=== PATIENT | female | born 1950 | race Caucasian/White ===

== ENCOUNTER 2020-03-30 14:59 | Outpatient (CLI) | payer MEDICARE, OTHER, SELFPAY ==
--- NOTE | ~2020-03-30 | MM_ITS ---
EXAMINATION: MM screening santy BI w sean HISTORY: Screening mammogram TECHNIQUE: Craniocaudal and mediolateral oblique 3-D tomosynthesis images were obtained and synthetic 2-D images were generated. CAD analysis was submitted and interpreted. COMPARISON: 10/21/2018, 01/28/2017, 07/13/2014 bilateral digital screening mammogram examinations BREAST PARENCHYMAL COMPOSITION: The breasts are extremely dense, which lowers the sensitivity of mamm ography. FINDINGS: Multiple bilateral benign .breast calcifications are noted. There is no evidence of suspici ous mass, calcification, or architectural distortion to suggest malignancy in either breast. There herbert s been no suspicious interval change. IMPRESSION: 1. No mammographic evidence of malignancy. 2. Recommend routine screening mammography in one year. BI-RADS Category 2: Benign finding(s). Reviewed, dictated and finalized at location A.
== END 2020-03-30 15:00 | disposition home or self-care (01) ==
LOC: ANHIMG 15:03
PROVIDERS: PCP Family Medicine; Visit Provider Family Medicine
DX: Z12.31 Encounter for screening mammogram for malignant neoplasm of breast (principal)
CPT/HCPCS: 77063; 77067

== ENCOUNTER 2021-02-09 10:00 | Outpatient (RCR) | payer MEDICARE, OTHER, SELFPAY ==
--- NOTE | 2021-01-17 16:25 | PTOPEVAL ---
PHYSICAL THERAPY EVALUATION AND PLAN OF CARE Thank you for referring Aspen Boucher to [facility].? The patient is scheduled to be seen for therapy? 2x/week for 4 weeks. Please review, sign, date and return this plan of care CLARA. I agree with and certify that the following plan of care is medically necessary. Referring Physician Date Evaluation Outpatient Past Medical History Neurological History Hx Parkinson's Disease Yes Musculoskeletal History Hx Osteoporosis Yes Diagnosis parkinson's disease/freezing Subjective Information Aspen is here today with a Query Text:As Reported By Patient/ diagnosis of PD with Family increased episodes of freezing . She reports that in the winter of 2020 she sprained her right ankle medially and laterally and it continues to be somewhat sore, but since then she noticed increased episodes of right foot sticking to the ground and freezing and scuffing. She does have some pain while walking at the end of the day, but she is able to do alot of yard work through out the day . She also experiences on/off symptoms with her medication and also experiences extreme episodes of fatigue on occasion. Right Ankle(s) Reported Pain Level 3 Pain Description Aching Lowest Pain Intensity 0 Greatest Pain Intensity 6 Pain Aggravating Factors Stair Climbing,Walking,Weight Bearing/Standing Pain Behaviors None Pain Score Pain Score 3: Self Report Interventions Used Interventions Used By Clinicians Exercise Lower Extremity Range of Motion General Lower Extremity Range of Motion Gross Lower Extremity Range of Motion grossly WNL, no noted ROM Comments deficits to right ankle Lower Extremity Muscle Strength Testing Hip Strength Left Hip Flexion Strength 4+ Good + Hip Abduction Strength 3+ Fair + Right Hip Flexion Strength 5 Normal Hip Abduction Strength 4- Good - Ankle Strength Right Ankle Dorsiflexion Strength 4+ Good + Ankle Eversion Strength 2+ Poor + Ankle Inversion Strength 4+ Good + Ankle Strength Comments right eversion painful to hold to MMT Palpation Assessment Palpation
--- NOTE | 2021-02-09 10:46 | PTOPEVAL ---
PHYSICAL THERAPY DISCHARGE NOTE Thank you for referring Aspen Boucher to [facility].? Please review, sign, date and return this plan of care CLARA. I agree with and certify that the following plan of care is medically necessary. Referring Physician Date Discharge Diagnosis parkinson's disease/freezing Subjective Information Aspen comes in today Query Text:As Reported By Patient/ stating that she realizes she Family needs to take some time to focus more on herself and her walking and her exercise. She also needs to realize that she does not need to do all of the things she thinks she does at once. She would like to finish up with PT at this time Self Report Pain Assessment Right Ankle(s) Reported Pain Level 0 Pain Description Aching Pain Aggravating Factors Stair Climbing,Walking,Weight Bearing/Standing Pain Behaviors None Pain Score Pain Score 0: Self Report Interventions Used Interventions Used By Clinicians Exercise Lower Extremity Muscle Strength Testing Hip Strength Left Hip Flexion Strength 5 Normal Hip Abduction Strength 4 Good Right Hip Flexion Strength 5 Normal Hip Abduction Strength 4+ Good + Ankle Strength Right Ankle Dorsiflexion Strength 5 Normal Ankle Eversion Strength 3+ Fair + Ankle Inversion Strength 5 Normal Rehab Teaching Rehab Teaching Teaching Topic Rehab Teaching Topic Components Exercise,Home Program As Pertains To Safety,Technique Recipient Patient Learning Preferences Demonstration,Discussion,One- on-One Instruction Barriers to Learning None Readiness to Learn Excellent Response Verbalizes Understanding Method Discussion Additional Rehab Teaching Comments discussed her lifestyle and appropriate and safe changes PT Clinical Summary Aspen would like to wrap up PT at this time. She feels confident in her ability to work on her exercise and how she moves so that she can continue to be functional and continue to improve her situation. We will d/c from PT at this time. Rehabilitation Potential
== END 2021-02-09 15:56 | disposition home or self-care (01) ==
LOC: ANHPT 10:00
PROVIDERS: PCP Family Medicine
DX: G20 Parkinson's disease (principal)
CPT/HCPCS: 97110; 97162

== ENCOUNTER 2022-02-01 14:26 | Outpatient (CLI) | payer MEDICARE, SELFPAY ==
[2022-02-01 15:23] LABS: Albumin Level 4.3 g/dL (3.4-5.0); Anion Gap 4 mmol/L (8-16); Blood Urea Nitrogen 14 mg/dL (7-18); Calcium 9.9 mg/dL (8.5-10.1); Carbon Dioxide 28 mmol/L (21-32); Chloride 102 mmol/L (98-108); Estimated Glomerular Filt Rate > 60; Glucose 93 mg/dL (70-99); Osmolality Calculated 278 mOsm/kg (285-295); Phosphorus 2.8 mg/dL (2.6-4.7); Potassium 4.2 mmol/L (3.5-5.1); Sodium 134 mmol/L (136-145); Thyroid Stimulating Hormone 0.92 uIU/mL (0.36-3.74)
[2022-02-04 10:33] LABS: Ionized Calcium 5.4 mg/dL (4.8-5.6)
[2022-02-06 15:11] LABS: Parathyroid Intact 127 pg/mL (14-64)
[2022-02-08 14:17] LABS: Vitamin D 25 Hydroxy 42 ng/mL (30-100)
== END 2022-02-01 14:27 | disposition home or self-care (01) ==
PROVIDERS: PCP Family Medicine; Visit Provider Internal Medicine Endocrinology, Diabetes & Metabolism
DX: M81.0 Age-related osteoporosis without current pathological fracture (principal); E83.52 Hypercalcemia
CPT/HCPCS: 36415; 80069; 82306; 82330; 83970; 84443

== ENCOUNTER 2022-02-20 08:39 | Outpatient (CLI) | payer MEDICARE, OTHER, SELFPAY ==
--- NOTE | ~2022-02-20 | NM_ITS ---
EXAMINATION: NM parathyroid imaging w spect DATE: 02/20/2022 12:01 INDICATION: Evaluate parathyroid adenoma TECHNIQUE: 20.3 mCi Tc99m tetrofosmin (Myoview) was administered by intravenous route. Anterior image s of the neck were obtained at 10 minutes and 2 1/2 hours. COMPARISON: None. FINDINGS/IMPRESSION: There is no focus of persistent activity in the area of the thyroid or mediastinum to suggest parathy roid adenoma. Reviewed, dictated and finalized at location A.
== END 2022-02-20 08:40 | disposition home or self-care (01) ==
PROVIDERS: PCP Family Medicine; Visit Provider Internal Medicine Endocrinology, Diabetes & Metabolism
DX: E21.3 Hyperparathyroidism, unspecified (principal); E55.9 Vitamin D deficiency, unspecified; M81.0 Age-related osteoporosis without current pathological fracture; Z87.442 Personal history of urinary calculi
CPT/HCPCS: 78071; A9500

== ENCOUNTER 2022-04-02 07:23 | Outpatient (CLI) | payer MEDICARE, SELFPAY ==
[2022-04-02 07:56] LABS: Creatinine Urine 83.39 mg/dL (40-278)
[2022-04-02 07:57] LABS: Creatinine 24 Hour Urine 1.04 g/24 hr (0.60-1.80); Total Volume 24 Hour Urine 1250 ml
[2022-04-06 05:14] LABS: Total Volume 1250 mL; Urine Calcium 21.4 mg/dL
== END 2022-04-02 07:24 | disposition home or self-care (01) ==
LOC: CHSLAB 07:25
PROVIDERS: PCP Family Medicine; Visit Provider Internal Medicine Endocrinology, Diabetes & Metabolism
DX: M81.0 Age-related osteoporosis without current pathological fracture (principal); E21.3 Hyperparathyroidism, unspecified; Z87.442 Personal history of urinary calculi
CPT/HCPCS: 81050; 82340; 82570

== ENCOUNTER 2022-08-06 11:26 | Outpatient (CLI) | payer MEDICARE, SELFPAY ==
[2022-08-06 13:19] LABS: Albumin Level 4.7 g/dL (3.5-5.1); Anion Gap 6 mmol/L (8-16); Blood Urea Nitrogen 16 mg/dL (7-17); Calcium 10.4 mg/dL (8.4-10.2); Carbon Dioxide 28 mmol/L (22-30); Chloride 101 mmol/L (98-107); Estimated Glomerular Filt Rate > 60; Glucose 92 mg/dL (65-110); Phosphorus 2.8 mg/dL (2.5-4.5); Potassium 4.1 mmol/L (3.4-5.0); Sodium 135 mmol/L (137-145)
[2022-08-06 13:32] LABS: Parathyroid Intact 134.5 pg/mL (7.5-53.5)
[2022-08-06 13:33] LABS: Vitamin D 25 Hydroxy 43.5 ng/mL
== END 2022-08-06 11:27 | disposition home or self-care (01) ==
LOC: ANHWCLAB 11:31
PROVIDERS: PCP Family Medicine; Visit Provider Internal Medicine Endocrinology, Diabetes & Metabolism
DX: E21.3 Hyperparathyroidism, unspecified (principal); N20.0 Calculus of kidney; E55.9 Vitamin D deficiency, unspecified; M81.0 Age-related osteoporosis without current pathological fracture
CPT/HCPCS: 36415; 80069; 82306; 83970

== ENCOUNTER 2022-08-10 07:22 | Outpatient (CLI) | payer MEDICARE, OTHER, SELFPAY ==
--- NOTE | ~2022-08-10 | MM_ITS ---
EXAMINATION: MM screening santy BI w sean HISTORY: Screening TECHNIQUE: Craniocaudal and mediolateral oblique 3-D tomosynthesis images were obtained and synthetic 2-D images were generated. CAD analysis was submitted and interpreted. COMPARISON: Comparison to multiple prior studies sequentially, with oldest reviewed study dated 08/2014. BREAST PARENCHYMAL COMPOSITION: The breasts are extremely dense, which lowers the sensitivity of mamm ography. FINDINGS: There are scattered benign-appearing bilateral breast calcifications. There are no new mass es, calcifications or architectural distortion in either breast to suggest malignancy. IMPRESSION: 1. No mammographic evidence of malignancy. 2. Recommend routine screening mammography in one year. BI-RADS Category 2: Benign finding(s). Reviewed, dictated and finalized at location B. [employer]
--- NOTE | ~2022-08-10 | DEXA_ITS ---
Bone Density Report Name: BILLIE MCCOY Age: 72 Sex: Female Ethnicity: White Date of : 1950 Indication: postmenopausal; screening for osteoporosis; Referring Provider: ISABELLA RICHTER Study: Bone densitometry was performed. Exam Date: August 10, 2022 Accession number: [id number] Bone Density: Region BMD T-score Z-score Classification AP Spine(L1-L4) 1.006 -0.4 1.8 Normal Femoral Neck (Left) 0.545 -2.7 -0.9 Osteoporosis Total Hip (Left) 0.707 -1.9 -0.4 Osteopenia Femoral Neck (Right) 0.562 -2.6 -0.8 Osteoporosis Total Hip (Right) 0.629 -2.6 -1.0 Osteoporosis Total Hip Mean 0.668 -2.3 -0.7 Osteopenia World Health Organization criteria for BMD impression classify patients as: Normal (T-score at or above -1.0), Osteopenia (T-score between -1.0 and -2.5), or Osteoporosis (T-score at or below -2.5). 10-year Fracture Risk: FRAX not reported because: Some T-score for Spine Total or Hip Total or Femoral Neck at or below -2.5 Treated for osteoporosis Clinical Information Provided by Patient: Smokes Is being treated for osteoporosis Has used the following medications: Reclast (i.e. zoledronate), Vitamin D, Calcium Patient maximum height was 64 Menopause Age: 48 Onset of menses at age 13 Number of children 2 Impression: The patient has osteoporosis, based on the Left Femoral Neck T-score. The patient has risk factors, including: smoking. Discussion: It is important to ask patients whether they are taking their medications and to encourage continued and appropriate compliance with their osteoporosis therapies to reduce fracture risk. It is also important to review their risk factors and encourage appropriate calcium and vitamin D intakes, exercise, fall prevention and other lifestyle measures. Follow-Up: Consider a repeat BMD and Vertebral Fracture Assessment (VFA) exam in 2 years or sooner if medically necessary, to reassess this patient's status. Reported by: RODOLFO on 08/10/2022 7:56:00 AM. Reviewed, dictated and finalized at location AYamila BARON
== END 2022-08-10 07:23 | disposition home or self-care (01) ==
PROVIDERS: PCP Family Medicine; Visit Provider Internal Medicine Endocrinology, Diabetes & Metabolism
DX: Z12.31 Encounter for screening mammogram for malignant neoplasm of breast (principal); M81.0 Age-related osteoporosis without current pathological fracture; M85.852 Other specified disorders of bone density and structure, left thigh; M85.851 Other specified disorders of bone density and structure, right thigh
CPT/HCPCS: 77063; 77067; 77080

== ENCOUNTER 2023-01-07 00:46 | Day surgery (SDC) | payer MEDICARE, OTHER, SELFPAY ==
[2022-12-27 14:01] VITALS: BMI 16.6
[2023-01-07 08:10] VITALS: BP 120/64; PULSE 59; RESP 18; TEMP 36.6; O2SAT 100; BMI 16.2
[2023-01-07] MEDS: LACTATED RINGERS 1,000 ML 150 ML IV CONT (08:35)
--- NOTE | 2023-01-07 08:49 | WPDHPUPDATE1 ---
History and Physical Update Update Date/Time: 01/07/23 08:49 History and Physical has been reviewed, including an updated exam of the patient. There are NO changes in the patient's condition. Risks, benefits, and alternatives have been discussed and questions answered. Patient agrees to proceed with procedure.
--- NOTE | 2023-01-07 09:17 | WPDANESEPPF ---
Anes - Initial Pre Proc Eval Procedure: Operation Date: 01/07/23 09:30 Proposed Procedures p Colonoscopy - Sebastian Moreau MD Date/Time: 01/07/23 09:17 Surgeon: Sebastian Moreau MD Pre Op Diagnosis: hx colon polyps,chronic idiopathic constipation Patient Data Age: 72 Gender: F Height: 1.63 m Weight: 43 kg Last Vital Signs Temp 36.6 C 01/07/23 08:10 Pulse 59 L 01/07/23 08:10 Resp 18 01/07/23 08:10 BP 120/64 01/07/23 08:10 Pulse Ox 100 01/07/23 08:10 O2 Del Method Room Air 01/07/23 08:10 Allergies Allergy/AdvReac Type Severity Reaction Status Date / Time gentamicin Allergy Intermediate Swelling Verified 12/27/22 14:03 Iodinated Contrast Media Allergy Hives Verified 12/27/22 14:03 Home Medications Medication Instructions Recorded Confirmed Type acetaminophen 650 mg 650 mg PO Q12H 10/11/20 12/27/22 History tablet,extended release (Tylenol 8 Hour) carbidopa ER 50 mg-levodopa 200 mg 1 tablet PO QHS 10/11/20 12/27/22 History tablet,extended release mirtazapine 30 mg tablet 30 mg PO HS 10/11/20 12/27/22 History naproxen 250 mg tablet 250 mg PO HS PRN Pain 10/11/20 12/27/22 History melatonin 10 mg capsule 10 mg PO QHS 07/26/21 12/27/22 History carbidopa ER 25 mg-levodopa 100 mg 1.5 tablet PO .SIX TIMES A DAY 02/01/22 12/27/22 History tablet,extended release cholecalciferol (vitamin D3) 25 2,000 unit PO DAILY 02/01/22 12/27/22 History mcg (1,000 unit) capsule lorazepam 0.5 mg tablet 0.5 mg PO TID PRN Anxiety 02/01/22 12/27/22 History lactulose 10 gram/15 mL oral 15 ml PO BID #946 mL 12/26/22 12/27/22 Rx solution docusate sodium 100 mg capsule 100 mg PO DAILY 12/27/22 12/27/22 History entacapone 200 mg tablet 200 mg PO .FOUR TIMES A DAY 12/27/22 12/27/22 History zoledronic acid 5 mg/100 mL in 1 ea IV DIRECTED 12/27/22 12/27/22 History mannitol 5 %-water intravenous piggybck (Reclast) Patient hx anesthesia problems: none Family hx anesthesia problems: none Results Review: All pre-operative results and documents have been reviewed as part of the pre-operative evaluation. [facility] Past Medical History Medical History (Updated 01/07/23 @ 09:18 by Jean Paul Mendez DO) Anxiety Depression GERD (gastroesophageal reflux disease) IBS (irritable bowel syndrome) Parkinson's disease Family History Family History Father Family history of malignant neoplasm of stomach Family history of malignant neoplasm Sibling Family history of malignant melanoma Other Alcoholism Cancer Social History Social History Smoking packs per day: 1.5 Smoking cigarettes per day: 30.0 Years smoked: 50 Smoking pack-years: 75.00 Smoking status: Current every day smoker Tobacco type: cigarettes Second hand tobacco smoke exposure: Yes Alcohol intake: current Alcohol use details: rarely Substance use: never Substance use type: does not use Living arrangements: with family Spiritual care concerns: No Anes - Eval Final PreProcedure Day of Procedure 01/07/23 09:17 Patient weight: normal Heart: regular rate and rhythm Lungs: clear to auscultation and normal air movement Airway: Mallampati scale class II Neurological: alert and oriented Last oral intake: >/= 8 hours ASA classification: III Emergent: no Anesthetic plan: proceed Anesthesia type and monitoring: general GIVS and standard monitoring Results Review: All pre-operative results and documents have been reviewed as part of the pre-operative evaluation. Informed Consent: The patient's anesthetic plan and its attendant risks and benefits were discussed with the patient/family/POA. Questions were solicited and answers provided to the satisfaction of the patient/family/POA.
[2023-01-07 09:56] VITALS: BP 119/66; PULSE 66; RESP 20; O2SAT 100
[2023-01-07 10:06] VITALS: BP 117/66; PULSE 67; RESP 20; O2SAT 100
[2023-01-07 10:16] VITALS: BP 124/75; PULSE 62; RESP 20; O2SAT 100
== END 2023-01-07 10:25 | disposition home or self-care (01) ==
PROVIDERS: PCP Family Medicine; Visit Provider Internal Medicine Gastroenterology
PROC: 0DJD8ZZ Inspection of Lower Intestinal Tract, Via Natural or Artificial Opening Endoscopic (ICD-10-PCS; CPT 45378; principal; 2023-01-07 09:30)
DX: K59.04 Chronic idiopathic constipation (principal); K62.1 Rectal polyp; G20 Parkinson's disease; K21.9 Gastro-esophageal reflux disease without esophagitis; E21.3 Hyperparathyroidism, unspecified; F17.210 Nicotine dependence, cigarettes, uncomplicated; F41.9 Anxiety disorder, unspecified; F32.A Depression, unspecified
CPT/HCPCS: 45385; 88305; J2704; J7120

== ENCOUNTER 2023-11-11 11:45 | Outpatient (CLI) | payer MEDICARE, OTHER, SELFPAY ==
--- NOTE | ~2023-11-11 | MM_ITS ---
EXAMINATION: MM screening santy BI w sean HISTORY: Screening TECHNIQUE: Craniocaudal and mediolateral oblique 3-D tomosynthesis images were obtained and synthetic 2-D images were generated. CAD analysis was submitted and interpreted. COMPARISON: Comparison to multiple prior studies sequentially, with oldest reviewed study dated 08/2014. BREAST PARENCHYMAL COMPOSITION: Dense: The breasts are extremely dense, which lowers the sensitivity of mammography. FINDINGS: There is no evidence of suspicious mass, calcification, or architectural distortion to sugg est malignancy in either breast. There has been no suspicious interval change. IMPRESSION: 1. No mammographic evidence of malignancy. 2. Recommend routine screening mammography in one year. BI-RADS Category 1: Negative Reviewed, dictated and finalized at location B.
== END 2023-11-11 11:46 | disposition home or self-care (01) ==
PROVIDERS: PCP Family Medicine; Visit Provider Family Medicine
DX: Z12.31 Encounter for screening mammogram for malignant neoplasm of breast (principal)
CPT/HCPCS: 77063; 77067

== ENCOUNTER 2025-01-08 14:30 | Outpatient (CLI) | payer MEDICARE, OTHER, SELFPAY ==
--- NOTE | ~2025-01-08 | XR_ITS ---
Lumbosacral Spine: AP and lateral views Clinical History: Pain Findings: The normal lordotic curve is maintained. The vertebral bodies and posterior elements are i ntact. There is advanced degenerative disc narrowing at L2-L3. No instability evident on flexion or e xtension. There is moderate degenerative disc narrowing L3-L4. There is moderate facet arthropathies of the lumbar spine. The sacroiliac joints are normally outlined. Impression: Moderate degenerative spondylitic changes, as above. Reviewed, dictated and finalized at location M. Impression: Moderate degenerative spondylitic changes, as above.
--- OUTSIDE RECORDS SUMMARY | 2025-01-08 14:33 | XMS_ITS | Clinical Summary ---
Author Organization [facility] Address [address] [place] [address] Care Team Providers Care Counter Server Name Role Phone Roxie Meadows MD Primary Care Provider [phone] Wilner Rosario MD Unavailable [phone] Allergies Active Allergy Reactions Criticality Noted Date Comments Gentamicin Unknown Iodinated Contrast Media Hives High Reaction: Hives, Medications melatonin 10 mg tablet 1 tablet (10 mg total) nightly Active LORazepam (ATIVAN) 0.5 mg tablet Take by mouth 3 (three) times a day as needed Take 1 tab once day and 1 tab up to twice daily thereafter PRN 0 Active docusate sodium (COLACE) 100 mg capsuleIndicati ons:constipatio n Take 1 capsule (100 mg total) by mouth 3 (three) times a day Active bisacodyl EC (DULCOLAX EC) 5 mg EC tabletIndicatio ns:constipation Take 3 tablets (15 mg total) by mouth daily as needed for constipation Active acetaminophen (TYLENOL) 500 mg tablet Take 2 tablets (1,000 mg total) by mouth daily Active naproxen (ALEVE) 220 mg tablet Take 1 tablet (220 mg total) by mouth nightly Active zoledronic acid 4 mg/5 mL injection Active mirtazapine (REMERON) 30 mg tabletIndicatio ns:Other specified anxiety disorders TAKE 1 TABLET BY MOUTH EVERY DAY IN THE EVENING 90 tablet 2 3 Active carbidopa-levod opa CR (SINEMET CR) 50-200 mg per CR tablet TAKE 1 TABLET BY MOUTH NIGHTLY 90 tablet 3 3 Active carbidopa-levod opa (SINEMET) 25-100 mg per tabletIndicatio ns:Parkinson's disease (HCC) TAKE 1 AND 1/2 TABLETS BY MOUTH AT 4AM, 7AM, 10PM, 1PM, 4PM, 7PM 810 tablet 1 4 Active Active Problems Problem Noted Date Diagnosed Date Orthostatic hypotension 08/16/2021 Radial styloid tenosynovitis 03/27/2019 REM sleep behavior disorder 03/27/2019 S/P laparoscopic appendectomy 01/13/2019 Serrated adenoma of colon 01/13/2019 Mass of appendix 12/17/2018 Anxiety disorder 03/19/2018 Disturbance in sleep behavior 03/19/2018 Keratosis, senilis 04/19/2017 Overview (09/20/2017): Description: Reassured Parkinson's disease 03/13/2017 Assessment & Plan (09/26/2022 5:18 PM CDT): She has relatively mild stage 2 PD with R>L resting tremor and bradykinesia, with good response to levodopa. She has wearing off between that is becoming more bothersome, particularly mid-day. She also has peak-dose dyskinesias that are becoming bothersome, and more recent development of orthostasis as another side-effect. She is doing very well cognitively. At this point we would like to try adding a low dose of amantadine (somewhat reluctantly) to benefit both parkinsonism and dyskinesias. We will need to be cautious about potential side-effects including impaired cognition (less of a concern in her case), orthostasis, and constipation (which are big concerns for her). For these reasons we do not want to increase beyond 100mg once daily. We discussed these potential side-effects with her, and she will notify us if she has any problems. For constipation, we recommended she retry Miralax starting with 1 tbsp daily and increasing as needed up to 2 tbsp twice daily as well as plenty of water, salt and activity. Her mood remains well good with mirtazapine. f lightheadedness worsens we may need to add fludrocortisone in the future, but for now just encourage her to maintain good fluid and salt intake and elevate the head of the bed 4-6 inches on cinder blocks. She has persistent RBD despite melatonin 10mg, but is not injuring herself or her . We can increase up to 20mg in the future, but will wait to see how she responds to amantadine. I Recommendations: -Continue same carbidopa/levodopa -Start amantadin e 100mg once daily. We do not want to increase beyond that due to potential for worsening orthostasis and constipation. Strategy and side-effects discussed. -Start Miralax daily (and increase to twice daily if needed). Continue docusate and PRN bisacodyl. -continue mirtazapine 30mg nightly -continue melatonin 10mg nightly for RBD -Encouraged regular exercise. - encourage lots of fluid and salt intake. - elevate head of the bed 4-6 inches on cinder blocks to help reduce orthostasis. - continue caffeine as she is for treating orthostasis. Assessment & Plan (03/08/2022 1:35 PM CDT): She has relatively mild stage 2 PD with R>L resting tremor and bradykinesia, with good response to levodopa. She does not have wearing off with most doses, with the exception of the mid-afternoon to evening when she frequently has recurrent tremor with associated sleepiness and diffuse pain. She also has some cramping sensation in the right foot with toe curling that on exam at last visit demonstrated clear dystonia. She also has mild dyskinesia. At this point, I would like to be able to give her more levodopa but her standing blood pressures are still 80-90 systolic and she is lightheaded at times. We previously tried midodrine for orthostatic symptoms but it resulted in high sitting BP (to 200s systolic with whooshing in her head). For now we will keep the same CD/LD dose and have her start low dose fludrocort and check sitting/standing BPs and report back to us. She should start [employer] youtube channel exercises but is not interested in PT. Constipation continues to be an issue, which can lead to worsening PD symptoms. She tried and failed Miralax, Linzess and Amitiza (no effect). We recommended she continue stool softener, PRN Dulcolax pills and PRN bisacodyl suppository. She does not have any evident cognitive impairment, and overall she is doing extremely well considering symptom onset was 10 years ago. Mood and anxiety are not great but she is on mirtazapine 30 mg which is very helpful for sleep and she thinks part of her depression is situational (Covid isolation, caring for her after a major stroke). If this doesn't improve as she starts to socialize more at a gym she will be attending, then she should let me know. RBD is well controlled with melatonin. Recommendations: -Check orthostastic BPs at home (sitting and after standing for 3 minutes) for a week and report back us via [employer]. - Start fludrocort as planned. -Continue CD/LD 25/100 1.5 tabs every 3 hours, and CD 50/200 1 tab at bedtime, but we will likely try increasing once we get BPs controlled. -Start gym exercise. -continue mirtazapine 30mg nightly -continue melatonin 10mg nightly for RBD -Let us know if interested in starting an antidepressant. -use bisacodyl suppository PRN for constipation Assessment & Plan (08/16/2021 3:19 PM MUD MIXER): She has relatively mild stage 2 PD with R>L resting tremor and bradykinesia, with good response to levodopa. She does not have wearing off with most doses, with the exception of the mid-afternoon when she frequently has recurrent tremor with associated sleepiness and diffuse pain. She also has some cramping sensation in the right foot with toe curling that on exam today demonstrated clear dystonia. Adding amantadine could be a reasonable option but often makes dystonia worse whereas it can reduce dyskinesia. We discussed trying to increase her mid-day CD/LD dose to combat this with wearing off, but she is hesitant as prior attempts to uptitrate have worsened orthostasis. We previously tried midodrine for orthostatic symptoms but it resulted in high sitting BP (to 200s systolic). For now we will keep the same CD/LD dose and have her check sitting/standing BPs and report back to us. Another provider prescribed fludrocortisone which is a reasonable option to try next, if needed, and may allow us to increase CD/LD further. Constipation continues to be an issue, which can lead to worsening PD symptoms. We recommended PRN bisacodyl suppository as a next step in addition to her current regimen. We also discussed dietary strategies and increased fluid intake. She does not have any evident cognitive impairment, and overall she is doing extremely well considering symptom onset was 10 years ago. Mood and anxiety continue to be well controlled with mirtazapine. Recommendations: -check orthostastic BPs at home (sitting and after standing for 3 minutes) for 2 weeks and report back us via [employer] -continue CD/LD 25/100 1.5 tabs every 3 hours, and CD 50/200 1 tab at bedtime -continue mirtazapine 30mg nightly -continue melatonin 10mg nightly for RBD -use bisacodyl suppository PRN for constipation Assessment & Plan (03/06/2021 12:37 PM CDT): Ms. Boucher has stage 2 PD (at last in-person visit) as evidenced by tremor, freezing, and bradykinesia. Her motor symptoms have been fairly stable with excellent response to levodopa, although she has end of dose and off period dystonia, biphasic dyskinesia with right leg posturing and occasional dose failures in the afternoons. At this point, we will keep her doses the same. She feels taking smaller, more frequent doses is the best solution to handle her symptoms and cause the least amount of lightheadedness and dyskinesia. She has had substantial orthostasis in the past but never started the fludorcort we had given her because she fears HTN and had some HTN on midodrine in the past. She drinks daily caffeine (10 cups a day) and eats a high salt diet. In the past, the orthostasis limited increasing CD/LD. At this point, the lightheadedness only occurs at night or in the early years teacher and she wishes to leave this untreated. She also has frequent constipation and has failed several drugs (including Linzess which caused dairrhea, Miralax, Amitiza, Dulcolax which didn't really work on their own). She is working with her GI on this. He has given her Amitiza and she may try taking this plus Dulcolax. She only weighs about 97 lbs and feels bloated. She could try Gas-X and should force kcals. She is bothered by RBD but is concerned to try clonazepam because she is a bit unstable on her feet at night. I suggested increasing melatonin to 20 mg qhs. She is not interested in PT. Her mood and sleep are fairly good on mirtazapine and we will continue this, though it could potentially worsen the RBD. She continues on once daily lorazepam, usually one in the morning as she wakes up anxious and has substantial tremor in the AM. Recommendations: - Continue exercise. - Same levodopa IR and ER--she may take an extra 1/2 tab of IR as needed or take a dose up to 30 minutes early. - Same once daily dosing of lorazepam, same mirtazapine. - If lightheadedness worsens, start fludrocortisone. - Continue Ensure, continue to force kcals. - Increase melatonin to 20 mg qhs. - Take Dulcolax plus Amitiza for severe constipation. Assessment & Plan (08/15/2020 4:50 PM MUD MIXER): Ms. Boucher has stage 2 PD (at last in-person visit) as evidenced by tremor, freezing, and bradykinesia. Her motor symptoms have been fairly stable with excellent response to levodopa, although she has end of dose and off period dystonia, end- dose dyskinesias with right leg posturing and occasional dose failures in the afternoons. At this point, we will keep her doses the same. She feels taking smaller, more frequent doses is the best solution to handle her symptoms and cause the least amount of lightheadedness and dyskinesia. She has had substantial orthostasis in the past but never started the fludorcort we had given her at last visit because she fears HTN and had some HTN on midodrine in the past. She drinks daily caffeine (10 cups a day) and eats a high salt diet. In the past, the orthostasis limited increasing CD/LD. At this point, she does not wish to start fludrocort but I suggested that if lightheadedness worsens, she will absolutely need to do this. She also has frequent constipation and has failed several drugs (including Linzess and Miralax). She is working with her GI on this. She is bothered by RBD and melatonin has not been helpful. We will start low dose clonazepam. Her mood and sleep are fairly good on mirtazapine and we will continue this, though it could potentially worsen the RBD. She continues on once daily lorazepam, usually one in the morning as she wakes up anxious and has substantial tremor in the AM. Recommendations: - Continue exercise. - Same levodopa IR and ER, same once daily dosing of lorazepam, same mirtazapine. - If lightheadedness worsens, start fludrocortisone. -We will rx clonazepam for her bothersome RBD. Assessment & Plan (02/24/2020 3:28 PM CDT): Ms. Boucher has stage 2 PD as evidenced by tremor, freezing, and bradykinesia. Her motor symptoms have been fairly stable with excellent response to levodopa, although she has end of dose and off period dystonia, end-dose dyskinesias with right leg posturing and frequent dose failures in the afternoons. Specifically, she feels that her 1pm dose frequently does not work or provides suboptimal benefit. However, she has had substantial orthostasis with daily near-syncopal episodes. She drinks daily caffeine (10 cups a day) and eats a high salt diet. She took midodrine 5mg TID in the past, but had headaches and was hypertensive with that. In the past, the orthostasis limited increasing CD/LD. Thus, we will augment her blood pressure with fludrocortisone (initially avoiding midodrine to avoid the previous headaches, but this could be restarted at a lower dose if needed). She will continue to measure her blood pressures with sitting and standing. Once this is better controlled then she will increase the 1 pm levodopa. This could be within 2 weeks. She also has frequent constipation, and has not been taking daily stool softeners. We discussed a tiered approach with dietary modifications, daily Miralax titrated to benefit and avoiding side effects then if needed glycerin suppositories. Only after those steps should an infrequent laxative be needed. Recommendations: - Check orthostatic blood pressures when lightheaded and at least once a day. - Take fludrocortisone 0.1mg daily to help with low blood pressures. Maintain high fluid and salt intake. Continue taking blood pressures and watch for supine hypertension and swelling the feet. Side effects and strategy discussed. - Continue taking caffeine daily. - If notice supine hypertension at night, then elevate head of bed 4-6 inches on blocks -- this reduces the supine hypertension and helps to reduce the orthostasis as well. - After 2 weeks and better control of blood pressure drops, then increase 1pm dose of CD/LD 25/100 to 2 tablets instead of 1.5 tablets. Continue other doses of CD/LD 25/100 at current dose (1.5 tablet) every 3 hours. - Miralax daily for constipation with dietary modifications as discussed. - Continue daily rigorous exercise. Assessment & Plan (03/27/2019 10:25 AM CDT): She has stage 2 parkinsonism as evidenced by asymmetric rigidity, tremor, rigidity and bradykinesia. She additionally has masked facies, mild hypophonia, decreased arm swing (with right arm held flexed), postural instability, and reported constipation, drooling, occasional RBD and anosmia. In addition to those symptoms, she had brisk reflexes, positive jaw jerk and snout reflex, positive Seals's reflex and history of lightheadedness when arising from chairs. Given the constellation of symptoms over a now 6 year period, the most likely diagnosis is Idiopathic Parkinson Disease. Given the asymmetry, Corticobasal Ganglionic Degeneration is still in the differential but she had no eye gaze problems, no alien limb, no myoclonus, and no memory and thinking problems. Given the constipation and lightheadedness, Multiple Systems Atrophy is also still in the differential. However, we believe, at this time that she has IPD. Since starting levodopa (up to 1.5 tabs five times daily currently), she is dramatically better. However, she still is bothered by toe curling and twitching during the day and at bedtime that she thinks gets worse when she is about due for the next dose. She has some mild dyskinesia as well. Increasing carbi/levo to 2 tabs in the past caused severe orthostasis and she had a bad reaction to midodrine. She still has occasional lightheadedness but doesn't feel it warrants fludrocort at this time. We will change to levodopa at same dose only 6 times/day (every 3 hours). Weight, mood and sleep are better with mirtazapine but she does have RBD and could add melatonin to see if this helps. If her BP drops when we increase the levodopa, she will need to try fludrocort. She has anxiety and depression that are better with mirtazapine and she is now off of lorazepam entirely. She has a current radiculopathy with pain in the neck and down the left arm and even into the hand. She has done PT but should f/u with her PMD about this and could consider gabpentin, meloxiacam or steroid injections. Recs: 1. Change carbi/levo to 1.5 tabs q 3 hours, 6x/day. 2. Start melatonin for RBD. 3. Same mirtazapine. 4. Take doses at least 30 minutes before food. 5. Watch blood pressures--continue to increase salt and fluids. Consider fludrocortisone if needed since she had bad reaction to midodrine. 6. Could consider gabapentin, meloxicam or steroid injections for her neck/shoulder radiculopathy. 7. Okay to try different laxatives for the constipation. 8. Not interested in PIB or PAND (no to PET, MRI and LP, would only be willing to do thinking testing and brain donation--severe claustrophobia). Assessment & Plan (09/17/2018 5:13 PM CDT): She has stage 2 parkinsonism as evidenced by asymmetric rigidity, tremor, rigidity and bradykinesia. She additionally has masked facies, mild hypophonia, decreased arm swing (with right arm held flexed), postural instability, and reported constipation, drooling, occasional RBD and anosmia. In addition to those symptoms, she had brisk reflexes, positive jaw jerk and snout reflex, positive Seals's reflex and history of lightheadedness when arising from chairs. Given the constellation of symptoms over a 5 year period, the most likely diagnosis is Idiopathic Parkinson Disease. Given the asymmetry, Corticobasal Ganglionic Degeneration is still in the differential but she had no eye gaze problems, no alien limb, no myoclonus, and no memory and thinking problems. Given the constipation and lightheadedness, Multiple Systems Atrophy is also still in the differential. However, we believe, at this time that she has IPD. Since starting levodopa (up to 1.5 tabs qid), she is dramatically better. However, she still is bothered by toe curling and twitching during the day and at bedtime that she thinks gets worse when she is about due for the next dose. She has some mild dyskinesia as well. Increasing carbi/levo to 2 tabs in the past caused severe orthostasis and she had a bad reaction to midodrine. She still has occasional lightheadedness. We will change to levodopa at same dose only 5 times/day. Weight, mood and sleep are better with mirtazapine but she does have RBD and could add melatonin to see if this helps. If her BP drops when we increase the levodopa, she will need to try fludrocort. She has anxiety and depression that are better with mirtazapine and she is now off of lorazepam entirely. 1. Change carbi/levo to 1.5 tabs at 4am, 8am, 12pm, 4pm, 8pm. 2. Start melatonin for RBD. 3. Same mirtazapine. 4. Take doses at least 30 minutes before food. 5. Watch blood pressures--continue to increase salt and fluids. Consider fludrocortisone if needed since she had bad reaction to midodrine. 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 03/13/2017 Lightheadedness 03/13/2017 Immunizations Immunization Administration Dates Next Due Influenza, Quadrivalent, Hig h Dose, Preservative Free, Intrr 02/19/2020 Influenza, Quadrivalent, Spl it, Intramuscular 03/23/2019 Influenza, Trivalent, High D ose, Split, Preservative Free, Intramuscular 03/23/2019,04/07/2018,04/06/2018,03/31 Influenza, Trivalent, IM (MDV) 03/25/2014 Influenza, Trivalent, Preser vative Free, Intramuscular 04/09/2018,04/13/2016,04/03/2015 Pneumococcal Conjugate PCV 13 10/07/2018 Pneumococcal Polysaccharide PPV23 01/16/2020 Social History Tobacco Use Types Packs/Day Years Used Date Smoking Tobacco: Every Day Smokeless Tobacco: Never Alcohol Use Standard Drinks/Week Comments Yes 2 (1 standard drink = 0.6 oz pur e alcohol) Personal Safety Answer Date Recorded Getting School Help Needed Not on file 06/14 Comments Unknown Sex and Gender Information Value Date Recorded Sex Assigned at Not on file Legal Sex Female 7:50 PM MUD MIXER Gender Identity Female 08/08/2020 9:59 AM MUD MIXER Sexual Orientation Straight 08/08/2020 9: 59 AM MUD MIXER Occupation Industry Job Start Date Job End Date retired nurse Not on file Not on file Not on file Obstetrics History Last Filed Vital Signs Vital Sign Reading Time Taken Comments Blood Pressure 111/68 03/27/2019 9:15 AM CDT Pulse 93 03/27/2019 9:15 AM CDT Temperature - - Respiratory Rate - - Oxygen Saturation 96% 04/16/2018 9:29 AM MUD MIXER Inhaled Oxygen Concentration - - Weight 45.4 kg (100 lb) 09/26/2022 4:16 PM CDT Height 162.6 cm (5' 4) 03/27/2019 9:15 AM CDT Body Mass Index 17.16 03/27/2019 9:15 AM CDT Plan of Treatment Health Maintenance Due Date Last Done Comments Breast Cancer Screening-Mammogram 1952 Colon Cancer Screening-Colonoscopy 1950 Fall Risk Assessment 1950 Hepatitis C Screening 1950 Osteoporosis Screening-Bone Density Scan 1952 DTaP/Tdap/Td Vaccine (1 - Tdap) 1963 Hepatitis B Screening 1970 Zoster Vaccine (1 of 2) 2002 Well Visit 65+ 2017 Depression Screening 03/27/2020 03/27/2019 Influenza Vaccine (#1) 2025 0, 03/23/2019, 03/23/2019, Additional history exists Pneumococcal vaccine 65+ Completed 01/16/2020, 09/10 Insurance MEDICARE [facility] MEDICARE [facility] [place] [address] Care Teams Counter Server Relationship Specialty Start Date End Date Roxie Meadows MD [address] [place] [address] PCP - General Family Medicine 08/16/21 Wilner Rosario MD [address] [id number] Referring Physician Neurology 11/20/24
--- OUTSIDE RECORDS SUMMARY | 2025-01-08 14:33 | XMS_ITS | Encounter Summary ---
Author Organization [facility] Address [facility] [place] [address] Care Team Providers Care Banker Mason Name Role Phone Roxie Meadows MD Primary Care Provider Encounter Details Date Type Department Care Team (Latest Contact Info) Description 01/07/2025 Travel Social History Tobacco Use Types Packs/Day Years Used Date Smoking Tobacco: Never Cigarettes 1.5 50 - 01/16/2024 Passive Smoke Exposure: Current Smokeless Tobacco: Never Comments:Proivder to employment counselor Alcohol Use Standard Drinks/Week Comments Yes 0 (1 standard drink = 0.6 oz pur e alcohol) rarely OASIS D0700: Social Isolation Answer Da te Recorded Frequency of experiencing loneliness or isolatio n Never 10/29/2024 OASIS A1250: Transportation Answer Date Recorded Lack of Transportation (Medical) No 10/29/2024 Lack of Transportation (Non-Medical) No 10/29/2024 Patient Unable or Declines to Respond No 10/29/2024 OASIS B1300: Health Literacy Answer Don e Recorded Frequency of needing help to read materials from doctor or pharmacy Never 10/29/2024 PHQ-2 Answer Date Recorded Patient Health Questionnaire-2 Score 0 04/29/2024 Comments No Sex and Gender Information Value Date Recorded Sex Assigned at Female 08/14/2024 5:42 AM WATCH TRAIN INSPECTOR Legal Sex Female 7:58 AM CDT Gender Identity Not on file Sexual Orientation Not on file documented as of this encounter Plan of Treatment Upcoming Encounters Date Type Department Care Team (Late st Contact Info) Description 01/11/2025 10:00 AM CDT Appointment [facility] [address] [place] [address] Tho Horner, PT 7[address] [place] [address] Stefan Dsouza, COMMUNICATIONS PROFESSIONAL [address] [place] [address] 01/13/2025 9:15 AM CDT Appointment [facility] [address] [place] [address] Tho Horner, PT 725 [place] [address] 01/15/2025 8:30 AM CDT Appointment [facility] [address] [facility] [place] [address] Fam Valadez MD [address] [facility] [address] [place] [address] 01/21/2025 10:00 AM CDT Office Visit [facility] THREE [facility] [address] [place] [address] Fam Valadez MD 3 [facility] [address] [place] [address] 01/22/2025 10:20 AM CDT Office Visit [facility] Multispecialty Care - [facility] 3 [facility], [address] [place] [address] Wilner Rosario MD 3 [place] [address] 03/08/2025 10:00 AM CDT Office Visit [facility] [address] [place] [address] Nicholas Simms MD Three [facility] [address] [place] [address] 05/04/2025 2:00 PM WATCH TRAIN INSPECTOR Office Visit [facility] [address] [address] Ac Connelly MD 3 [facility] [address] [place] [address] documented as of this encounter Visit Diagnoses Not on filedocumented in this encounter Care Teams Banker Mason Relationship Specialty Start Date End Date Roxie Meadows MD [address] [address] PCP - General FAMILY PRACTICE 04/01/20 documented as of this encounter
--- OUTSIDE RECORDS SUMMARY | 2025-01-08 14:33 | XMS_ITS | Encounter Summary ---
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 fluctuating manifestations ([facility]) Procedures OFFICE/OUTPATIENT NEW LOW MDM 30-44 MINUTES OFFICE/OUTPT VISIT,NEW,LEVL IV OFFICE/OUTPT VISIT,NEW,LEVL V OFFICE/OUTPT VISIT,EST,LEVL III OFFICE/OUTPT VISIT,EST,LEVL IV OFFICE/OUTPT VISIT,EST,LEVL V Wilner Rosario MD 3 [place] [address] Phone: tel: fax: [facility] [address] [place] [address] Phone: tel: fax: Referral ID Status Reason Start Date Expiration Date Visits Requested Visits Authorized [id number] Authorized Physical Therapy 12/23/2024 12/23/2025 20 20 Encounter Details Date Type Department Care Team (Latest Contact Info) Description 01/07/2025 7:43 AM CDT Hospital Encounter [facility] [address] [place] [address] Tho Horner, PT [address] [place] [address] Wilner Rosario MD 3 [place] [address] Parkinson's Disease Social History Tobacco Use Types Packs/Day Years Used Date Smoking Tobacco: Never Cigarettes 1.5 50 - 01/16/2024 Passive Smoke Exposure: Current Smokeless Tobacco: Never Comments:Proivder to sexual abuse counsellor Alcohol Use Standard Drinks/Week Comments Yes 0 [...] Sex Assigned at Female 08/14/2024 5:42 AM MONOMER RECOVERY SUPERVISOR Legal Sex Female 7:58 AM CDT Gender Identity Not on file Sexual Orientation Not on file documented as of this encounter Progress Notes * Tho Horner, PT - 01/07/2025 7:45 AM CDT PHYSICAL THERAPY TREATMENT NOTE Time In: 744 Time Out: 843 Total Time: 59' Name: Aspen Boucher : 1950 Past Medical History[1] Past Surgical History[2] Subjective: Diagnosis: Parkinson's Disease Referring Physician: Wilner Rosario MD Onset Date: Chronic Treatment Day: 2 Total Approved Visits: 10 Therapy Plan of Care: 2x/week for 10 visits Return to MD: SHERYL Subjective Note: Pt reports that she has been doing fairly well today. She states that her HEP has been going well thus far. She has work on them at least once daily since her IE. Location of Pain: Low back Pre-treatment Pain: Did not rate Post-treatment Pain: Did not rate Restriction/Precaution: DBS implanted in January 2024, Parkinson's disease, neuropathy in the Les. Rigidity R>L, currently takes carbidopa levodopa to reduced these symptoms of rigidity. Pt notes she has Orthostatic hypotension, an Ascending aortic anyeursm, and osteoporosis as well. Objective: Treatment Performed: Therapeutic Exercise - 84592 Minutes Performed: 15' Intervention: -Seated marches GTB x 20 -Seated hip abduction GTB x 20 -Standing hip 3 way GTB x 20 B -Standing heel and toe raises x 20 Manual Therapy - 73535 Minutes Performed: Intervention: Neuromuscular Reeducation - 12867 Minutes Performed: Intervention: Therapeutic Activities - 91180 Minutes Performed: 44' -Nustep level 3 UE and LE x 10' to improve functional endurance -8 step-ups w/ foam and no UE assist x 15 -GTB side stepping x 3 laps -GTB monster walks x 3 laps -Sit to stand w/out UE assist x 15 -Sit to stands w/out UE assist with one step forward alternating x 15 Modalities Minutes Performed: Intervention: Total Treatment Time: 59' Education Performed: Encouraged continuing with her HEP at this time. Also discussed with pt that Iwill look into resources or opportunities of parkinson's exercise courses as well as pt noted interest in those opportunities as well. ASSESSMENT: Pt tolerated therapy very well today, but did note very good fatigue by the end of treatment. She did required roughly 4 breaks throughout today's treatment, especially when performing the standing activity throughout today's treatment. Pt had the most difficulty with the step ups while standing onthe foam and with taking steps following a sit to stand. Will continue progressing pt as tolerated. PLAN: Plan for next visit: Work to improve gross LE strength, dynamic balance, and static balance. Can utilize tasks where the pt is required to multitask when ambulating as well. [1] Past Medical History: Diagnosis Date Anxiety disorder, unspecified Aortic aneurysm Arthritis Basal cell carcinoma Cataracts, bilateral treated Constipation Depression decades ago Disease of thyroid gland hyperparathyroidism hyperparathyroidism GERD (gastroesophageal reflux disease) 30 or more years ago Hyperparathyroidism, unspecified ([facility]/HCC) Neuromuscular disorder ([facility]/HCC) parkinson's Diagnosed fall 02016 Osteoporosis Parkinson's disease ([facility]) 2017 [2] Past Surgical History: Procedure Laterality Date APPENDECTOMY 2019 BRAIN SURGERY DBS 01/31 COLONOSCOPY 2022 EYE SURGERY 5 years ago cataract documented in this encounter Plan of Treatment Upcoming Encounters Date Type Department Care Team (Late st Contact Info) Description 01/11/2025 10:00 AM CDT Appointment [facility] [address] [place] [address] Tho Horner, PT [address] [place] [address] Stefan Dsouza, POWER TRANSFORMER ASSEMBLER [address] [place] [address] 01/13/2025 9:15 AM CDT Appointment [facility] [address] [place] [address] Tho Horner, PT [address] [place] [address] 01/15/2025 8:30 AM CDT Appointment [facility] [place] [address] Fam Valadez MD 3 [facility] [address] [place] [address] 01/21/2025 10:00 AM CDT Office Visit [facility] THREE [facility] [place] [address] [place] [address] Fam Valadez MD 3 [facility] [address] [place] [address] 01/22/2025 10:20 AM CDT Office Visit [facility]pecialty Care - [facility] 3 [facility], [address] [place] [address] Wilner Rosario MD 3 [facility] [place] [address] 03/08/2025 10:00 AM CDT Office Visit [facility] [address] [place] [address] Nicholas Simms MD Three [facility] [address] [place] [address] 05/04/2025 2:00 PM MONOMER RECOVERY SUPERVISOR Office Visit [facility] [address] [address] Ac Connelly MD 3 [facility] [address] [place] [address] documented as of this encounter Visit Diagnoses Diagnosis Parkinson's disease ([facility])- Primary Paralysis agitans documented in this encounter Care Teams Client Relations Associate Relationship Specialty Start Date End Date Roxie Meadows MD [address] [facility] [place] [address] PCP - General FAMILY PRACTICE 04/01/20 documented as of this encounter
--- OUTSIDE RECORDS SUMMARY | 2025-01-08 14:33 | XMS_ITS | Referral Summary ---
Author Organization [facility] Address [address] [place] [address] Care Team Providers Care Tour Coordinator Name Role Phone Roxie Meadows MD Primary Care Provider [phone] Wilner Rosario MD Unavailable [phone] Allergies Active Allergy Reactions Criticality Noted Date [...] a week and report back us via [email or web address]. - Start fludrocort as planned. -Continue CD/LD [...] constipation Assessment & Plan (08/16/2021 3:19 PM CANOPY INSPECTOR): She has relatively mild stage 2 PD [...] 2 weeks and report back us via Bottlet -continue CD/LD 25/100 1.5 tabs every 3 [...] only occurs at night or in the divinity professor and she wishes to leave this untreated. [...] constipation. Assessment & Plan (08/15/2020 4:50 PM CANOPY INSPECTOR): Ms. 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 file Not on file Not on file Last Filed Vital Signs Vital Sign Reading Time Taken Comments Blood Pressure 111/68 03/27/2019 9:15 AM CDT Pulse 93 03/27/2019 9:15 AM CDT Temperature - - Respiratory Rate - - Oxygen Saturation 96% 04/16/2018 9:29 AM CANOPY INSPECTOR Inhaled Oxygen Concentration - - Weight 45.4 kg (100 lb) 09/26/2022 4:16 PM CDT Height 162.6 cm (5' 4) 03/27/2019 9:15 AM CDT Body Mass Index 17.16 03/27/2019 9:15 AM CDT Plan of Treatment Not on file Insurance MEDICARE [facility] MEDICARE [facility] Care Teams Tour Coordinator Relationship Specialty [place] [address] [place] [address] [place] [address] PCP - General Family Medicine 08/16/21 Wilner Rosario MD [address] [address] Referring Physician Neurology 11/20/24
--- OUTSIDE RECORDS SUMMARY | 2025-01-08 14:34 | XMS_ITS | Encounter Summary ---
Author Organization [facility] Address [facility] [place] [address] Care Team Providers Care R Developer Name Role Phone Roxie Meadows MD Primary Care Provider Encounter Details Date Type Department Care Team (Late st Contact Info) Description 11/13/2024 MyChart Message Enc [facility] Neurology Speciality Clinic - [address] [place] [address] Wilner Rosario MD 3 [place] [address] RE: referral to Dr Cabrera Social History Tobacco Use Types Packs/Day Years Used Date Smoking Tobacco: Never Cigarettes 1.5 50 - 01/16/2024 Passive Smoke Exposure: Current Smokeless Tobacco: Never Comments:Proivder to counseling aide Alcohol Use Standard Drinks/Week Comments Yes 0 [...] Sex Assigned at Female 08/14/2024 5:42 AM RAWHIDE BONE ROLLER Legal Sex Female 7:58 AM CDT Gender Identity Not on file Sexual Orientation Not on file documented as of this encounter Plan of Treatment Upcoming Encounters Date Type Department Care Team (Late st Contact Info) Description 01/11/2025 10:00 AM CDT Appointment [facility] [address] [place] [address] Tho Horner, PT [address] [place] [address] Stefan Dsouza, SKATE MAKER [address] [place] [address] 01/13/2025 9:15 AM CDT Appointment [facility] [address] [place] [address] Tho Horner, PT [address] [place] [address] 01/15/2025 8:30 AM CDT Appointment [facility] [place] [address] Fam Valadez MD 3 [facility] [address] [place] [address] 01/21/2025 10:00 AM CDT Office Visit [facility] THREE [facility], [address] [place] [address] Fam Valadez MD 3 [facility] [address] [place] [address] 01/22/2025 10:20 AM CDT Office Visit [facility]ialty Care - [facility] [address] [facility], [address] [place] [address] Wilner Rosario MD [address] [place] [address] 03/08/2025 10:00 AM CDT Office Visit [facility] [address] [place] [address] Nicholas Simms MD Three [facility] [address] [place] [address] 05/04/2025 2:00 PM RAWHIDE BONE ROLLER Office Visit [facility] Clinic [address] [address] Ac Connelly MD [address] [facility] [address] [place] [address] documented as of this encounter Visit Diagnoses Not on filedocumented in this encounter Care Teams R Developer Relationship Specialty [place] [address] [place] [address] [place] [address] PCP - General FAMILY PRACTICE 04/01/20 documented as of this encounter
--- OUTSIDE RECORDS SUMMARY | 2025-01-08 14:34 | XMS_ITS | Encounter Summary ---
Author Organization [facility] Address [facility] [place] [address] Care Team Providers Care Woodwind Instruments Inspector Name Role Phone Roxie Meadows MD Primary Care Provider [phone] Encounter Details Date Type Department Care Team (Late st Contact Info) Description 09/22/2024 MyChart Message Enc [facility] Neurology Speciality Clinic - [address] [place] [address] Wilner Rosario MD 3 [place], [place] [id number] update decreasing carbo/Levo Social History Tobacco Use Types Packs/Day Years Used Date Smoking Tobacco: Never Cigarettes 1.5 50 - 01/16/2024 Passive Smoke Exposure: Current Smokeless Tobacco: Never Comments:Proivder to student assistance counselor Alcohol Use Standard Drinks/Week Comments Yes 0 (1 standard drink = 0.6 oz pur e alcohol) rarely PHQ-2 Answer Date Recorded Patient Health Questionnaire-2 Score 0 04/29/2024 Comments No Sex and Gender Information Value Date Recorded Sex Assigned at Female 08/14/2024 5:42 AM SYSTEM ADMINISTRATOR Legal Sex Female 7:58 AM CDT Gender Identity Not on file Sexual Orientation Not on file documented as of this encounter Plan of Treatment Upcoming Encounters Date Type Department Care Team (Late st Contact Info) Description 01/11/2025 10:00 AM CDT Appointment [facility] [address] [place] [address] Tho Horner, PT [address] [place] [address] Stefan Dsouza, PRECISION AIRCRAFT STRUCTURE ASSEMBLER 12[address] [facility] [place] [place] [address] 01/13/2025 9:15 AM CDT Appointment [facility] [address] [place] [address] Tho Horner, PT [address] [place] [address] 01/15/2025 8:30 AM CDT Appointment [facility] [address] [facility] [place] [address] Fam Valadez MD 3 [facility] [address] [place] [address] 01/21/2025 10:00 AM CDT Office Visit [facility] THREE [facility] [address] [place] [address] Fam Valadez MD 3 [facility] [address] [place] [address] 01/22/2025 10:20 AM CDT Office Visit [facility] Mult[facility]pecialty Care - [facility] 3 [facility], [address] [place] [address] Wilner Rosario MD 3 [place] [address] 03/08/2025 10:00 AM CDT Office Visit [facility] [address] [place] [address] Nicholas Simms MD Three [facility] [address] [place] [address] 05/04/2025 2:00 PM SYSTEM ADMINISTRATOR Office Visit [facility] Clinic [address] [address] Ac Connelly MD 3 [facility] [address] [place] [address] documented as of this encounter Visit Diagnoses Not on filedocumented in this encounter Care Teams Woodwind Instruments Inspector Relationship Specialty Start Date End Date Roxie Meadows MD [address] [facility] [place] [place] [address] PCP - General FAMILY PRACTICE 04/01/20 documented as of this encounter
--- OUTSIDE RECORDS SUMMARY | 2025-01-08 14:34 | XMS_ITS | Clinical Summary ---
Author Organization [facility] Address [address] [facility] [address] [place] [address] Phone Care Team Providers Care Linotype Machinist Name Role Phone Roxie Meadows MD Primary Care Provider [phone] Allergies Active Allergy Reactions Criticality Noted Date Comments Gentamicin Swelling 11/11/2018 Eye ointment, made eye red and swollen Iodinated Contrast Media Hives Medium 11/11/2018 Medications lubiprostone (AMITIZA) 24 MCG Capsule Take 24 mcg by mouth 2 times daily. Active Melatonin 10 MG Tablet 10 mg. Active Cholecalciferol 75 MCG (3000 UT) Tablet Take 50 mcg by mouth. Active LORazepam (ATIVAN) 0.5 MG Tablet Take by mouth. 0 Active magnesium hydroxide (MILK OF MAGNESIA) 400 MG/5ML Suspension Take 30 mL by mouth. Active acetaminophen (TYLENOL) 500 MG Tablet Take 1,000 mg by mouth. Active lactulose (CHRONULAC) 10 GM/15ML Solution Take 10 g by mouth. 4 Active zoledronic acid (RECLAST) 5 MG/100ML Solution 5 mg by Intravenous route. Active Mirtazapine (REMERON) 45 MG Tablet Take 45 mg by mouth nightly. Active bisacodyl 10 MG Suppository Active docusate sodium (COLACE) 50 MG Capsule Active carbidopa-levodo pa (SINEMET) 25-100 MG Tablet Take 1.5 Tablets by mouth. Active midodrine (PROAMATINE) 2.5 MG Tablet Take 1 Tablet by mouth 3 times daily. Active Cholecalciferol (Vitamin D3) 2000 UNIT Capsule Take 1 Capsule by mouth daily. Active Active Problems Problem Noted Date Diagnosed Date S/P laparoscopic appendectomy 01/13/2019 Serrated adenoma of colon 01/13/2019 Mass of appendix 12/17/2018 Parkinson disease 12/17/2018 Other constipation 12/17/2018 Family History Medical History Relation Name Comments Cancer Father gastrointestina l, unsure type Cancer Son 1 osteosarcoma No Known Problems Son 2 Relation Name Status Comments Brother 1 Alive Brother 2 Alive Brother 3 Alive Father Mother Sister 1 Alive Sister 2 Son 1 Son 2 Alive Social History Tobacco Use Types Packs/Day Years Used Date Smoking Tobacco: Every Day Cigarettes 1.5 56.2 Started: 11/11/1968 Smokeless Tobacco: Never Tobacco Cessation:Ready to Q uit: Not Asked; Counseling Given: Not Answered Alcohol Use Standard Drinks/Week Comments Yes 0 (1 standard drink = 0.6 oz pur e alcohol) social - 1 beer 2x a month Sexually Active Control Partners Comments Not Currently Male Comments No Sex and Gender Information Value Date Recorded Sex Assigned at Not on file Legal Sex Female 10:27 AM CDT Gender Identity Not on file Sexual Orientation Not on file 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 on file Not on file Last Filed Vital Signs Vital Sign Reading Time Taken Comments Blood Pressure 108/64 09/21/2024 12:59 PM CDT Pulse 78 09/21/2024 12:59 PM CDT Temperature 36.6 C (97.8 F) 09/21/2024 12:59 PM CDT Respiratory Rate 16 09/21/2024 12:5 9 PM CDT Oxygen Saturation 98% 09/21/2024 12: 59 PM CDT Inhaled Oxygen Concentration - - Weight 48.9 kg (107 lb 12.8 oz) 025 12:59 PM CDT Height 162.6 cm (5' 4) 09/21/2024 12:5 9 PM CDT Body Mass Index 18.5 09/21/2024 12:59 PM CDT Plan of Treatment Health Maintenance Due Date Last Done Comments DEXA Bone Density 1950 Hepatitis C Virus (HCV) Screening 1950 Mammogram 1950 TdaP Immunization 1950 Cologuard 1997 Immunochemical Fecal Occult Blood 1997 SARS-COV-2 Immunization ( season) 2024 03/09/2024, 03/21/2023, 03/02/2022, Additional history exists Influenza Immunization (#1) 02/08/202502/10, 03/21/2023, 03/29/2022, Additional history exists Lung Cancer Screening 06/22/2025 06/22/2024 , 01/13/2024, 01/13/2024, Additional history exists Colonoscopy 11/19/2028 11/19/2018 Colorectal Cancer Screening 11/19/2028 Pneumococcal Immunization (50+ years) Completed 03/09/2020, 01/16/2020, 10/07/2018 Pneumococcal Immunization Combined Discontinued 03/09/2020, 01/16/2020, 10/07/2018 Respiratory Syncytial Virus (RSV) Immunization (Adult) Completed 04/13/2023 Zoster Immunization Completed 04/13/2023, Hepatitis B Immunization Aged Out No longer eligible based on patient's age to complete this topic Human Papillomavirus (HPV) Immunization Aged Out No longer eligible based on patient's age to complete this topic Meningococcal Immunization (ACWY) Aged Out No longer eligible based on patient's age to complete this topic Rotavirus Immunization Aged Out No lo nger eligible based on patient's age to complete this topic Insurance [address] [place] [id number] MEDICARE [address] [place] [address] MEDICARE [facility] Advance Directives Documents on File Type Date Recorded Patient Offset Lithographic Press Operator Expl anation Power of Valet for Health Care 02/18/2019 4:20 PM POA FOR HEALTH CARE Care Teams Linotype Machinist Relationship Specialty Start Date End Date Roxie Meadows MD [facility] [place] [address] PCP - General Family Medicine 09/21/24
--- OUTSIDE RECORDS SUMMARY | 2025-01-08 14:34 | XMS_ITS | Encounter Summary ---
Author Organization [facility] Address [facility] [place] [address] Care Team Providers Care Dairy Equipment Installer Name Role Phone Roxie Meadows MD Primary Care Provider [phone] Encounter Details Date Type Department Care Team (Late st Contact Info) Description 09/02/2023 MyChart Message Enc [facility] Medical Group Multispecialty Care - [facility] [address] [facility], [address] [place] [address] Wilner Rosario MD 3 [place] [address] shoulder inhury Social History Tobacco Use Types Packs/Day Years Used Date Smoking Tobacco: Every Day Cigarettes 1.5 50 Passive Smoke Exposure: Current Smokeless Tobacco: Never Alcohol Use Standard Drinks/Week Comments Yes 1.7 (1 standard drink = 0.6 oz p ure alcohol) PHQ-2 Answer Date Recorded Patient Health Questionnaire-2 Score 1 12/20/2022 Comments Unknown Sex and Gender Information Value Date Recorded Sex Assigned at Female 08/14/2024 5:42 AM SURVEY CAD TECHNICIAN Legal Sex Female 7:58 AM CDT Gender Identity Not on file Sexual Orientation Not on file documented as of this encounter Progress Notes * Ama Smith RN - 09/03/2023 7:27 AM CDT Please advise documented in this encounter Plan of Treatment Upcoming Encounters Date Type Department Care Team (Late st Contact Info) Description 01/11/2025 10:00 AM CDT Appointment [facility] [address] [place] [address] Tho Horner, PT [address] [place] [address] Stefan Dsouza, SCHOOL TEACHER [address] [place] [address] 01/13/2025 9:15 AM CDT Appointment [facility] [address] [place] [address] Tho Horner, PT [address] [place] [address] 01/15/2025 8:30 AM CDT Appointment [facility] [place] [address] Fam Valadez MD [address] [facility] [address] [place] [address] 01/21/2025 10:00 AM CDT Office Visit [facility] [address] [facility] [place] [address] [place] [address] Fam Valadez MD [address] [facility] [address] [place] [address] 01/22/2025 10:20 AM CDT Office Visit [facility] Medical Group Multispecialty Care - [facility] [address] [facility], [address] [place] [address] Wilner Rosario MD 3 [place] [address] 03/08/2025 10:00 AM CDT Office Visit [facility] [address] [place] [address] Nicholas iSmms MD [address] [facility] [address] [place] [address] 05/04/2025 2:00 PM SURVEY CAD TECHNICIAN Office Visit [facility] [address] [phone] Ac Connelly MD 3 [facility] [address] [place] [address] documented as of this encounter Visit Diagnoses Not on filedocumented in this encounter Care Teams Dairy Equipment Installer Relationship Specialty Start Date End Date Roxie Meadows MD [address] [facility] [address] PCP - General FAMILY PRACTICE 04/01/20 documented as of this encounter
--- OUTSIDE RECORDS SUMMARY | 2025-01-08 14:34 | XMS_ITS | Clinical Summary ---
Author Organization [facility] Address [facility] [place] [address] Care Team Providers Care Automation Application Engineer Name Role Phone Roxie Meadows MD Primary Care Provider [phone] Allergies Active Allergy Reactions Criticality Noted Date Comments Gentamicin Swelling,Unknown 11/11/2018 Eye ointment, made eye red and swollen Iodinated Contrast Media Other (see comment) High 11/11/2018 Reaction: Hives, Medications melatonin 10 MG tabletIndication s:sleep Take 1 tablet by mouth nightly as needed. Indications: sleep 10/21/19 25 Active acetaminophen (TYLENOL) 500 MG tabletIndication s:pain Take 2 tablets by mouth every 6 (six) hours as needed. Indications: pain 10/21/19 25 Active zoledronic acid (RECLAST) 5 MG/100ML Solution infusionIndicati ons:osteoporosis Inject 100 mLs into the vein once. Indications: osteoporosis Patient takes annually Active bisacodyl EC (DULCOLAX) 5 MG Tab EC tabletIndication s:constipation Take 1 tablet (5 mg total) by mouth nightly as needed. Indications: constipation at bedtime. Active magnesium hydroxide (MILK OF MAGNESIA) 400 MG/5ML suspensionIndica tions:Constipati on Take 30 mLs by mouth daily as needed for Constipation. Indications: Constipation Active lactulose (CHRONULAC) 10 GM/15ML solutionIndicati ons:Constipation Take 15 mLs by mouth 3 (three) times daily. Indications: Constipation 07/25/19 24 Active mirtazapine (REMERON) 45 MG tabletIndication s:Depression Take 1 tablet by mouth. Indications: Depression Active Cholecalciferol (VITAMIN D3) 50 MCG (2000 UT) CapIndications:s upplement Take 2,000 Units by mouth daily. Indications: supplement Active carbidopa-levodo pa (SINEMET) 25-100 MG tabletIndication s:Parkinson's Disease Take 1 tablet by mouth as needed. Indications: Parkinson's Disease Patient takes 1 - 4 tablets daily, as needed. 10/21/19 25 Active carbidopa-levodo pa CR (SINEMET CR) 50-200 MG tabletIndication s:Parkinson's Disease Take 1 tablet by mouth nightly at bedtime. 90 tablet 3 04/06/20 24 Active lubiprostone (AMITIZA) 24 MCG capsuleIndicatio ns:Constipation Take 1 capsule (24 mcg total) by mouth 2 (two) times daily with meals. 180 capsule 3 06/15/19 25 Active LORazepam (ATIVAN) 0.5 MG tablet Take 1 tablet (0.5 mg total) by mouth 3 (three) times daily as needed. 11/28/19 25 Active lidocaine (LIDODERM) 5 % Place 1 patch onto the skin as needed. 11/15/19 25 Active prucalopride (MOTEGRITY) Tab tabletIndication s:Chronic constipation Take 1 tablet (1 mg total) by mouth daily. 30 tablet 11 01/03/20 25 Active midodrine (PROAMATINE) 2.5 MG tabletIndication s:blood pressure [The details of the medication are not available because there are pending changes by a home health clinician.] 270 tablet 1 03/26/20 24 025 Discontin ued(Cruz campos completed ) Active Problems Problem Noted Date Diagnosed Date S/P deep brain stimulator placement 02/03/2024 Serum calcium elevated 11/01/2023 Aortic aneurysm 01/03/2023 Dystonia, unspecified 12/20/2022 Orthostatic hypotension 08/16/2021 Osteoporosis 08/04/2020 Radial styloid tenosynovitis 03/27/2019 REM sleep behavior disorder 03/27/2019 S/P laparoscopic appendectomy 01/13/2019 Serrated adenoma of colon 01/13/2019 Mass of appendix 12/17/2018 Anxiety disorder 03/19/2018 Disturbance in sleep behavior 03/19/2018 Keratosis, senilis 04/19/2017 Overview (01/03/2023): Description: Reassured Parkinson's disease ([facility]) 03/13/2017 Overview (11/01/2023): Last Assessment & Plan: She has relatively mild stage 2 PD [...] and PRN bisacodyl. -continue mirtazapine 30mg nightly - continue melatonin 10mg nightly for RBD -Encouraged regular exercise. - encourage lots of fluid and salt intake. - elevate head of the bed 4-6 inches on cinder blocks to help reduce orthostasis. - continue caffeine as she is for treating orthostasis. Last Assessment & Plan: She has relatively mild stage 2 PD [...] and PRN bisacodyl. -continue mirtazapine 30mg nightly - continue melatonin 10mg nightly for RBD -Encouraged regular exercise. - encourage lots of fluid and salt intake. - elevate head of the bed 4-6 inches on cinder blocks to help reduce orthostasis. - continue caffeine as she is for treating orthostasis. Last Assessment & Plan: She has relatively mild stage 2 PD [...] twice daily if needed). Continue docusate and PRBerna bisacodyl. -continue mirtazapine 30mg nightly -continue melatonin 10mg nightly for RBD -Encouraged regular exercise. - encourage lots of fluid and salt intake. - elevate head of the bed 4-6 inches on cinder blocks to help reduce orthostasis. - continue caffeine as she is for treating orthostasis. 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 03/13/2017 Encounters Date Type Department Care Team Description 01/07/2025 7:43 AM CDT Hospital Encounter [facility] [address] [place] [address] Tho Horner, PT Wilner Rosario MD Parkinson's Disease 01/07/2025 Travel 01/04/2025 8:30 AM CDT - 01/04/2025 11:59 PM CDT Hospital Encounter [facility] [address] [place] [address] Tho Horner, PT Parkinson's Disease Discharge Disposition: Home or Self Care (Routine Discharge) 01/04/2025 Travel 12/31/2024 MyChart Message Enc [facility] Multispecialty Care - [address], [address] [place] [address] Wilner Rosario MD Motegrity 12/23/2024 MyChart Message Enc [facility] Multispecialty Care - [address], [address] [place] [phone] Wilner Rosario MD referral request 12/10/2024 12:00 PM CDT Office Visit [facility]rology Speciality [facility] - [place] [address] [facility] [address] [place] [address] Wilner Rosario MD Parkinson's Disease (DBS) 12/10/2024 Scan ScaleArc INFO SRVCS Scanned, Doc [facility] MRI (SCAN) 12/10/2024 Travel 11/13/2024 MyChart Message Enc [facility] - [place] [phone] [facility] [address] [place] [phone] Wilner Rosario MD RE: referral to Dr Cabrera 11/08/2024 MyChart Message Enc [facility] - [place] [address] [facility] [address] [place] [phone] Wilner Rosario MD Info you requested 11/03/2024 Telephone [facility] Neurology Speciality [facility] - [place] [address] [facility] [address] [place] [phone] Wilner Rosario MD Billing Issue 10/29/2024 9:30 AM CDT Home Care Visit [place] [address] [place] [address] Karley Stringer, RN SN OASIS DISCHARGE/ASSESSMENT 10/29/2024 Home Care Visit [place] [address] [place] [address] Karley Stringer, RN [facility] [place] 10/21/2024 12:00 PM CDT Home Care Visit [place] [address] [place] [address] Diamond Diaz, PT PT INITIAL EVALUATION 10/20/2024 9:30 AM CDT Home Care Visit [place] [address] [place] [address] Diamond Wood, RN SN OASIS START OF CARE 10/20/2024 Plan of Care Documentation [place] [address] [place] [address] 10/20/2024 Telephone [facility] Multispecialty [facility] - [address], [address] [place] [phone] Wilner Rosario MD Information 10/08/2024 11:00 AM CDT Office Visit [facility] Medical Group Neurology Speciality Clinic - [address] [place] [address] Wilner Rosario MD Tremors (DBS F/U/) 10/08/2024 Telephone [facility] Home Care [facility] [address] [place] [address] Wilner Rosario MD Orders 10/08/2024 Telephone [facility] Home Care [facility] [address] [place] [address] Wilner Rosario MD Medication 10/08/2024 Travel from Last 3 Months Family History Medical History Relation Comments Cancer Brother Alcohol Abuse Father Cancer Father Arthritis Mother Diabetes Mother Miscarriages / Stillbirths Mother Cancer Son Early Son Relation Status Comments Brother Alive Father Alive Mother (Age 90) Son Social History Tobacco Use Types Packs/Day Years Used Date Smoking Tobacco: Never Cigarettes 1.5 50 - 01/16/2024 Passive Smoke Exposure: Current Smokeless Tobacco: Never Tobacco Cessation:Counseling Given: Yes Comments:Proivder to counseling department chair Alcohol Use Standard Drinks/Week Comments Yes 0 [...] Sex Assigned at Female 08/14/2024 5:42 AM HEATING OPERATORS ENGINEER Legal Sex Female 7:58 AM CDT Gender Identity Not on file Sexual Orientation Not on file Last Filed Vital Signs Vital Sign Reading Time Taken Comments Blood Pressure 128/72 12/10/2024 11:49 AM CDT Pulse 84 12/10/2024 11:49 AM CDT Temperature 36.6 C (97.9 F) 12/10/2024 11:49 AM CDT Respiratory Rate 16 12/10/2024 11:49 AM CDT Oxygen Saturation 99% 12/10/2024 11:49 AM CDT Inhaled Oxygen Concentration - - Weight 46.7 kg (103 lb) 12/10/2024 11:49 AM CDT Height 162.6 cm (5' 4) 12/10/2024 11:49 AM CDT Body Mass Index 17.68 12/10/2024 11:49 AM CDT Plan of Treatment Upcoming Encounters Date Type Department Care Team (Late st Contact Info) Description 01/11/2025 10:00 AM CDT Appointment [facility] [address] [place] [address] Tho Horner, PT [address] [place] [address] Stefan Dsouza, SUGAR CANE PLANTER MACHINE OPERATOR [address] [facility] [place] [address] 01/13/2025 9:15 AM CDT Appointment [facility] [address] [place] [address] Tho Horner, PT [address] [place] [address] 01/15/2025 8:30 AM CDT Appointment [place] [address] Dean Valadez MD 3 [facility] [address] [place] [address] 01/21/2025 10:00 AM CDT [facility], [address] [address] Dean Valadez MD 3 [facility] [address] [place] [address] 01/22/2025 10:20 AM CDT Office Visit [facility] Multispecialty Care - [facility] [address] [facility], [address] [place] [address] Wilner Rosario MD 3 [facility] [place] [address] 03/08/2025 10:00 AM CDT Office Visit [facility] [address] [place] [address] Nicholas Simms MD Three [facility] [address] [place] [address] 05/04/2025 2:00 PM HEATING OPERATORS ENGINEER Office Visit [facility]ology Specialty Clinic [address] [phone] Ac Connelly MD 3 [facility] [address] [place] [address] Health Maintenance Due Date Last Done Comments ASCVD LDL 1952 ASCVD Statin 1950 Colorectal Cancer Screening Colonoscopy (10 Years) 1952 Hepatitis C 1970 DTaP, Tdap and Td Vaccines (1 - Tdap) 1971 Mammogram Screening 1992 Annual Medicare Wellness Visit 2017 Dexa Scan (General) 2017 COVID-19 Vaccine ( season) 2024 03/21/2023, 03/02/2022, 10/06/2021, Additional history exists PHQ-2 (Physician [place]) 06/10/2024 04/29/2024 Lung Cancer Screening 01/12/2025 01/13/2024 , 06/14/2023, 11/16/2022 Pneumococcal Vaccine: 50+ Years Completed 03/09/2020, 01/16/2020, 10/07/2018 RSV Immunization or 60+ Years Completed 04/13/2023 Zoster Vaccines Completed 04/13/2023, 02/10/2023 Meningococcal B Vaccine Aged Out No l onger eligible based on patient's age to complete this topic Meningococcal Vaccine Aged Out No ashley misha eligible based on patient's age to complete this topic RSV Immunizations Under 20 Months Aged Out No longer eligible based on patient's age to complete this topic Procedures Procedure Name Priority Date/Time Associated Diagnosis Comments MRI GENERIC 12/10/2024 CT CHEST WO CON Routine 01/13/2024 1:02 PM CDT Aneurysm of ascending aorta without rupture from Last 3 Months or Most Recently Relevant to Health Maintenance Results * MRI GENERIC (12/10/2024) Anatomical Region Laterality Modality Other 12/10/2024 [facility] Scanned SCANNING Final Resu lt * CT CHEST WO CON (01/13/2024 1:02 PM CDT) Anatomical Region Laterality Modality Chest Computed Tomogra phy 01/16/2024 8:37 AM CDT Impressions 01/16/2024 8:57 AM CDT IMPRESSION: 1. Stable ascending aortic aneurysm measuring 4 cm. 2. Aortic root evaluation is very difficult without contrast, sinuses of Valsalva level measures approximately up to 3.7 cm. 3. Mild emphysema. 4. Atherosclerosis and coronary calcifications. 5. 5 mm groundglass nodule right middle lobe, stable. No specific follow-up necessary. 6. Leaflet and annulus calcifications of the aortic valve. Correlation for signs of aortic stenosis recommended. 7. Devan Society criteria utilized. Referred By: DEAN VALADEZ Interpreted By: Alberto Magallanes MD, 01/16/2024 8:37 AM Narrative 01/16/2024 8:57 AM CDT EXAMINATION: CT CHEST WITHOUT CONTRAST EXAM DATE/TIME: 01/13/2024 12:40 PM REASON FOR EXAM: Aortic aneurysm COMPARISON: 06/14/2023 TECHNIQUE: Computed tomography was performed of the chest without intravenous contrast. Dose lowering technique was used for this study which may include, but is not limited to, dose reduction techniques, automated exposure control, use of iterative reconstruction and ALARA (As low As Reasonably Achievable)/Image Gently techniques. FINDINGS: Aorta measurements: Sinuses of Valsalva level: Cusp to commissure measurements very difficult without contrast, but are estimated at 3.4 cm, 3.2 cm, 3.7 cm. Widest coronal oblique: 3.6 cm. Sinotubular junction: 3.4 x 3.6 cm. Midportion ascending aortic aneurysm: 4.0 x 4.0 cm. Aortic arch: 3.3 x 3.5 cm. Descending thoracic aorta: 2.7 x 2.7 cm. Atherosclerosis, coronary calcifications. Leaflet and annulus calcifications of the aortic valve. Correlation for signs of aortic stenosis recommended. Mild upper lobe predominant centrilobular emphysema. 5 mm groundglass nodule right middle lobe axial image 63, stable. No pneumothorax or pleural effusions. Airways within normal limits. On soft tissue windows, no axillary or supraclavicular lymphadenopathy. On mediastinal windows, no evidence of hilar or mediastinal lymphadenopathy. Heart size normal. No pericardial effusion. Atherosclerosis and coronary calcifications. Trace pericardial effusion. Limited evaluation of the upper abdomen demonstrates no acute abnormality. On bone windows, no suspicious skeletal lesion or acute compression fracture deformity. Scattered degenerative changes of the spine. Procedure Note Alberto Magallanes MD - 01/16/2024 EXAMINATION: CT CHEST WITHOUT CONTRAST EXAM DATE/TIME: 01/13/2024 12:40 PM REASON FOR EXAM: Aortic aneurysm COMPARISON: 06/14/2023 TECHNIQUE: Computed tomography was performed of the chest withoutintravenous contrast. Dose lowering technique was used for this study which may include, but isnot limited to, dose reduction techniques, automated exposure control, use of iterativereconstruction and ALARA (As low As Reasonably Achievable)/Image Gently techniques. FINDINGS: Aorta measurements: Sinuses of Valsalva level: Cusp to commissure measurements very difficult without contrast, but areestimated at 3.4 cm, 3.2 cm, 3.7 cm. Widest coronal oblique: 3.6 cm. Sinotubular junction: 3.4 x 3.6 cm. Midportion ascending aortic aneurysm: 4.0 x 4.0 cm. Aortic arch: 3.3 x 3.5 cm. Descending thoracic aorta: 2.7 x 2.7 cm. Atherosclerosis, coronary calcifications. Leaflet and annulus calcifications of the aortic valve. Correlation forsigns of aortic stenosis recommended. Mild upper lobe predominant centrilobular emphysema. 5 mm groundglass nodule right middle lobe axial image 63, stable. No pneumothorax or pleural effusions. Airways within normal limits. On soft tissue windows, no axillary or supraclavicular lymphadenopathy. On mediastinal windows, no evidence of hilar or mediastinallymphadenopathy. Heart size normal. No pericardial effusion. Atherosclerosis and coronary calcifications. Trace pericardial effusion. Limited evaluation of the upper abdomen demonstrates no acuteabnormality. On bone windows, no suspicious skeletal lesion or acute compressionfracture deformity. Scattered degenerative changes of the spine. IMPRESSION: 1. Stable ascending aortic aneurysm measuring 4 cm. 2. Aortic root evaluation is very difficult without contrast, sinuses ofValsalva level measures approximately up to 3.7 cm. 3. Mild emphysema. 4. Atherosclerosis and coronary calcifications. 5. 5 mm groundglass nodule right middle lobe, stable. No specificfollow-up necessary. 6. Leaflet and annulus calcifications of the aortic valve. Correlationfor signs of aortic stenosis recommended. 7. Devan Society criteria utilized. Referred By: DEAN VALADEZ Interpreted By: Alberto Magallanes MD, 01/16/2024 8:37 AM Dean Valadez MD CT Final Result from Last 3 Months or Most Recently Relevant to Health Maintenance Insurance MEDICARE [facility] Advance Directives * Full Code (Latest Code Status on File) Date Activated Date Inactivated Comments 10/20/2024 1:26 PM Care Teams Automation Application Engineer Relationship Specialty Start Date End Date Roxie Meadows MD [address] [facility] [place] [address] PCP - General FAMILY PRACTICE 04/01/20
--- OUTSIDE RECORDS SUMMARY | 2025-01-08 14:34 | XMS_ITS | Encounter Summary ---
Author Organization [facility] Address [address] [place] [address] Phone Care Team Providers Care Sports Management Internship Name Role Phone Roxie Meadows MD Primary Care Provider [phone] Encounter Details Date Type Department Care Team (Late st Contact Info) Description 09/07/2024 Telephone [facility] [address] [address] Sebastian Chan MD [address] [place] [phone] Social History Tobacco Use Types Packs/Day Years Used Date Smoking Tobacco: Every Day Cigarettes 1.5 56.2 Started: 11/11/1966 Smokeless Tobacco: Never Alcohol Use Standard Drinks/Week Comments Yes 0 [...] file Not on file Not on file documented as of this encounter Plan of Treatment Not on file documented as of this encounter Visit Diagnoses Not on filedocumented in this encounter Care Teams Sports Management Internship Relationship Specialty Start Date End Date Roxie Meadows MD [address] [place] [address] PCP - General Family Medicine 09/21/24 documented as of this encounter
--- OUTSIDE RECORDS SUMMARY | 2025-01-08 14:34 | XMS_ITS | Encounter Summary ---
Author Organization [facility] Address [facility] [place] [address] Care Team Providers Care Pattern Grader Name Role Phone Roxie Meadows MD Primary Care Provider [phone] Encounter Details Date Type Department Care Team (Late st Contact Info) Description 06/07/2023 MyChart Message Enc [facility] Multispecialty Care - [facility] 3 [facility], [address] [place] [address] Wilner Rosario MD 3 [place] [address] dyskinesia Social History Tobacco Use Types Packs/Day Years [...] Sex Assigned at Female 08/14/2024 5:42 AM STUDIO GRIP Legal Sex Female 7:58 AM CDT Gender Identity Not on file Sexual Orientation Not on file documented as of this encounter Plan of Treatment Upcoming Encounters Date Type Department Care Team (Late st Contact Info) Description 01/11/2025 10:00 AM CDT Appointment [facility] 5 [place] [address] Tho Horner, PT 725 [place] [address] Stefan Dsouza, DIRECTOR OF CATH LAB [address] [place] [address] 01/13/2025 9:15 AM CDT Appointment [facility] 725 [place] [address] Tho Horner, PT 725 [place] [address] 01/15/2025 8:30 AM CDT Appointment [facility] [address] [facility] [place] [address] Fam Valadez MD 3 [facility] [address] [place] [address] 01/21/2025 10:00 AM CDT Office Visit [facility] THREE [facility] [place] [address] [place] [address] Fam Valadez MD 3 [facility] [address] [place] [address] 01/22/2025 10:20 AM CDT Office Visit [facility]ial[facility] Care - [facility] 3 [facility], [address] [place] [address] Wilner Rosario MD 3 [place] [address] 03/08/2025 10:00 AM CDT Office Visit [facility] [address] [place] [address] Nicholas Simms MD Three [facility] [address] [place] [address] 05/04/2025 2:00 PM STUDIO GRIP Office Visit [facility] [address] [address] Ac Connelly MD 3 [facility] [address] [place] [address] documented as of this encounter Visit Diagnoses Not on filedocumented in this encounter Care Teams Pattern Grader Relationship Specialty Start Date End Date Roxie Meadows MD [address] [facility] [place] [address] PCP - General FAMILY PRACTICE 04/01/20 documented as of this encounter
--- OUTSIDE RECORDS SUMMARY | 2025-01-08 14:34 | XMS_ITS | Encounter Summary ---
Author Organization [facility] Address [facility] [place] [address] Care Team Providers Care Marketing Communications Specialist Name Role Phone Roxie Meadows MD Primary Care Provider [phone] Encounter Details Date Type Department Care Team (Late st Contact Info) Description 08/31/2024 [place] Wi Max Message Enc [facility] THREE [facility], [facility] [address] [place], [place] [id number] Chantell Laguna, ANP-BC Three [facility]. [facility] [address] [place], [place] [id number] Test Results Social History Tobacco Use Types Packs/Day Years Used Date Smoking Tobacco: Never Cigarettes 1.5 50 - 01/16/2024 Passive Smoke Exposure: Current Smokeless Tobacco: Never Comments:Proivder to delinquency counselor Alcohol Use Standard Drinks/Week Comments Yes 0 (1 standard drink = 0.6 oz pur e alcohol) rarely PHQ-2 Answer Date Recorded Patient Health Questionnaire-2 Score 0 04/29/2024 Comments No Sex and Gender Information Value Date Recorded Sex Assigned at Female 08/14/2024 5:42 AM DIRECTOR OF PHOTOGRAPHY Legal Sex Female 7:58 AM CDT Gender Identity Not on file Sexual Orientation Not on file documented as of this encounter Plan of Treatment Upcoming Encounters Date Type Department Care Team (Late st Contact Info) Description 01/11/2025 10:00 AM CDT Appointment [facility] 5 [place] [address] Tho Horner, PT 725 [place] [address] Stefan Dsouza, TANK MAKER WOOD [address] [facility] [place] [address] 01/13/2025 9:15 AM CDT Appointment [facility] 725 [place] [address] Tho Horner, PT [address] [place] [address] 01/15/2025 8:30 AM CDT Appointment [facility] CT ONE [facility] [place] [address] Fam Valadez MD 3 [facility] [address] [place] [address] 01/21/2025 10:00 AM CDT Office Visit [facility] THREE [facility] [place] [address] [place] [address] Fam Valadez MD 3 [facility] [address] [place] [address] 01/22/2025 10:20 AM CDT Office Visit [facility] Mult[facility]pecialty Care - [facility] 3 [facility], [address] [place] [address] Wilner Rosario MD 3 [place] [address] 03/08/2025 10:00 AM CDT Office Visit [facility] [address] [place] [address] Nicholas Simms MD Three [facility]., [address] [place] [address] 05/04/2025 2:00 PM DIRECTOR OF PHOTOGRAPHY Office Visit [facility] [address] [phone] Ac Connelly MD 3 [facility] [address] [place] [address] documented as of this encounter Visit Diagnoses Not on filedocumented in this encounter Care Teams Marketing Communications Specialist Relationship Specialty Start Date End Date Roxie Meadows MD [address] [facility] [place] [address] PCP - General FAMILY PRACTICE 04/01/20 documented as of this encounter
--- OUTSIDE RECORDS SUMMARY | 2025-01-08 14:34 | XMS_ITS | Continuity of Care Document ---
Author Organization [facility] Address [address] [place] [address] Phone Care Team Providers Care Supervisor Pile Driving Name Role Phone Chang Huntley Unavailable Unavailable Procedures Procedure Date Office/outpatient Visit, Est Advance Directives Directive Yes / No Effective Date File Name No Information Encounters Encounter Description Practice Location Reason(s) For Visit Diagnoses Date Provider Providers Copied on Encounter Office/outpat ient Visit, Est [facility], [address], [place], [place], [id number], [place] tel:[phone] [facility] No Information [address]. [address] [facility] [address], [place], [address], [place]. tel:[phone] Referring Provider: Niko Hopkins, [address], [place], [address]. tel:[phone] Family History Family Member Type Diagnosis Age At Onset No Information Payers Payer name Insurance type Covered republican ID Authoriza tion(s) No Information Social History [...]
--- OUTSIDE RECORDS SUMMARY | 2025-01-08 14:34 | XMS_ITS | Encounter Summary ---
Author Organization [place] Address [facility] [place] [address] Care Team Providers Care Surface Water Technician Name Role Phone Roxie Meadows MD Primary Care Provider [phone] Encounter Details Date Type Department Care Team (Latest Contact Info) Description 11/22/2023 [place] Therapeuticst Message Enc [facility] [address] [address] Ac Connelly MD [address] [place] [address] Medication change request Social History Tobacco Use Types Packs/Day Years Used Date Smoking Tobacco: Every Day Cigarettes 1.5 50 Passive Smoke Exposure: Current Smokeless Tobacco: Never Comments:Proivder to world travel counselor Alcohol Use Standard Drinks/Week Comments Yes 1.7 (1 standard drink = 0.6 oz p ure alcohol) PHQ-2 Answer Date Recorded Patient Health Questionnaire-2 Score 0 11/01/2023 Comments No Sex and Gender Information Value Date Recorded Sex Assigned at Female 08/14/2024 5:42 AM PARTS CLERK Legal Sex Female 7:58 AM CDT Gender Identity Not on file Sexual Orientation Not on file documented as of this encounter Plan of Treatment Upcoming Encounters Date Type Department Care Team (Late st Contact Info) Description 01/11/2025 10:00 AM CDT Appointment [facility] 725 [place] [address] Tho Horner M, PT 725 [place] [address] Stefan Dsouza, DIRECTOR SURFACE TRANSPORTATION [address] [facility] [place] [place] [address] 01/13/2025 9:15 AM CDT Appointment [facility] 7[address] [place] [address] Tho Horner, PT 725 [place] [address] 01/15/2025 8:[address] [facility] CT ONE [facility] [place] [address] Fam Valadez MD 3 [facility] [address] [place] [address] 01/21/2025 10:00 AM CDT Office Visit [facility] [address] [place] [address] [place] [address] Fam Valadez MD [address] [facility] [address] [place] [address] 01/22/2025 10:20 AM CDT Office Visit [facility] Mult[facility]pecialty Care - [facility] [address] [place] [address] Wilner Rosario MD [address] [facility] [place] [address] 03/08/2025 10:00 AM CDT Office Visit [facility] [address] [place] [address] Nicholas Simms MD Three [facility] [address] [place] [address] 05/04/2025 2:00 PM PARTS CLERK Office Visit [facility] [address] [address] Ac Connelly MD 3 [facility] [address] [place] [address] documented as of this encounter Visit Diagnoses Not on filedocumented in this encounter Care Teams Surface Water Technician Relationship Specialty Start Date End Date Roxie Meadows MD [address] [facility] [place] [place] [address] PCP - General FAMILY PRACTICE 04/01/20 documented as of this encounter
--- OUTSIDE RECORDS SUMMARY | 2025-01-08 14:34 | XMS_ITS | Encounter Summary ---
Author Organization [facility] Address [facility] [place] [address] Care Team Providers Care Leathersmith Name Role Phone Roxie Meadows MD Primary Care Provider [phone] Encounter Details Date Type Department Care Team (Late st Contact Info) Description 07/28/2024 MyChart Message Enc [facility] Neurology Speciality Clinic - [address] [place] [address] Wilner Rosario MD 3 [place] [address] Documents/Mary Social History Tobacco Use Types Packs/Day Years Used Date Smoking Tobacco: Never Cigarettes 1.5 50 - 01/16/2024 Passive Smoke Exposure: Current Smokeless Tobacco: Never Comments:Proivder to behavioral school counselors Alcohol Use Standard Drinks/Week Comments Yes 0 (1 standard drink = 0.6 oz pur e alcohol) rarely PHQ-2 Answer Date Recorded Patient Health Questionnaire-2 Score 0 04/29/2024 Comments No Sex and Gender Information Value Date Recorded Sex Assigned at Female 08/14/2024 5:42 AM CAR CONSTRUCTION SUPERINTENDENT Legal Sex Female 7:58 AM CDT Gender Identity Not on file Sexual Orientation Not on file documented as of this encounter Plan of Treatment Upcoming Encounters Date Type Department Care Team (Late st Contact Info) Description 01/11/2025 10:00 AM CDT Appointment [facility] 5 [place] [address] Tho Horner, PT 725 [place] [address] Stefan Dsouza, RELIGIOUS EDUCATION DIRECTOR [address] [facility] [place] [address] 01/13/2025 9:15 AM CDT Appointment [facility] 725 [place] [address] Tho Horner, PT 725 [place] [address] 01/15/2025 8:30 AM CDT Appointment [facility] CT [facility] [place] [address] Fam Valadez MD 3 [facility] [address] [place] [address] 01/21/2025 10:00 AM CDT Office Visit [facility] THREE [facility] [place] [address] [place] [address] Fam Valadez MD 3 [facility] [address] [place] [address] 01/22/2025 10:20 AM CDT Office Visit [facility] Multispecialty Care - [facility] 3 [facility], [address] [place] [address] Wilner Rosario MD 3 [place] [address] 03/08/2025 10:00 AM CDT Office Visit [facility] [address] [place] [address] Nicholas Simms MD Three [facility] [address] [place] [address] 05/04/2025 2:00 PM CAR CONSTRUCTION SUPERINTENDENT Office Visit [facility] [address] [phone] Ac Connelly MD 3 [facility] [address] [place] [address] documented as of this encounter Visit Diagnoses Not on filedocumented in this encounter Care Teams Leathersmith Relationship Specialty Start Date End Date Rxoie Meadows MD [address] [facility] [place] [address] PCP - General FAMILY PRACTICE 04/01/20 documented as of this encounter
--- OUTSIDE RECORDS SUMMARY | 2025-01-08 14:34 | XMS_ITS | Clinical Summary ---
Author Organization [facility] Address [address] [facility] [address] [place] [address] Care Team Providers Care Felt Finishing Supervisor Name Role Phone Roxie Meadows MD Primary Care Provider [phone] Source Comments [facility],non-owned Affiliates and Associated Physician Practices is amultiple site organization consisting of ambulatory clinics and hospital sitesin [place], [place], [place] and [place]. This disclosure is being madepursuant to the Care Everywhere program and may not contain all information available regarding this patient. Last updated 18.[facility] Allergies Active Allergy Reactions Criticality Noted Date Comments Contrast-Iodinated Agents Fo r Ct/Other Urticaria High 06/18/1998 Gentamicin Swelling,Eye Redness Medium 06/18/1998 Medications * This document contains information received from the source organization and may not represent a complete record from that organization. * Be aware that medications may not be up to date on this document. Alwaysverify current medications with the patient. Cholecalciferol (Vitamin D) 50 MCG (1999) capsule Take 1 (one) capsule by mouth once daily Active carbidopa-levod opa CR (Sinemet CR) 50-200 MG tablet Take 1 (one) tablet by mouth at bedtime 7 Active LORazepam (Ativan) 0.5 MG tablet Take 1 (one) tablet by mouth 3 times daily as needed 7 Active lactulose (Chronulac) 10 GM/15ML solution TAKE 15ML BY MOUTH TWICE A DAY 4 Active Melatonin 10 MG 10 (ten) mg Ac tive docusate sodium (Colace) 50 MG capsule Active acetaminophen (Tylenol) 500 MG tablet Take 2 (two) tablets by mouth Active zoledronic acid (Reclast) 5 MG/100ML infusionIndicat ions:Osteoporos is 100 mL by Intravenous route once Annually for osteoporosis Reasons: Osteoporosis Active bisacodyl (bisacodyl LAXATIVE) 10 MG suppository Active magnesium hydroxide (Milk Of Magnesia) 400 MG/5ML suspension Take 30 mL by mouth Active carbidopa-levod opa (Sinemet) 25-100 MG tablet Take 1.5 (one and one-half) tablets by mouth 3 times daily Active mirtazapine (Remeron) 45 MG tablet Take 1 (one) tablet by mouth at bedtime Active lubiprostone (Amitiza) 24 MCG capsule Take 1 (one) capsule by mouth 2 times daily with morning and evening meal 5 Active Active Problems Problem Noted Date Diagnosed Date Parkinson's disease, unspeci fied whether dyskinesia present, unspecified whether manifestations fluctuate 02/03/2024 S/P deep brain stimulator placement 02/03/2024 Aortic aneurysm 01/03/2023 Dystonia, unspecified 12/20/2022 Osteoporosis 08/04/2020 Anxiety disorder 03/19/2018 Parkinson's disease 03/13/2017 Overview (10/29/2023): Last Assessment & Plan: She has relatively [...] caffeine as she is for treating orthostasis. Social History Tobacco Use Types Packs/Day Years Used Date Smoking Tobacco: Former Cigarettes 1.5 50 0 12/30/1973 - 12/31/2023 Smokeless Tobacco: Never Tobacco Cessation:Counseling Given: Not Answered Alcohol Use Standard Drinks/Week Comments Yes 0 (1 standard drink = 0.6 oz pur e alcohol) very rarely AUDIT-C Answer Date Recorded Q1: How often do you have a drink containing alcohol? Never 02/03/2024 Q2: How many drinks containi ng alcohol do you have on a typical day when you are drinking? Patient does not drink Q3: How often do you have si x or more drinks on one occasion? Never 02/03/2024 Overall Financial Resource Strain (CARDIA) Answe r Date Recorded How hard is it for you to pa y for the very basics like food, housing, medical care, and heating? Not hard at all 02/03/2024 [facility] [place] of Occupat ional Health - Occupational Stress Questionnaire Answer Date Recorded Do you feel stress - tense, restless, nervous, or anxious, or unable to sleep at night because your mind is troubled all the time - these days? Only a little 02/03/2024 Hunger Vital Sign Answer Date Recorded Within the past 12 months, y ou worried that your food would run out before you got the money to buy more. Never true 02/03/20 24 Within the past 12 months, t he food you bought just didn't last and you didn't have money to get more. Never true 02/03/2024 PRAPARE - Transportation Answer Date Re corded In the past 12 months, has l ack of transportation kept you from medical appointments or from getting medications? No 01/09 In the past 12 months, has l ack of transportation kept you from meetings, work, or from getting things needed for daily living? No 02/03/2024 Housing Stability Vital Sign Answer Don e Recorded In the last 12 months, was t here a time when you were not able to pay the mortgage or rent on time? No 02/03/2024 In the last 12 months, how many places have you lived? 1 02/03/2024 In the last 12 months, was t here a time when you did not have a steady place to sleep or slept in a correction (including now)? No 02/03/2024 Comments No Sex and Gender Information Value Date Recorded Sex Assigned at Not on file Legal Sex Female 10:43 AM CDT Gender Identity Not on file Sexual Orientation Not on file Last Filed Vital Signs Vital Sign Reading Time Taken Comments Blood Pressure 117/66 07/15/2024 7:58 AM ALTERATION SPECIALIST Pulse 95 07/15/2024 7:58 AM ALTERATION SPECIALIST Temperature 37.1 C (98.7 F) 06/18/2024 10:06 AM ALTERATION SPECIALIST Respiratory Rate 18 06/18/2024 10:06 AM ALTERATION SPECIALIST Oxygen Saturation 100% 07/15/2024 7:58 AM ALTERATION SPECIALIST Inhaled Oxygen Concentration - - Weight 50.4 kg (111 lb 3.2 oz) 07/15/2024 7:58 A M ALTERATION SPECIALIST Height 162.6 cm (5' 4) 07/15/2024 7:58 AM ALTERATION SPECIALIST Body Mass Index 19.09 07/15/2024 7:58 AM ALTERATION SPECIALIST Plan of Treatment Health Maintenance Due Date Last Done Comments BONE DENSITY TESTING 1950 COLOGUARD (AGES 45-75) - COLON CA SCREENING 1952 COLON MONITORING 1952 COLONOSCOPY - COLON CA SCREENING 1952 CT COLONOGRAPHY - COLON CA SCREENING 1952 Colorectal Cancer Screening 1952 FIT - COLON CA SCREENING 1952 FLEX SIG - COLON CA SCREENING 1952 LIPID TESTING 1952 MAMMOGRAM 1952 MEDICARE AWV 12 MONTHS 1952 HEPATITIS C SCREENING 03/16/1970 DTAP/TDAP/TD VACCINES (1 - Tdap) 1971 LUNG CANCER SCREENING 2002 PNEUMOCOCCAL VACCINE 50+ (1 of 1 - PCV) 2002 ZOSTER VACCINE (1 of 2) 2002 Respiratory Syncytial Virus (RSV) Vaccine Pt: or over 60 yrs (1 - Risk 60-74 years 1-dose series) 2012 COVID-19 VACCINE ( season) 2024 03/02/2022, 10/06/2021, 04/10/2021, Additional history exists DEPRESSION SCREENING 06/10/2024 INFLUENZA VACCINE (#1) 2025 9, 04/09/2018, 04/06/2018, Additional history exists HEPATITIS B VACCINE Aged Out No longe r eligible based on patient's age to complete this topic HIB VACCINE Aged Out No longer eligi ble based on patient's age to complete this topic HPV VACCINE Aged Out No longer eligi ble based on patient's age to complete this topic MENINGOCOCCAL (Group B) VACCINE SHARED DECISION-MAKING Aged Out No longer eligible based on patient's age to complete this topic MENINGOCOCCAL GROUPS A/C/Y/W VACCINE Aged Out No longer eligible based on patient's age to complete this topic Medical Devices Implanted Type Area Bi Solutions Architect Device Identifier Shelf Expiration Date Model / Serial / Lot Vercise Cartesia Directional Lead Kit 45 Cm 8 Contact Dbs Implanted:Qty: 1 on 02/03/2024 by Marcellus Root MD at [facility] Left: Cranial [employer] Neuro 12/02/2025 [id number] / [id number] / N/A Kit Nrstm Dbs Bur Hl Plg Strl Implanted:Qty: 1 on 02/03/2024 by Marcellus Root MD at [facility] Left: Cranial [employer] Scimed [id number] / / [id number] Aren Kit Pls Gntr Vercise Genus R16 - [id number] Implanted:Qty: 1 on 02/12/2024 by Marcellus Root MD at [facility] Left: Chest [employer] Adalberto 09/18/2025 [id number] BILL ONLY / [id number] / [id number] Kit Nrstm 55cm Ld Xtn 8 Cntct Implanted:Qty: 1 on 02/12/2024 by Marcellus Root MD at [facility] Left: Neck [employer] Scimed [id number] / / Explanted Type Area Bi Solutions Architect Device Identifier Shelf Expiration Date Model / Serial / Lot Wire K 1.6mm 229mm 2 End Troc Pnt Sty 1 - Sn/A Explanted:Qty: 1 on 02/03/2024 at [facility] [employer] 08/22/2031 [id number] / N/A / [id number] Nrstm Impl Bst Sci Or Cbl Pshbtn 8 Cntct Explanted:Qty: 1 on 02/03/2024 at [facility] Left: Cranial [employer] Neuro [id number] / / Insurance [facility] MEDICARE [facility] MEDICARE [facility] [address] Advance Directives * Full Code (Latest Code Status on File) Date Activated Date Inactivated Comments 02/03/2024 12:51 PM 02/04/2024 11:50 AM Care Teams Felt Finishing Supervisor Relationship Specialty Start Date End Date Roxie Meadows MD [address] [place] [address] [place] [address] PCP - General Family Medicine 09/11/23
--- OUTSIDE RECORDS SUMMARY | 2025-01-08 14:34 | XMS_ITS | Encounter Summary ---
Author Organization [facility] Address [facility] [place] [address] Care Team Providers Care Auto Parts Salesperson Name Role Phone Roxie Meadows MD Primary Care Provider [phone] Encounter Details Date Type Department Care Team (Latest Contact Info) Description 12/21/2022 MyChart Message Enc [facility] Multispecialty Care - [facility] 3 [facility], [address] [place] [address] Wilner Rosario MD 3 [place] [address] updated information Social History Tobacco Use Types Packs/Day Years Used Date Smoking Tobacco: Every Day Cigarettes Passive Smoke Exposure: Current Smokeless Tobacco: Never PHQ-2 Answer Date Recorded Patient Health Questionnaire-2 Score 1 12/20/2022 Comments Unknown Sex and Gender Information Value Date Recorded Sex Assigned at Female 08/14/2024 5:42 AM FURNACE AND WASH EQUIPMENT OPERATOR Legal Sex Female 7:58 AM CDT Gender Identity Not on file Sexual Orientation Not on file documented as of this encounter Plan of Treatment Upcoming Encounters Date Type Department Care Team (Late st Contact Info) Description 01/11/2025 10:00 AM CDT Appointment [facility] 725 [place], [place] [phone] Tho Horner, PT 725 [place] [address] Stefan Dsouza, AIRCRAFT MAINTENANCE INSTRUCTOR 1215 [facility] [place] [address] 01/13/2025 9:15 AM CDT Appointment [facility] 725 [place] [address] Tho Horner, PT 725 [place] [address] 01/15/2025 8:30 AM CDT Appointment [facility] [address] [facility] [address] Fam Valadez MD 3 [facility] [address] [place] [address] 01/21/2025 10:00 AM CDT Office Visit [facility] [address] [facility] [address] [place] [address] Fam Valadez MD 3 [facility] [address] [place] [address] 01/22/2025 10:20 AM CDT Office Visit [facility] Medical Group Multispecialty Care - [facility] [address], [address] [place] [address] Wilner Rosario MD [address] [facility] [place] [address] 03/08/2025 10:00 AM CDT Office Visit [facility] [address] [place] [address] Nicholas Simms MD Three [facility] [address] [place] [address] 05/04/2025 2:00 PM FURNACE AND WASH EQUIPMENT OPERATOR Office Visit [facility] [address] [phone] Ac Connelly MD 3 [facility] [address] [place] [address] documented as of this encounter Visit Diagnoses Not on filedocumented in this encounter Care Teams Auto Parts Salesperson Relationship Specialty Start Date End Date Roxie Meadows MD [address] [place] [address] [place] [address] PCP - General FAMILY PRACTICE 04/01/20 documented as of this encounter
--- OUTSIDE RECORDS SUMMARY | 2025-01-08 14:34 | XMS_ITS | Encounter Summary ---
Author Organization [facility] Address [facility] [place] [address] Care Team Providers Care Composition Teacher Name Role Phone Roxie Meadows MD Primary Care Provider [phone] Encounter Details Date Type Department Care Team (Late st Contact Info) Description 11/08/2024 Bootleg Markethart Message Enc [facility] Medical [facility] Neurology Speciality Clinic - [address] [place] [address] Wilner Rosario MD 3 [place] [address] Info you requested Social History Tobacco Use Types Packs/Day Years Used Date Smoking Tobacco: Never Cigarettes 1.5 50 - 01/16/2024 Passive Smoke Exposure: Current Smokeless Tobacco: Never Comments:Proivder to adolescent counselor Alcohol Use Standard Drinks/Week Comments Yes [...] Sex Assigned at Female 08/14/2024 5:42 AM WAITER/WAITRESS ECONOMY CLASS Legal Sex Female 7:58 AM CDT Gender Identity Not on file Sexual Orientation Not on file documented as of this encounter Plan of Treatment Upcoming Encounters Date Type Department Care Team (Late st Contact Info) Description 01/11/2025 10:00 AM CDT Appointment [facility] 725 [place] [address] Tho Horner, PT 725 [place] [address] Stefan Dsouza, ORACLE SPECIALIST 1215 [facility] [place] [address] 01/13/2025 9:15 AM CDT Appointment [facility] 725 [place] [address] Tho Horner, PT 725 [place] [address] 01/15/2025 8:30 AM CDT Appointment [facility] [place] [address] Fam Valadez MD 3 [facility] [address] [place] [address] 01/21/2025 10:00 AM CDT Office Visit [facility] THREE [facility] [place] [place] [address] Fam Valadez MD 3 [facility] [address] [place] [address] 01/22/2025 10:20 AM CDT Office Visit [facility] Medical Group Multispecialty Care - [facility] 3 [facility], [address] [place] [address] Wilner Rosario MD 3 [facility] [place] [address] 03/08/2025 10:00 AM CDT Office Visit [facility] [address] [place] [address] Nicholas Simms MD Three [facility] [address] [place] [address] 05/04/2025 2:00 PM WAITER/WAITRESS ECONOMY CLASS Office Visit [facility] Medical Group [facility] Clinic [address] [phone] Ac Connelly MD 3 [facility] [address] [place] [address] documented as of this encounter Visit Diagnoses Not on filedocumented in this encounter Care Teams Composition Teacher Relationship Specialty Start Date End Date Roxie Meadows MD [address] [facility] [place] [address] PCP - General FAMILY PRACTICE 04/01/20 documented as of this encounter
--- OUTSIDE RECORDS SUMMARY | 2025-01-08 14:34 | XMS_ITS | Encounter Summary ---
Author Organization [facility] Address [facility] [place] [address] Care Team Providers Care Carbon Plant Grinder Name Role Phone Roxie Meadows MD Primary Care Provider [phone] Encounter Details Date Type Department Care Team (Latest Contact Info) Description 06/13/2024 iCar Asiat Message Enc [facility] Clinic [address] [address] Ac Connelly MD [address] [place] [address] refill request Social History Tobacco Use Types Packs/Day Years Used Date Smoking Tobacco: Never Cigarettes 1.5 50 - 01/16/2024 Passive Smoke Exposure: Current Smokeless Tobacco: Never Comments:Proivder to pastoral counselor Alcohol Use Standard Drinks/Week Comments Yes 0 (1 standard drink = 0.6 oz pur e alcohol) rarely PHQ-2 Answer Date Recorded Patient Health Questionnaire-2 Score 0 04/29/2024 Comments No Sex and Gender Information Value Date Recorded Sex Assigned at Female 08/14/2024 5:42 AM BILLING COLLECTIONS SPECIALIST Legal Sex Female 7:58 AM CDT Gender Identity Not on file Sexual Orientation Not on file documented as of this encounter Plan of Treatment Upcoming Encounters Date Type Department Care Team (Late st Contact Info) Description 01/11/2025 10:00 AM CDT Appointment [facility] 725 [place] [address] Tho Horner, PT 725 [place] [address] Stefan Dsouza, HEALTHCARE FINANCIAL ANALYST 1215 [facility] [place] [address] 01/13/2025 9:15 AM CDT Appointment [facility] 725 [place] [address] Tho Horner, PT 725 [place] [address] 01/15/2025 8:30 AM CDT Appointment [facility] ONE [facility] [place] [address] Fam Valadez MD 3 [facility] [address] [place] [address] 01/21/2025 10:00 AM CDT Office Visit [facility] THREE [facility] [place] [address] [place] [address] Fam Valadez MD 3 [facility] [address] [place] [address] 01/22/2025 10:20 AM CDT Office Visit [facility] Medical Group Mult[facility]pecialty Care - [facility] 3 [facility], [address] [place] [address] Wliner Rosario MD 3 [place] [address] 03/08/2025 10:00 AM CDT Office Visit [facility] [address] [place] [address] Nicholas Simms MD Three [facility] [address] [place] [address] 05/04/2025 2:00 PM BILLING COLLECTIONS SPECIALIST Office Visit [facility] [address] [address] Ac Connelly MD 3 [facility] [address] [place] [address] documented as of this encounter Visit Diagnoses Not on filedocumented in this encounter Care Teams Carbon Plant Grinder Relationship Specialty Start Date End Date Roxie Meadows MD [address] [facility] [place] [address] PCP - General FAMILY PRACTICE 04/01/20 documented as of this encounter
== END 2025-01-08 14:31 | disposition home or self-care (01) ==
PROVIDERS: PCP Family Medicine; Visit Provider Nurse Practitioner Adult Health
DX: M47.896 Other spondylosis, lumbar region (principal)
CPT/HCPCS: 72110

== ENCOUNTER 2025-03-14 12:54 | Inpatient (IN) | payer MEDICARE, OTHER, SELFPAY ==
--- OUTSIDE RECORDS SUMMARY | 2009-07-22 05:30 | XMS_ITS | Continuity of Care Document ---
Author Organization [facility] Address [address] [place] [address] Phone Care Team Providers Care Chrome Cleaner Name Role Phone Chang Huntely Unavailable Unavailable Procedures Procedure Date Office/outpatient Visit, Est Advance Directives Directive Yes / No Effective Date File Name No Information Encounters Encounter Description Practice Location Reason(s) For Visit Diagnoses Date Provider Providers Copied on Encounter Office/outpat ient Visit, Est [facility], [address], [place], [place], [id number], [place] tel:[phone] [facility] No Information [address] [facility] [address], [address], [place]. tel:[phone] Referring Provider: Niko Hopkins, [address], [place], [address]. tel:[phone] Family History Family Member Type Diagnosis Age At Onset No Information Payers Payer name Insurance type Covered libertarian ID Authoriza tion(s) No Information Social History Type Description Quantity Date Captured Comments Sex Female Smoking Status No Information Chief Complaint And Reason For Visit No Information Reason For Referral Reason For Referral No Information History Of Present Illness Encounter Date Complaint History Of Prese nt Illness No Information Functional Status Date Functional Assessmen t No Information Instructions Date Instruction Additional Infor mation No Information Assessments Type Assessment Date No Information Patient Care Teams Name Effective Dates (start - stop) Status Members No Information
--- OUTSIDE RECORDS SUMMARY | 2009-07-22 05:30 | XMS_ITS | Continuity of Care Document ---
Author Organization [facility] Address [address] [place] [address] Phone Care Team Providers Care Candle Wicker Name Role Phone Chang Huntley Unavailable Unavailable Procedures Procedure Date Office/outpatient Visit, Est Advance Directives Directive Yes / No Effective Date File Name No Information Encounters Encounter Description Practice Location Reason(s) For Visit Diagnoses Date Provider Providers Copied on Encounter Office/outpat ient Visit, Est [facility], [address], [place], [place], [id number], [place] tel:[phone] [facility] No Information [address] [facility] [address], [address], [place]. tel:[phone] Referring Provider: Niko Hopkins, [address], [place], [address]. tel:[phone] Family History Family Member Type Diagnosis Age At Onset No Information Payers Payer name Insurance type Covered green party ID Authoriza tion(s) No Information Social History [...]
[2025-03-14] VITALS (24 sets, daily range): BP systolic 101–149; BP diastolic 59–84; PULSE 66–97; RESP 14–20; TEMP 36.4–36.9; O2SAT 96–100; BMI 17.4
--- NOTE | ~2025-03-14 | CT_ITS ---
EXAMINATION: CTA chest abdomen pelvis, 03/14/2025 14:30 CDT HISTORY: Hx AAA, crushing CP, elev trop COMPARISON: No comparisons available. TECHNIQUE: CTA scan with 3D Reconstructions of the chest, abdomen and pelvis was performed with contrast Isovue 300, 92cc injected IV. One or more of the following dose reduction techniques were used: automated exposure control, adjustment of the mA and/or kV according to patient size, use of iterative reconstruction technique. Unless otherwise stated, incidental findings do not require dedicated follow up imaging FINDINGS: AORTA/VASCULATURE: There is aneurysmal dilatation of the ascending aorta maximally measuring 4.4 cm. Mild atherosclerotic changes noted of the thoracic aorta and abdominal aorta with ectasia but no aneurysm. The major aortic tributaries are grossly patent with no critical stenosis, occlusion or dissect ion demonstrated, there are bilateral single renal arteries, the KEILA is also patent CT chest: No significant coronary calcification is present ([id number]) LUNGS: No tracheomalacia. No bronchiectasis. Minimal emphysematous changes. There is no gross pulmonary embolism identified Uterus atrophic. HEART AND PERICARDIUM: Within normal limits. MEDIASTINUM: Unremarkable. THYROID: The thyroid is unremarkable. CT abdomen: LIVER: Unremarkable, liver contours intact, no lesions. SPLEEN: Unremarkable, no splenomegaly. KIDNEYS: Right Kidney: Unremarkable. No calculi. No hydronephrosis. Left Kidney: Left kidney subcentimeter probable renal cysts. ADRENAL GLANDS: Unremarkable. PANCREAS: GALLBLADDER/BILIARY: Unremarkable. No biliary dilatation. STOMACH AND ESOPHAGUS: Nonspecific patulous appearance of the esophagus may relate to underlying esophagitis. The stomach appears decompressed. BOWEL/MESENTERY: Moderate fecal content. No colitis or diverticulitis. Appendix appears normal. Mesentery normal. No dilated bowel loops. RETROPERITONEUM: Unremarkable . FREE FLUID OR FREE AIR: No free fluid.. CT pelvis: SOLID ORGANS/REPRODUCTIVE: No adnexal mass. BLADDER: Within normal limits. LYMPHADENOPATHY: No lymphadenopathy. OSSEOUS STRUCTURES: No acute osseous abnormality.No suspicious lesions. OVERLYING SOFT TISSUES: Left pacemaker. IMPRESSION: 1. No aneurysm or dissection identified. No acute process. 2. Incidental findings above Reviewed, dictated and finalized at location P.
--- NOTE | ~2025-03-14 | XR_ITS ---
Examination: XR chest 2V Clinical History: chest pain Comparison: None Technique: PA and Lateral Findings: Left-sided neurostimulator. Cardiomediastinal silhouette normal size and configuration. Hyperinflation. Lungs clear. Left breast calcifications as before. No acute bony abnormality. IMPRESSION: 1. No acute cardiopulmonary findings. Reviewed, dictated and finalized at location R.
--- OUTSIDE RECORDS SUMMARY | 2025-03-14 12:56 | XMS_ITS | Encounter Summary ---
Author Organization [facility] Address [facility] [place] [address] Care Team Providers Care Asphalt Paving Supervisor Name Role Phone Roxie Meadows MD Primary Care Provider [phone] Encounter Details Date Type Department Care Team (Late st Contact Info) Description 06/07/[address] [facility] Medical Group Multispecialty Care - [facility] 3 [facility], [address] [place] [address] Wilner Rosario MD 3 [place] [address] dyskinesia Social History Tobacco Use Types Packs/Day [...] Sex Assigned at Female 08/14/2024 5:42 AM CITY LETTER CARRIER Legal Sex Female 7:58 AM CDT Gender Identity Not on file Sexual Orientation Not on file documented as of this encounter Plan of Treatment Upcoming Encounters Date Type Department Care Team (Late st Contact Info) Description 03/16/2025 11:15 AM CDT Appointment [facility] 5 [place] [address] Tho Horner, PT 725 [place] [address] James Mcduffie MD [address] [facility] [address], [place] [place] [address] Dayton Sidhu, WAREHOUSE LOGISTICS COORDINATOR 1215 [place] [address] 03/17/2025 11:40 AM CDT [facility] [address], [address] [phone] Wilner Rosario MD 3 [place] [address] 03/18/2025 10:45 AM CDT Appointment [facility] 725 [place] [address] Tho Horner, PT 725 [place] [address] 05/04/2025 2:00 PM CITY LETTER CARRIER Office Visit [facility] Clinic [address] [phone] Ac Connelly MD [address] [address] 06/23/2025 11:40 AM CITY LETTER CARRIER [facility] 3 [facility], [address] [phone] Wilner Rosario MD 3 [place] [address] 08/09/2025 9:30 AM CITY LETTER CARRIER Appointment [facility] ONE [facility] [place] [address] Nicholas Simms MD Three [facility] [address] [place] [address] 03/07/2026 10:15 AM CDT Office Visit [facility] [address] [place] [address] Nicholas Simms MD Three [facility] [address] [place] [address] 05/10/2026 9:00 AM CITY LETTER CARRIER Appointment [place] [facility] [address] [place] [address] Fam Valadez MD 3 [facility] [address] [place] [address] 05/19/2026 10:30 AM CITY LETTER CARRIER Office Visit [facility] THREE [facility], [address] [place] [address] Fam Valadez MD [address] [facility] [address] [place] [address] documented as of this encounter Visit Diagnoses Not on filedocumented in this encounter Care Teams Asphalt Paving Supervisor Relationship Specialty Start Date End Date Roxie Meadows MD [address] [place] [phone] PCP - General FAMILY PRACTICE 04/01/20 documented as of this encounter
--- OUTSIDE RECORDS SUMMARY | 2025-03-14 12:56 | XMS_ITS | Encounter Summary ---
Author Organization [facility] Address [facility] [place] [address] Care Team Providers Care Tire Vulcanizer Name Role Phone Roxie Meadows MD Primary Care Provider Encounter Details Date Type Department Care Team (Latest Contact Info) Description 12/21/2022 MyChart Message Enc [facility] Medical [facility] Multispecialty Care - [facility] 3 [facility], [address] [place] [address] Wilner Rosario MD 3 [place] [address] updated information Social History Tobacco Use Types Packs/Day Years Used Date Smoking Tobacco: Every Day Cigarettes Passive Smoke Exposure: Current Smokeless Tobacco: Never PHQ-2 Answer Date Recorded Patient Health Questionnaire-2 Score 1 12/20/2022 Comments Unknown Sex and Gender Information Value Date Recorded Sex Assigned at Female 08/14/2024 5:42 AM CORPORATE PLANNER Legal Sex Female 7:58 AM CDT Gender Identity Not on file Sexual Orientation Not on file documented as of this encounter Plan of Treatment Upcoming Encounters Date Type Department Care Team (Late st Contact Info) Description 03/16/2025 11:15 AM CDT Appointment [facility] 725 [place], [place] [address] Tho Horner, PT 725 [place] [address] James Mcduffie MD 68[address] [facility] [address], [facility] [place] [address] Dayton Sidhu, [facility] [address] [facility] [place] [address] 03/17/2025 11:40 AM CDT [facility] 3 [facility], [address] [place] [phone] Wilner Rosario MD 3 [place] [address] 03/18/2025 10:45 AM CDT Appointment [facility] 725 [place] [address] Tho Horner, PT 725 [place] [address] 05/04/2025 2:00 PM CORPORATE PLANNER Office [facility] [address] [address] Ac Connelly MD [address] [address] 06/23/2025 11:40 AM CORPORATE PLANNER Office Visit [facility] 3 [facility], [address] [place] [phone] Wilner Rosario MD 3 [place] [address] 08/09/2025 9:30 AM CORPORATE PLANNER Appointment [facility] ONE [facility] [place] [address] Nicholas Simms MD [address] [place] [address] 03/07/2026 10:15 AM CDT Office Visit [facility] [address] [place] [address] Nicholas Simms MD Three [facility] [address] [place] [address] 05/10/2026 9:00 AM CORPORATE PLANNER Appointment [facility] [address] [place] [address] Fam Valadez MD 3 [facility] [address] [place] [address] 05/19/2026 10:30 AM CORPORATE PLANNER Office Visit [facility] THREE [facility], [address] [place] [address] Fam Valadez MD 3 [facility] [address] [place] [address] documented as of this encounter Visit Diagnoses Not on filedocumented in this encounter Care Teams Tire Vulcanizer Relationship Specialty Start Date End Date Roxie Meadows MD [address] [place] [phone] PCP - General FAMILY PRACTICE 04/01/20 documented as of this encounter
--- OUTSIDE RECORDS SUMMARY | 2025-03-14 12:56 | XMS_ITS | Encounter Summary ---
Author Organization [facility] Address [facility]6 [place] [address] Care Team Providers Care Wound Care Coordinator Name Role Phone Roxie Meadows MD Primary Care Provider [phone] Encounter Details Date Type Department Care Team (Latest Contact Info) Description 11/22/2023 Service Seekingt Message Enc [facility] Medical Group Gastroenterology Specialty Clinic [address] [address] Ac Connelly MD [address] [place] [address] Medication change request Social History Tobacco Use Types Packs/Day Years Used Date Smoking Tobacco: Every Day Cigarettes 1.5 50 Passive Smoke Exposure: Current Smokeless Tobacco: Never Comments:Proivder to residential youth counselor Alcohol Use Standard Drinks/Week Comments Yes 1.7 (1 standard drink = 0.6 oz p ure alcohol) PHQ-2 Answer Date Recorded Patient Health Questionnaire-2 Score 0 11/01/2023 Comments No Sex and Gender Information Value Date Recorded Sex Assigned at Female 08/14/2024 5:42 AM MANAGER SMALL BUSINESS Legal Sex Female 7:58 AM CDT Gender Identity Not on file Sexual Orientation Not on file documented as of this encounter Plan of Treatment Upcoming Encounters Date Type Department Care Team (Late st Contact Info) Description 03/16/2025 11:15 AM CDT Appointment [facility] 725 [place], [place] [phone] Tho Horner M, PT 725 [place] [address] James Mcduffie MD 6828 [facility] [address], [facility] [place] [address] Dayton Sidhu, STRAP SETTER 1215 [facility] [place] [address] 03/17/2025 11:40 AM CDT [facility] [address], [facility] 5000 [place] [phone] Wilner Rosario MD [address] [place] [address] 03/18/2025 10:45 AM CDT Appointment [facility] 725 [place] [address] Tho Horner, PT 725 [place] [address] 05/04/2025 2:00 PM MANAGER SMALL BUSINESS Office Visit [facility] Clinic [address] [address] Ac Connelly MD [address] [address] 06/23/2025 11:40 AM MANAGER SMALL BUSINESS [facility] 3 [facility], [address] [place] [phone] Wilner Rosario MD 3 [place] [address] 08/09/2025 9:30 AM MANAGER SMALL BUSINESS Appointment [facility] [address] [place] [address] Nicholas Simms MD [address] [place] [address] 03/07/2026 10:15 AM CDT Office Visit [facility] [address] [place] [address] Nicholas Simms MD [address] [place] [address] 05/10/2026 9:00 AM MANAGER SMALL BUSINESS Appointment [facility] [address] [place] [address] Fam Valadez MD 3 [facility] [address] [place] [address] 05/19/2026 10:30 AM MANAGER SMALL BUSINESS Office Visit [facility] THREE [facility] [address] [place] [address] Fam Valadez MD 3 [facility] [address] [place] [address] documented as of this encounter Visit Diagnoses Not on filedocumented in this encounter Care Teams Wound Care Coordinator Relationship Specialty Start Date End Date Roxie Meadows MD [address] [place] [phone] PCP - General FAMILY PRACTICE 04/01/20 documented as of this encounter
--- OUTSIDE RECORDS SUMMARY | 2025-03-14 12:56 | XMS_ITS | Encounter Summary ---
Author Organization [facility] Address [facility] [place] [address] Care Team Providers Care Fresh Meat Grader Name Role Phone Roxie Meadows MD Primary Care Provider [phone] Encounter Details Date Type Department Care Team (Late st Contact Info) Description 11/13/2024 MyChart Message Enc [facility] Medical Group Neurology Speciality Clinic - [address] [place] [address] Wilner Rosario MD 3 [place] [address] RE: referral to Dr Cabrera Social History Tobacco Use Types Packs/Day Years Used Date Smoking Tobacco: Never Cigarettes 1.5 50 - 01/16/2024 Passive Smoke Exposure: Current Smokeless Tobacco: Never Comments:Proivder to corporate travel counselor Alcohol Use Standard Drinks/Week Comments [...] Sex Assigned at Female 08/14/2024 5:42 AM BACK ORDER CLERK Legal Sex Female 7:58 AM CDT Gender Identity Not on file Sexual Orientation Not on file documented as of this encounter Plan of Treatment Upcoming Encounters Date Type Department Care Team (Late st Contact Info) Description 03/16/2025 11:15 AM CDT Appointment [facility] 725 [place] [address] Tho Horner, PT 725 [place] [address] James Mcduffie MD [address] [facility] [address], [place] [address] Dayton Sidhu, [facility] 1215 [place] [place] [address] 03/17/2025 11:40 AM CDT Office Visit [facility] Multispecialty Care - [address], [address] [place] [address] Wilner Rosario MD 3 [place] [address] 03/18/2025 10:45 AM CDT Appointment [facility] 725 [place] [address] Tho Horner, PT 725 [place] [address] 05/04/2025 2:00 PM BACK ORDER CLERK Office Visit [facility] Clinic [address] [address] Ac Connelly MD 3 [facility] [address] [place] [address] 06/23/2025 11:40 AM BACK ORDER CLERK Office Visit [facility] Group Multispecialty Care - [facility] 3 [facility], [address] [place] [address] Wilner Rosario MD 3 [place] [address] 08/09/2025 9:30 AM BACK ORDER CLERK Appointment [facility]vasive Cardiology ONE [facility] [place] [address] Nicholas Simms MD Three [facility] [address] [place] [address] 03/07/2026 10:15 AM CDT Office Visit [facility] [address] [place] [address] Nicholas Simms MD Three [facility] [address] [place] [address] 05/10/2026 9:00 AM BACK ORDER CLERK [facility] [address] [facility] [place] [address] Fam Valadez MD 3 [facility] [address] [place] [address] 05/19/2026 10:30 AM BACK ORDER CLERK Office Visit [facility] THREE [facility], [address] [place] [address] Fam Valadez MD 3 [facility] [address] [place] [address] documented as of this encounter Visit Diagnoses Not on filedocumented in this encounter Care Teams Fresh Meat Grader Relationship Specialty Start Date End Date Roxie Meadows MD [address] [place] [address] PCP - General FAMILY PRACTICE 04/01/20 documented as of this encounter
--- OUTSIDE RECORDS SUMMARY | 2025-03-14 12:56 | XMS_ITS | Encounter Summary ---
Author Organization [facility] Address [facility] [place] [address] Care Team Providers Care Coffee Grinder Name Role Phone Roxie Meadosw MD Primary Care Provider [phone] Encounter Details Date Type Department Care Team (Late st Contact Info) Description 08/31/2024 Citizenside Message Enc [facility], [facility] [address] [place], [place] [id number] Chantell Laguna, ANP-BC Three [facility]. [facility] [address] [place], [place] [id number] Test Results Social History Tobacco Use Types Packs/Day Years Used Date Smoking Tobacco: Never Cigarettes 1.5 50 - 01/16/2024 Passive Smoke Exposure: Current Smokeless Tobacco: Never Comments:Proivder to university counselor Alcohol Use Standard Drinks/Week Comments Yes 0 (1 standard drink = 0.6 oz pur e alcohol) rarely PHQ-2 Answer Date Recorded Patient Health Questionnaire-2 Score 0 04/29/2024 Comments No Sex and Gender Information Value Date Recorded Sex Assigned at Female 08/14/2024 5:42 AM CARGO TANK MECHANIC Legal Sex Female 7:58 AM CDT Gender Identity Not on file Sexual Orientation Not on file documented as of this encounter Plan of Treatment Upcoming Encounters Date Type Department Care Team (Late st Contact Info) Description 03/16/2025 11:15 AM CDT Appointment [facility] 5 [place] [address] Tho Horner, PT 725 [place] [address] James Mcduffie MD 6828 [facility] [address], [facility] [place] [address] Dayton Sidhu, MEDICAL SERVICE TECHNICIAN 1215 [facility] [place] [address] 03/17/2025 11:40 AM CDT [facility] - [address], [address] [phone] Wilner Rosario MD 3 [place] [address] 03/18/2025 10:45 AM CDT Appointment [facility] 725 [place] [address] Tho Horner, PT 725 [place] [address] 05/04/2025 2:00 PM CARGO TANK MECHANIC Office [facility] [address] [phone] Ac Connelly MD [address] [address] 06/23/2025 11:40 AM CARGO TANK MECHANIC [facility] 3 [facility], [address] [place] [address] Wilner Rosario MD 3 [place] [address] 08/09/2025 9:30 AM CARGO TANK MECHANIC Appointment [facility] [place] [place] [address] Nicholas Simms MD Three [facility]., [address] [place] [address] 03/07/2026 10:15 AM CDT Office Visit [facility] [address] [place] [address] Nicholas Simms MD Three [facility]., [address] [place] [address] 05/10/2026 9:00 AM CARGO TANK MECHANIC [facility]ointment [facility] [place] [address] [place] [address] Fam Valadez MD 3 [facility] [address] [place] [address] 05/19/2026 10:30 AM CARGO TANK MECHANIC Office Visit [facility] [address] [facility], [address] [place] [address] Fam Valadez MD 3 [facility] [address] [place] [address] documented as of this encounter Visit Diagnoses Not on filedocumented in this encounter Care Teams Coffee Grinder Relationship Specialty Start Date End Date Roxie Meadows MD [address] [place] [phone] PCP - General FAMILY PRACTICE 04/01/20 documented as of this encounter
--- OUTSIDE RECORDS SUMMARY | 2025-03-14 12:56 | XMS_ITS | Encounter Summary ---
Author Organization [facility] Address [facility] [place] [address] Care Team Providers Care Office Helper Clerical Name Role Phone Roxie Meadows MD Primary Care Provider [phone] Encounter Details Date Type Department Care Team (Late st Contact Info) Description 07/28/2024 MyChart Message Enc [facility] Medical Group Neurology Speciality Clinic - [address] [place] [address] Wilner Rosario MD 3 [place] [address] Documents/Mary Social History Tobacco Use Types Packs/Day Years Used Date Smoking Tobacco: Never Cigarettes 1.5 50 - 01/16/2024 Passive Smoke Exposure: Current Smokeless Tobacco: Never Comments:Proivder to career counselor Alcohol Use Standard Drinks/Week Comments Yes 0 (1 standard drink = 0.6 oz pur e alcohol) rarely PHQ-2 Answer Date Recorded Patient Health Questionnaire-2 Score 0 04/29/2024 Comments No Sex and Gender Information Value Date Recorded Sex Assigned at Female 08/14/2024 5:42 AM BIOLOGICAL INSPECTOR Legal Sex Female 7:58 AM CDT Gender Identity Not on file Sexual Orientation Not on file documented as of this encounter Plan of Treatment Upcoming Encounters Date Type Department Care Team (Late st Contact Info) Description 03/16/2025 11:15 AM CDT Appointment [facility] 5 [place] [address] Tho Horner, PT 725 [place] [address] James Mcduffie MD 6828 [facility] [address], [facility] [place] [address] Dayton Sidhu, SPINNER CONCRETE PIPE 1215 [facility] [place] [address] 03/17/2025 11:40 AM CDT [facility] - [address], [address] [phone] Wilner Rosario MD 3 [place] [address] 03/18/2025 10:45 AM CDT Appointment [facility] 725 [place] [address] Tho Horner, PT 725 [place] [address] 05/04/2025 2:00 PM BIOLOGICAL INSPECTOR Office Visit [facility] [address] [phone] Ac Connelly MD [address] [address] 06/23/2025 11:40 AM BIOLOGICAL INSPECTOR [facility] 3 [facility], [address] [place] [address] Wilner Rosario MD 3 [place] [address] 08/09/2025 9:30 AM BIOLOGICAL INSPECTOR Appointment [place] [place] [facility] [place] [address] Nicholas Simms MD Three [facility] [address] [place] [address] 03/07/2026 10:15 AM CDT Office Visit [facility] [address] [place] [address] Nicholas Simms MD Three [facility]., [address] [place] [address] 05/10/2026 9:00 AM BIOLOGICAL INSPECTOR [facility]ointment [facility] [place] [address] [place] [address] Fam Valadez MD 3 [facility] [address] [place] [address] 05/19/2026 10:30 AM BIOLOGICAL INSPECTOR Office Visit [facility] THREE [facility], [address] [place] [address] Fam Valadez MD 3 [facility] [address] [place] [address] documented as of this encounter Visit Diagnoses Not on filedocumented in this encounter Care Teams Office Helper Clerical Relationship Specialty Start Date End Date Roxie Meadows MD [address] [place] [phone] PCP - General FAMILY PRACTICE 04/01/20 documented as of this encounter
--- OUTSIDE RECORDS SUMMARY | 2025-03-14 12:56 | XMS_ITS | Encounter Summary ---
Author Organization [facility] Address [facility] [place] [address] Care Team Providers Care Ornamental Metal Erector Name Role Phone Roxie Meadows MD Primary Care Provider [phone] Encounter Details Date Type Department Care Team (Late st Contact Info) Description 11/08/2024 BuzzVotehart Message Enc [facility] Medical Group Neurology Speciality Clinic - [address] [place] [address] Wilner Rosario MD 3 [place] [address] Info you requested Social History Tobacco Use Types Packs/Day Years Used Date Smoking Tobacco: Never Cigarettes 1.5 50 - 01/16/2024 Passive Smoke Exposure: Current Smokeless Tobacco: Never Comments:Proivder to parliamentary counsel Alcohol Use Standard Drinks/Week Comments Yes 0 [...] Sex Assigned at Female 08/14/2024 5:42 AM SHIFT PRODUCTION ASSOCIATE Legal Sex Female 7:58 AM CDT Gender Identity Not on file Sexual Orientation Not on file documented as of this encounter Plan of Treatment Upcoming Encounters Date Type Department Care Team (Late st Contact Info) Description 03/16/2025 11:15 AM CDT Appointment [facility] 725 [place] [address] Tho Horner, PT 725 [place] [address] James Mcduffie MD 6828 [facility] [address], [place] [address] Dayton Sidhu, LEAVE MANAGER 1215 [place] [address] 03/17/2025 11:40 AM CDT Office Visit [facility] - [address], [address] [place] [address] Wilner Rosario MD 3 [place] [address] 03/18/2025 10:45 AM CDT Appointment [facility] 725 [place] [address] Tho Horner, PT 725 [place] [address] 05/04/2025 2:00 PM SHIFT PRODUCTION ASSOCIATE Office [facility] [address] [address] Ac Connelly MD 3 [facility] [address] [place], [place] [address] 06/23/2025 11:40 AM SHIFT PRODUCTION ASSOCIATE Office Visit [facility] Medical Group Multispecialty Care - [facility] 3 [facility], [address] [place] [address] Wilner Rosario MD 3 [facility] [place] [address] 08/09/2025 9:30 AM SHIFT PRODUCTION ASSOCIATE Appointment [facility] Non Invasive Cardiology ONE [facility] [place] [address] Nicholas Simms MD Three [facility] [address] [place] [address] 03/07/2026 10:15 AM CDT Office Visit [facility] [address] [place] [address] Nicholas Simms MD Three [facility] [address] [place] [address] 05/10/2026 9:00 AM SHIFT PRODUCTION ASSOCIATE [facility] [place] 1215 [facility] [place] [address] Fam Valadez MD 3 [facility] [address] [place] [address] 05/19/2026 10:30 AM SHIFT PRODUCTION ASSOCIATE Office Visit [facility] THREE [facility], [address] [place] [address] Fam Valadez MD 3 [facility] [address] [place] [address] documented as of this encounter Visit Diagnoses Not on filedocumented in this encounter Care Teams Ornamental Metal Erector Relationship Specialty Start Date End Date Roxie Meadows MD [address] [facility] [place] [address] PCP - General FAMILY PRACTICE 04/01/20 documented as of this encounter
--- OUTSIDE RECORDS SUMMARY | 2025-03-14 12:56 | XMS_ITS | Encounter Summary ---
Author Organization [facility] Address [facility] [place] [address] Care Team Providers Care Car Sweeper Name Role Phone Roxie Meadows MD Primary Care Provider [phone] Encounter Details Date Type Department Care Team (Latest Contact Info) Description 06/13/2024 StumbleUpont Message Enc [facility] [address] [address] Ac Connelly MD [address] [place] [address] refill request Social History Tobacco Use Types Packs/Day Years Used Date Smoking Tobacco: Never Cigarettes 1.5 50 - 01/16/2024 Passive Smoke Exposure: Current Smokeless Tobacco: Never Comments:Proivder to community health counselor Alcohol Use Standard Drinks/Week Comments Yes 0 (1 standard drink = 0.6 oz pur e alcohol) rarely PHQ-2 Answer Date Recorded Patient Health Questionnaire-2 Score 0 04/29/2024 Comments No Sex and Gender Information Value Date Recorded Sex Assigned at Female 08/14/2024 5:42 AM ALTERATION HAND Legal Sex Female 7:58 AM CDT Gender Identity Not on file Sexual Orientation Not on file documented as of this encounter Plan of Treatment Upcoming Encounters Date Type Department Care Team (Late st Contact Info) Description 03/16/2025 11:15 AM CDT Appointment [facility] 725 [place] [address] Tho Horner, PT 725 [place] [address] James Mcduffie MD [address] [address] Dayton Sidhu, SURG RN 1215 [facility] [place] [address] 03/17/2025 11:40 AM CDT [facility] [address], [address] [phone] Wilner Rosario MD 3 [place], [place] [address] 03/18/2025 10:45 AM CDT Appointment [facility] 725 [place] [address] Tho Horner, PT 725 [place] [address] 05/04/2025 2:00 PM ALTERATION HAND Office Visit [facility] [address] [phone] Ac Connelly MD [address] [address] 06/23/2025 11:40 AM ALTERATION HAND [facility] 3 [facility], [address] [phone] Wilner Rosario MD 3 [place] [address] 08/09/2025 9:30 AM ALTERATION HAND Appointment [place] [place] [address] Nicholas Simms MD [address] [place] [address] 03/07/2026 10:15 AM CDT Office Visit [facility] [address] [place] [address] Nicholas Simms MD Three [facility] [address] [place] [address] 05/10/2026 9:00 AM ALTERATION HAND Appointment [facility] [address] [place] [address] Fam Valadez MD 3 [facility] [address] [place] [address] 05/19/2026 10:30 AM ALTERATION HAND Office Visit [facility] THREE [facility], [address] [place] [address] Fam Valadez MD 3 [facility] [address] [place] [address] documented as of this encounter Visit Diagnoses Not on filedocumented in this encounter Care Teams Car Sweeper Relationship Specialty Start Date End Date Roxie Meadows MD [address] [place] [phone] PCP - General FAMILY PRACTICE 04/01/20 documented as of this encounter
--- OUTSIDE RECORDS SUMMARY | 2025-03-14 12:56 | XMS_ITS | Encounter Summary ---
Author Organization [facility] Address [facility] [place] [address] Care Team Providers Care Apprentice Cosmetologist Name Role Phone Roxie Meadows MD Primary Care Provider [phone] Encounter Details Date Type Department Care Team (Late st Contact Info) Description 09/22/2024 MyChart Message Enc [facility] Medical Group Neurology Speciality Clinic - [address] [place] [phone] Wilner Rosario MD 3 [place], [place] [phone] update decreasing carbo/Levo Social History Tobacco Use Types Packs/Day Years Used Date Smoking Tobacco: Never Cigarettes 1.5 50 - 01/16/2024 Passive Smoke Exposure: Current Smokeless Tobacco: Never Comments:Proivder to automobile club travel counselor Alcohol Use Standard Drinks/Week Comments Yes 0 (1 standard drink = 0.6 oz pur e alcohol) rarely PHQ-2 Answer Date Recorded Patient Health Questionnaire-2 Score 0 04/29/2024 Comments No Sex and Gender Information Value Date Recorded Sex Assigned at Female 08/14/2024 5:42 AM MAGNAFLUX OPERATOR Legal Sex Female 7:58 AM CDT Gender Identity Not on file Sexual Orientation Not on file documented as of this encounter Plan of Treatment Upcoming Encounters Date Type Department Care Team (Late st Contact Info) Description 03/16/2025 11:15 AM CDT Appointment [facility] 725 [place] [address] Tho Horner, PT 725 [place] [address] James Mcduffie MD 6828 [facility] [address], [facility] [place] [address] Dayton Sidhu, PRODUCTION LINE MANAGER 1215 [facility] [place] [address] 03/17/2025 11:40 AM CDT [facility] - [address], [address] [phone] Wilner Rosario MD 3 [place] [address] 03/18/2025 10:45 AM CDT Appointment [facility] 725 [place] [address] Tho Horner, PT 725 [place] [address] 05/04/2025 2:00 PM MAGNAFLUX OPERATOR Office Visit [facility] [address] [phone] Ac Connelly MD [address] [address] 06/23/2025 11:40 AM MAGNAFLUX OPERATOR [facility] 3 [facility], [address] [place] [address] Wilner Rosario MD 3 [place] [address] 08/09/2025 9:30 AM MAGNAFLUX OPERATOR Appointment [place] [address] Nicholas Simms MD [address] [place] [address] 03/07/2026 10:15 AM CDT Office Visit [facility] [address] [place] [address] Nicholas Simms MD [address] [place] [address] 05/10/2026 9:00 AM MAGNAFLUX OPERATOR [facility]ment [facility] [place] [address] [place] [address] Fam Valadez MD 3 [facility] [address] [place] [address] 05/19/2026 10:30 AM MAGNAFLUX OPERATOR Office Visit [facility] THREE [facility], [address] [place] [address] Fam Valadez MD 3 [facility] [address] [place] [address] documented as of this encounter Visit Diagnoses Not on filedocumented in this encounter Care Teams Apprentice Cosmetologist Relationship Specialty Start Date End Date Roxie Meadows MD [address] [place] [address] PCP - General FAMILY PRACTICE 04/01/20 documented as of this encounter
--- OUTSIDE RECORDS SUMMARY | 2025-03-14 12:57 | XMS_ITS | Encounter Summary ---
Author Organization [facility] Address [facility]6 [place] [address] Care Team Providers Care Tool Design Engineer Name Role Phone Roxie Meadows MD Primary Care Provider [phone] Encounter Details Date Type Department Care Team (Late st Contact Info) Description 09/02/2023 MyChart Message Enc [facility] Medical Group Multispecialty Care - [facility] 3 [facility], [address] [place] [address] Wilner Rosario MD 3 [place] [address] shoulder inhury Social History Tobacco Use Types [...] Sex Assigned at Female 08/14/2024 5:42 AM AUTOMAT WATCHER Legal Sex Female 7:58 AM CDT Gender Identity Not on file Sexual Orientation Not on file documented as of this encounter Progress Notes * Ama Smith RN - 09/03/2023 7:27 AM CDT Please advise documented in this encounter Plan of Treatment Upcoming Encounters Date Type Department Care Team (Late st Contact Info) Description 03/16/2025 11:15 AM CDT Appointment [facility] 725 [place] [address] Tho Horner, PT 725 [place] [address] James Mcduffie MD [address], [place] [address] Dayton Sidhu, LIPSTICK MOLDER 1215 [facility] [place] [address] 03/17/2025 11:40 AM CDT [facility] - [address], [address] [address] Wilner Rosario MD [address] [place] [address] 03/18/2025 10:45 AM CDT Appointment [facility] 725 [place] [address] Tho Horner, PT 725 [place] [address] 05/04/2025 2:00 PM AUTOMAT WATCHER Office Visit [facility] Clinic [address] [address] Ac Connelly MD [address] [address] 06/23/2025 11:40 AM AUTOMAT WATCHER [facility] 3 [facility], [address] [place] [address] Wilner Rosario MD 3 [facility] [place] [address] 08/09/2025 9:30 AM AUTOMAT WATCHER Appointment [facility] Non Invasive Cardiology ONE [facility] [place] [address] Nicholas Simms MD Three [facility] [address] [place] [address] 03/07/2026 10:15 AM CDT Office Visit [facility] [address] [place] [address] Nicholas Simms MD Three [facility] [address] [place] [address] 05/10/2026 9:00 [address] W[address]ER [address] [facility] [facility] [place] [address] Fam Valadez MD 3 [facility] [address] [place] [address] 05/19/2026 10:30 AM AUTOMAT WATCHER Office Visit [facility] THREE [facility], [address] [place] [address] Fam Valadez MD 3 [facility] [address] [place] [address] documented as of this encounter Visit Diagnoses Not on filedocumented in this encounter Care Teams Tool Design Engineer Relationship Specialty Start Date End Date Roxie Meadows MD [address] [place], [place] [address] [place] [address] PCP - General FAMILY PRACTICE 04/01/20 documented as of this encounter
--- OUTSIDE RECORDS SUMMARY | 2025-03-14 12:57 | XMS_ITS | Clinical Summary ---
Author Organization [facility] Address [facility] [place] [address] Care Team Providers Care Certified Midwife Name Role Phone Roxie Meadows MD Primary Care Provider [phone] Allergies Active Allergy Reactions Criticality Noted Date Comments Gentamicin Swelling,Unknown 11/11/2018 Eye ointment, made eye red and swollen Iodinated Contrast Media Other (see comment) High 11/11/2018 Reaction: Hives, Medications melatonin 10 MG tabletIndications :sleep Take 1 tablet by mouth nightly as needed. Indications: sleep 025 Active acetaminophen (TYLENOL) 500 MG tabletIndications :pain Take 2 tablets by mouth every 6 (six) hours as needed. Indications: pain 025 Active zoledronic acid (RECLAST) 5 MG/100ML Solution infusionIndicatio ns:osteoporosis Inject 100 mLs into the vein once. Indications: osteoporosis Patient takes annually Active bisacodyl EC (DULCOLAX) 5 MG Tab EC tabletIndications :constipation Take 1 tablet (5 mg total) by mouth nightly as needed. Indications: constipation at bedtime. Active magnesium hydroxide (MILK OF MAGNESIA) 400 MG/5ML suspensionIndicat ions:Constipation Take 30 mLs by mouth daily as needed for Constipation. Indications: Constipation Active lactulose (CHRONULAC) 10 GM/15ML solutionIndicatio ns:Constipation Take 15 mLs by mouth 3 (three) times daily. Indications: Constipation 024 Active Cholecalciferol (VITAMIN D3) 50 MCG (1999 UT) CapIndications:paiz pplement Take 2,000 Units by mouth daily. Indications: supplement Active carbidopa-levodop a CR (SINEMET CR) 50-200 MG tabletIndications :Parkinson's Disease Take 1 tablet by mouth nightly at bedtime. 90 tablet 3 024 Active LORazepam (ATIVAN) 0.5 MG tablet Take 1 tablet (0.5 mg total) by mouth 3 (three) times daily as needed. 025 Active carbidopa-levodop a (SINEMET) 25-100 MG tabletIndications :Parkinson's disease with dyskinesia and fluctuating manifestations (CMS/HCC HHS/HCC) Take 1 tablet by mouth 4 (four) times daily. 120 tablet 11 025 Active FLUoxetine (PROZAC) 10 MG tablet 025 Active traMADol (ULTRAM) 50 MG tablet / TO 1 TABLET DAILY NEEDED FOR PAIN 025 Active mirtazapine (REMERON) 45 MG tabletIndications :Depression Take 1 tablet by mouth. Indications: Depression 2024 Discontinued carbidopa-levodop a (SINEMET) 25-100 MG tabletIndications :Parkinson's Disease Take 1 tablet by mouth as needed. Indications: Parkinson's Disease Patient takes 1 - 4 tablets daily, as needed. 025 2024 Discontinued lidocaine (LIDODERM) 5 % Place 1 patch onto the skin as needed. 025 2024 Discontinued prucalopride (MOTEGRITY) Tab tabletIndications :Chronic constipation Take 1 tablet (1 mg total) by mouth daily. 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 S/P deep brain stimulator placement 02/03/2024 Serum calcium elevated 11/01/2023 Aortic aneurysm 01/03/2023 Dystonia, unspecified 12/20/2022 Orthostatic hypotension 08/16/2021 Osteoporosis 08/04/2020 Radial styloid tenosynovitis 03/27/2019 REM sleep behavior disorder 03/27/2019 S/P laparoscopic appendectomy 01/13/2019 Serrated adenoma of colon 01/13/2019 Mass of appendix 12/17/2018 Anxiety disorder 03/19/2018 Disturbance in sleep behavior 03/19/2018 Keratosis, senilis 04/19/2017 Overview (01/03/2023): Description: Reassured Parkinson's disease ([facility]) 03/13/2017 Overview (11/01/2023): Last Assessment & Plan: [...] Encounters Date Type Department Care Team Description 03/11/2025 9:51 AM CDT - 03/11/2025 11:59 PM CDT Hospital Encounter [facility] [address] [place] [address] Tho Horner, PT Back Pain Discharge Disposition: Home or Self Care (Routine Discharge) 03/11/2025 Travel 03/08/2025 12:52 PM CDT - 03/08/2025 11:59 PM CDT Hospital Encounter [facility] [address] [place] [address] Tho Horner, PT Back Pain Discharge Disposition: Home or Self Care (Routine Discharge) 03/08/2025 10:00 AM CDT Office Visit [facility] [address] [place] [address] Nicholas Simms MD Hypertension (1yr) 03/08/2025 Orders Only [facility] [place] [address] [place] [address] Nicholas Simms MD 03/08/2025 Travel 03/04/2025 MyChart Message Enc [facility] - [facility] [address] [facility], [address] [place] [phone] Wilner Rosario MD refill request 03/03/2025 10:15 AM CDT - 03/03/2025 11:59 PM CDT Hospital Encounter [facility] [address] [place] [address] Tho Horner, PT James Mcduffie MD Dickman, Jonathan F, PTA Back Pain Discharge Disposition: Home or Self Care (Routine Discharge) 03/03/2025 Travel 03/01/2025 9:22 AM CDT - 03/01/2025 11:59 PM CDT Hospital Encounter [facility] [address] [place] [address] Tho Horner, PT Back Pain Discharge Disposition: Home or Self Care (Routine Discharge) 03/01/2025 Travel 02/16/2025 Telephone [facility] [address] [place] [address] James Mcduffie MD Appointment Request 02/05/2025 11:07 AM CDT - 02/05/2025 11:59 PM CDT Hospital Encounter [facility] [address] [place] [address] Tho Horner, PT Wilner Rosario MD Parkinson's Disease Discharge Disposition: Home or Self Care (Routine Discharge) 02/05/2025 Travel 02/03/2025 10:30 AM CDT - 02/03/2025 11:59 PM CDT [facility] [address] [place] [address] Tho Horner, Wilner Caraballo MD Parkinson's Disease Discharge Disposition: Home or Self Care (Routine Discharge) 02/03/2025 Travel 01/28/2025 9:49 AM CDT - 01/28/2025 11:59 PM CDT Hospital Encounter [facility] [address] [place] [address] Tho Horner, PT iWlner Rosario MD Parkinson's Disease Discharge Disposition: Home or Self Care (Routine Discharge) 01/28/2025 Travel 01/27/2025 8:50 AM CDT - 01/27/2025 11:59 PM CDT Hospital Encounter [facility] MRI [place] [address] James Li NP Discharge Disposition: Home or Self Care (Routine Discharge) 01/27/2025 Travel 01/26/2025 Telephone [facility] [address] [facility], [address] [place] [phone] Wilner Rosario MD Orders 01/25/2025 10:24 AM CDT - 01/25/2025 11:59 PM CDT Hospital Encounter [facility] [address] [place] [address] hTo Horner, PT Wilner Rosario MD Kovarik, Ryan A, COLLECTION ANALYST Parkinson's Disease Discharge Disposition: Home or Self Care (Routine Discharge) 01/25/2025 Travel 01/22/2025 10:20 AM CDT [facility] [address] [facility], [address] [place] [phone] Wilner Rosario MD Parkinson's Disease (Follow up) 01/22/2025 Therapy Plan [facility] - [facility] [address], [address] [place] [address] Wilner Rosario MD 01/22/2025 [facility] [address] [facility], [address] [place] [phone] Wilner Rosario MD Botox (Lower Limb Dystonia) 01/22/2025 Travel 01/21/2025 10:00 AM CDT [facility] [address] [address] Dean Valadez MD Thoracic Aortic Aneurysm 01/20/2025 10:19 AM CDT - 01/20/2025 11:59 PM CDT Hospital Encounter [facility] [address] [place] [address] Tho Horner, PT Wilner Rosario MD Kovarik, Ryan A, COLLECTION ANALYST Parkinson's Disease Discharge Disposition: Home or Self Care (Routine Discharge) 01/20/2025 Travel 01/18/2025 11:05 AM CDT - 01/18/2025 11:59 PM CDT Hospital Encounter [facility] [address] [place] [address] Tho Horner, PT Wilner Rosario MD Kovarik, Ryan A, COLLECTION ANALYST Parkinson's Disease Discharge Disposition: Home or Self Care (Routine Discharge) 01/18/2025 Travel 01/15/2025 7:48 AM CDT - 01/15/2025 11:59 PM CDT Hospital Encounter [facility] [place] [address] Dean Valadez MD Discharge Disposition: Home or Self Care (Routine Discharge) 01/15/2025 Telephone [facility] - [address] [place] [address] Wilner Rosario MD Information 01/15/2025 Travel 01/13/2025 9:09 AM CDT - 01/13/2025 11:59 PM CDT Hospital Encounter [facility] [address] [place] [address] Tho Horner, PT Parkinson's Disease Discharge Disposition: Home or Self Care (Routine Discharge) 01/13/2025 Travel 01/11/2025 10:00 AM CDT - 01/11/2025 11:59 PM CDT Hospital Encounter [facility] [address] [place] [address] Tho Horner, PT Stefan Dsouza PTA Parkinson's Disease Discharge Disposition: Home or Self Care (Routine Discharge) 01/11/2025 Travel 01/07/2025 7:43 AM CDT - 01/07/2025 11:59 PM CDT Hospital Encounter [facility] [address] [place] [address] Tho Horner, PT Wilner Rosario MD Parkinson's Disease Discharge Disposition: Home or Self Care (Routine Discharge) 01/07/2025 Travel 01/04/2025 8:30 AM CDT - 01/04/2025 11:59 PM CDT Hospital Encounter [facility] [address] [place] [address] Tho Horner, PT Parkinson's Disease Discharge Disposition: Home or Self Care (Routine Discharge) 01/04/2025 Travel 12/31/2024 MyChart Message Enc [facility] - [address], [address] [place] [phone] Wilner Rosario MD [facility] 12/23/2024 [facility]Chart Message [facility] - [address], [address] [place] [phone] Wilner Rosario MD referral request from Last 3 Months Immunizations Immunization Administration Dates Next Due Arexvy Respiratory Syncytial Virus (RSV, adjuvanted) 0.5 mL, PF 04/13/2023 Fluzone High Dose (IIV, triv alent, 0.5mL) 04/06/2018,03/31/2017 Fluzone High Dose - >Age 65 (Prefilled Syringe) 02/19/2020 Influenza (Generic) 04/09/2018, 8,04/13/2016,2015,04/03/2015,04/03/2015,03/25/2014,1 Influenza Adult (Generic) 03/23/2019,03/23/2019 MODERNA COVID-19, 6-11 Prima ry (DARK BLUE CAP) (previous 18+ monovalent booster), mRNA, LNP-S,PF, 50 mcg/ 0.50mL dose 10/06/2021,04/10/2021,09/09/2020,2020 Pneumococcal (Pneumovax 23) 03/09/2020, 0 Pneumococcal (Prevnar 13) 10/07/2018 Shingrix 04/13/2023,02/10/2023 Family History Medical History Relation Comments Cancer Brother Alcohol Abuse Father Cancer Father Arthritis Mother Diabetes Mother Miscarriages / Stillbirths Mother Cancer Son Early Son Relation Status Comments Brother Alive Father Alive Mother (Age 90) Son Social History Tobacco Use Types Packs/Day Years Used Date Smoking Tobacco: Never Cigarettes 1.5 50 - 01/16/2024 Passive Smoke Exposure: Current Smokeless Tobacco: Never Tobacco Cessation:Counseling Given: Not Answered Comments:Proivder to direct selling counselor Alcohol Use Standard Drinks/Week Comments Yes [...] Date Recorded Patient Health Questionnaire-2 Score 0 01/22/2025 Comments No Sex and Gender Information Value Date Recorded Sex Assigned at Female 08/14/2024 5:42 AM MENTAL HEALTH COORDINATOR Legal Sex Female 7:58 AM CDT Gender Identity Not on file Sexual Orientation Not on file Last Filed Vital Signs Vital Sign Reading Time Taken Comments Blood Pressure 82/48 03/08/2025 10:03 AM CDT Pulse 84 03/08/2025 10:03 AM CDT Temperature 37.2 C (99 F) 01/22/2025 10:04 AM CDT Respiratory Rate 16 01/22/2025 10:0 4 AM CDT Oxygen Saturation 96% 03/08/2025 10: 03 AM CDT Inhaled Oxygen Concentration - - Weight 45.7 kg (100 lb 12.8 oz) 025 10:03 AM CDT Height 162.6 cm (5' 4) 03/08/2025 10:0 3 AM CDT Body Mass Index 17.3 03/08/2025 10:03 AM CDT Plan of Treatment Upcoming Encounters Date Type Department Care Team (Late st Contact Info) Description 03/16/2025 11:15 AM CDT Appointment [facility] [address] [place] [address] Tho Horner, PT [address] [place] [address] James Mcduffie MD [address] [facility] [address], [place] [address] Dayton Sidhu, [facility] [address] [place] [address] 03/17/2025 11:40 AM CDT Office Visit [facility] - [facility] [address] [facility], [address] [place] [address] Wilner Rosario MD [address] [place] [address] 03/18/2025 10:45 AM CDT Appointment [facility] [address] [place] [address] Tho Horner, PT [address] [place] [address] 05/04/2025 2:00 PM MENTAL HEALTH COORDINATOR Office Visit [facility] [address] [phone] Ac Connelly MD 3 [facility] [place] [address] [place] [address] 06/23/2025 11:40 AM MENTAL HEALTH COORDINATOR Office Visit [facility] - [facility] [address] [facility], [address] [place] [address] Wilner Rosario MD [address] [facility] [place] [address] 08/09/2025 9:30 AM MENTAL HEALTH COORDINATOR Appointment [facility] [place] [address] Nicholas Simms MD [address] [facility] [place] [address] 03/07/2026 10:15 AM CDT Office Visit [facility] [address] [place] [address] Nicholas Simms MD [address] [facility] [place] [address] 05/10/2026 9:00 AM MENTAL HEALTH COORDINATOR Appointment [facility] [address] [place] [address] Dean Valadez MD [address] [facility] [address] [place] [address] 05/19/2026 10:30 AM MENTAL HEALTH COORDINATOR Office Visit [facility] [address] [place] [address] Dean Valadez MD [address] [facility] [address] [place] [address] Health Maintenance Due Date Last Done Comments Colorectal Cancer Screening Colonoscopy (10 Years) 1952 Hepatitis C 1970 DTaP, Tdap and Td Vaccines (1 - Tdap) 1971 Mammogram Screening 1992 Annual Medicare Wellness Visit 2017 Dexa Scan (General) 2017 COVID-19 Vaccine (2024- season) 2025 03/21/2023, 03/02/2022, 10/06/2021, Additional history exists Influenza Adult (#1) 2025 02/19/2020, 03/23/2019, 03/23/2019, Additional history exists Lung Cancer Screening 01/15/2026 01/15/2025 , 01/13/2024, 06/14/2023, Additional history exists Pneumococcal Vaccine: 50+ Years Completed 03/09/2020, 01/16/2020, 10/07/2018 RSV Immunization or 60+ Years Completed 04/13/2023 Zoster Vaccines Completed 04/13/2023, 02/10/2023 PHQ-2 (Physician Ada) Completed 01/22/2025 Meningococcal B Vaccine Aged Out No l onger eligible based on patient's age to complete this topic Meningococcal Vaccine Aged Out No ashley misha eligible based on patient's age to complete this topic RSV Immunizations Under 20 Months Aged Out No longer eligible based on patient's age to complete this topic Medical Devices Implanted Type Area Lasting Room Machine Operator Device Identifier Shelf Expiration Date Model / Serial / Lot Left Dbs Lead Implant- 024 Implanted:Qty: 1 on 02/03/2024 by Marcellus Root MD Lead Implant Left: Brain Vicino LISA [id number] / Deep Brain Stimulator Implant-02/12/20 24 Implanted:Qty: 1 on 02/12/2024 by Marcellus Root MD Stimulator Implant Left: Chest Rapid [employer]ostek [id number] / Description:MR CONDITIONAL A T 1.5 T ONLY, FULL BODY ELIGIBLE , NEEDS REMOTE FULLY CHARGED AND WITH PATIENT TO DO IMPEDANCE CHECK AND TURN OFF STIMULATION, FOLLOW SCAN CONDITIONS IN MOST RECENT MRI TECHNICAL MANUAL FOR BODY PART AND COIL USED Dbs Wilson Hole Plug-02/03/2024 Implanted:Qty: 1 on 02/03/2024 by Marcellus Root MD Brain Rapid [employer]ek [id number] / [id number] / Left Dbs Lead Extansion-2023 Implanted:Qty: 1 on 02/12/2024 by Marcellus Root MD Left: Neck Rapid Diagnostek [id number] / / Procedures Procedure Name Priority Date/Time Associated Diagnosis Comments MRI LUMB SPINE WO CON Routine 01/27/2025 10:39 AM CDT Low back pain, unspecified XR CHEST PA OR AP 1V STAT 01/27/2025 9:18 AM CDT S/P placement of nerve stimulator XR CERV SPINE AP+LAT 2V STAT 01/27/2025 9:18 AM CDT S/P placement of nerve stimulator CT CHEST WO CON Routine 01/15/2025 8:13 AM CDT Aneurysm of the ascending aorta, without rupture from Last 3 Months Results * MRI LUMB SPINE WO CON (01/27/2025 10:39 AM CDT) Anatomical Region Laterality Modality Spine Magnetic Resonan ce 01/29/2025 2:29 PM CDT Impressions 01/29/2025 2:38 PM CDT IMPRESSION: Degenerative disease as above, including moderate spinal canal stenosis at L3-4 and L4-5. Referred By: JAMES LI Interpreted By: Jona Laird MD, 01/29/2025 2:29 PM Narrative 01/29/2025 2:38 PM CDT [facility] [address] [place], [place] [address] EXAMINATION: MRI LUMB SPINE WO CON HISTORY: Low back pain DATE: 01/27/2025 10:11 AM COMPARISON: CT 11/16/2022 TECHNIQUE: Multisequence multiplanar imaging of the lumbar spine. FINDINGS: Alignment is unremarkable. Vertebral body heights are maintained. There is significant degenerative end plate edema about the L2-L3 disc space. There is mild generalized containing bone marrow, nonspecific. Conus medullaris terminates at L1-2 and tapers normally. Small bilateral perineural cysts at L3-4. T11-12: Unremarkable. T12-L1: Unremarkable. L1-L2: Tiny disc bulge. No significant spinal canal narrowing. L2-L3: Disc space height loss with significant disc bulge and mild facet arthritis. There is mild to moderate spinal canal narrowing. No significant neuroforaminal narrowing. L3-L4: Posterior disc osteophyte complex and mild facet arthritis. There is moderate spinal canal narrowing with slight narrowing of the right lateral recess. Mild to moderate right neural foraminal narrowing by a perineural cyst. Mild left neuroforaminal narrowing. L4-L5: Large disc bulge with usus-mf-ugaslrxn centers. There is moderate spinal canal narrowing with narrowing of both lateral recesses. There is moderate right and icse-nx-nedpejni left neuroforaminal narrowing. L5-S1: Disc bulge and moderate to severe facet arthritis. No significant spinal canal narrowing. Moderate left and mild right neural foraminal narrowing. Procedure Note Jona Laird MD - 01/29/2025 [facility] [address] [place], [place] [address] EXAMINATION: MRI LUMB SPINE WO CON HISTORY: Low back pain DATE: 01/27/2025 10:11 AM COMPARISON: CT 11/16/2022 TECHNIQUE: Multisequence multiplanar imaging of the lumbar spine. FINDINGS: Alignment is unremarkable. Vertebral body heights aremaintained. There is significant degenerative end plate edema about theL2-L3 disc space. There is mild generalized containing bone marrow,nonspecific. Conus medullaris terminates at L1-2 and tapers normally.Small bilateral perineural cysts at L3-4. T11-12: Unremarkable. T12-L1: Unremarkable. L1-L2: Tiny disc bulge. No significant spinal canal narrowing. L2-L3: Disc space height loss with significant disc bulge and mild facetarthritis. There is mild to moderate spinal canal narrowing. Nosignificant neuroforaminal narrowing. L3-L4: Posterior disc osteophyte complex and mild facet arthritis. Thereis moderate spinal canal narrowing with slight narrowing of the rightlateral recess. Mild to moderate right neural foraminal narrowing by aperineural cyst. Mild left neuroforaminal narrowing. L4-L5: Large disc bulge with xnib-mq-zuiosues centers. There is moderatespinal canal narrowing with narrowing of both lateral recesses. There ismoderate right and vquv-lb-jabfznsb left neuroforaminal narrowing. L5-S1: Disc bulge and moderate to severe facet arthritis. No significantspinal canal narrowing. Moderate left and mild right neural foraminalnarrowing. IMPRESSION: Degenerative disease as above, including moderate spinal canal stenosis atL3-4 and L4-5. Referred By: JAMES LI Interpreted By: Jona Laird MD, 01/29/2025 2:29 PM us James Li COMPLAINT ANALYST MRI Final Result * XR CHEST PA OR AP 1V (01/27/2025 9:18 AM CDT) Anatomical Region Laterality Modality Chest Radiographic Melody ging 01/27/2025 9:37 AM CDT Impressions 01/27/2025 10:07 AM CDT IMPRESSION: Implanted stimulator device on the left chest with intact single lead. Ordered By: JAMES LI Interpreted By: Ion Oliver, 01/27/2025 9:37 AM Narrative 01/27/2025 10:07 AM CDT [address] [address] IMAGING STUDIES: XR CHEST PA OR AP 1V, XR CERV SPINE CLEAR 1V DATE: 01/27/2025 9:06 AM HISTORY: check stimulator and leads prior to MRI 74-year-old female. Planned MRI lumbar spine without contrast today. Requested evaluation of implanted deep brain stimulator device and lead. COMPARISON: CT chest without contrast 01/15/2025. MRI brain 08/23/2023. DISCUSSION: AP upright view of the chest. AP view of the head and neck at 0933 hours. After discussion with the technologist, a lateral view of the head and neck performed at 0943 hours. Implanted stimulator device on the left chest with intact single lead extending superiorly to the scalp and then inferiorly intracranially (through a craniotomy site) with tip just to the left of midline. Heart size is within normal limits. No acute pulmonary vascular congestion. Stable thoracic aorta (dilated aorta with ascending aorta 4.1 cm on 01/15/2025 CT) 1.2 cm and 1.5 cm rounded calcifications projecting over the left chest which are within the left breast/anterior chest wall soft tissues when correlated with CT. No acute pulmonary infiltrate, pulmonary consolidation, pleural effusion, or pneumothorax. Degenerative changes of the cervical spine to upper lumbar spine. Bilateral shoulder degenerative changes. 6 mm sclerotic lesion in the left humeral head is most likely benign bone island as also noted on 01/15/2025 CT. Procedure Note Ion Oliver MD - 01/27/[address] [address] IMAGING STUDIES: XR CHEST PA OR AP 1V, XR CERV SPINE CLEAR 1VDATE: 01/27/2025 9:06AM HISTORY: check stimulator and leads prior to MRI 74-year-old female.Planned MRI lumbar spine without contrast today. Requested evaluation ofimplanted deep brain stimulator device and lead. COMPARISON: CT chest without contrast 01/15/2025. MRI brain 08/23/2023. DISCUSSION: AP upright view of the chest. AP view of the head and neck at 0933 hours.After discussion with the technologist, a lateral view of the head andneck performed at 0943 hours. Implanted stimulator device on the left chest with intact single leadextending superiorly to the scalp and then inferiorly intracranially(through a craniotomy site) with tip just to the left of midline. Heart size is within normal limits. No acute pulmonary vascularcongestion. Stable thoracic aorta (dilated aorta with ascending aorta 4.1cm on 01/15/2025 CT) 1.2 cm and 1.5 cm rounded calcifications projecting over the left chestwhich are within the left breast/anterior chest wall soft tissues whencorrelated with CT. No acute pulmonary infiltrate, pulmonary consolidation, pleural effusion,or pneumothorax. Degenerative changes of the cervical spine to upper lumbar spine.Bilateral shoulder degenerative changes. 6 mm sclerotic lesion in the lefthumeral head is most likely benign bone island as also noted on 01/15/2025T. IMPRESSION: Implanted stimulator device on the left chest with intact single lead. Ordered By: JAMES LI Interpreted By: Ion Oliver, 01/27/2025 9:37 AM James Li COMPLAINT ANALYST GENERAL IMAGING Final Result * XR CERV SPINE AP+LAT 2V (01/27/2025 9:18 AM CDT) Anatomical Region Laterality Modality Spine Radiographic Melody ging 01/27/2025 9:37 AM CDT Impressions 01/27/2025 10:07 AM CDT IMPRESSION: Implanted stimulator device on the left chest with intact single lead. Ordered By: JAMES LI Interpreted By: Ion Oliver, 01/27/2025 9:37 AM Narrative 01/27/2025 10:07 AM CDT [address] [address] IMAGING STUDIES: XR CHEST PA OR AP 1V, XR CERV SPINE CLEAR 1V DATE: 01/27/2025 9:06 AM HISTORY: check stimulator and leads prior to MRI 74-year-old female. Planned MRI lumbar spine without contrast today. Requested evaluation of implanted deep brain stimulator device and lead. COMPARISON: CT chest without contrast 01/15/2025. MRI brain 08/23/2023. DISCUSSION: AP upright view of the chest. AP view of the head and neck at 0933 hours. After discussion with the technologist, a lateral view of the head and neck performed at 0943 hours. Implanted stimulator device on the left chest with intact single lead extending superiorly to the scalp and then inferiorly intracranially (through a craniotomy site) with tip just to the left of midline. Heart size is within normal limits. No acute pulmonary vascular congestion. Stable thoracic aorta (dilated aorta with ascending aorta 4.1 cm on 01/15/2025 CT) 1.2 cm and 1.5 cm rounded calcifications projecting over the left chest which are within the left breast/anterior chest wall soft tissues when correlated with CT. No acute pulmonary infiltrate, pulmonary consolidation, pleural effusion, or pneumothorax. Degenerative changes of the cervical spine to upper lumbar spine. Bilateral shoulder degenerative changes. 6 mm sclerotic lesion in the left humeral head is most likely benign bone island as also noted on 01/15/2025 CT. Procedure Note Ion Oliver MD - 01/27/[address] [address] IMAGING STUDIES: XR CHEST PA OR AP 1V, XR CERV SPINE CLEAR 1VDATE: 01/27/2025 9:06AM HISTORY: check stimulator and leads prior to MRI 74-year-old female.Planned MRI lumbar spine without contrast today. Requested evaluation ofimplanted deep brain stimulator device and lead. COMPARISON: CT chest without contrast 01/15/2025. MRI brain 08/23/2023. DISCUSSION: AP upright view of the chest. AP view of the head and neck at 0933 hours.After discussion with the technologist, a lateral view of the head andneck performed at 0943 hours. Implanted stimulator device on the left chest with intact single leadextending superiorly to the scalp and then inferiorly intracranially(through a craniotomy site) with tip just to the left of midline. Heart size is within normal limits. No acute pulmonary vascularcongestion. Stable thoracic aorta (dilated aorta with ascending aorta 4.1cm on 01/15/2025 CT) 1.2 cm and 1.5 cm rounded calcifications projecting over the left chestwhich are within the left breast/anterior chest wall soft tissues whencorrelated with CT. No acute pulmonary infiltrate, pulmonary consolidation, pleural effusion,or pneumothorax. Degenerative changes of the cervical spine to upper lumbar spine.Bilateral shoulder degenerative changes. 6 mm sclerotic lesion in the lefthumeral head is most likely benign bone island as also noted on 01/15/2025T. IMPRESSION: Implanted stimulator device on the left chest with intact single lead. Ordered By: JAMES LI Interpreted By: Ion Oliver, 01/27/2025 9:37 AM James Li COMPLAINT ANALYST GENERAL IMAGING Final Result * CT CHEST WO CON (01/15/2025 8:13 AM CDT) Anatomical Region Laterality Modality Chest Computed Tomogra phy 01/15/2025 8:25 AM CDT Impressions 01/15/2025 8:33 AM CDT IMPRESSION: 1. Stable aortic aneurysm measuring 4 cm. Referred By: DEAN VALADEZ Interpreted By: Arley Barba MD, 01/15/2025 8:25 AM Narrative 01/15/2025 8:33 AM CDT [address] [address] EXAMINATION: CT Chest 01/15/2025 INDICATION: ANEURYSM; GATED STUDY pt. stated no complaints just a follow up. COMPARISON(S): 06/22/2024. TECHNIQUE: CT acquisition of the chest. Coronal and sagittal reformatted images along with an axial MIP provided from the source data. Coronal and sagittal reformatted images were obtained from the source data. A dose lowering technique was utilized for this procedure which may include but is not limited to dose reduction techniques, automated exposure control, and/or the use of iterative reconstruction in accordance with ALARA principle. Contrast: No intravenous contrast. FINDINGS: Aorta measurements: Sinuses of Valsalva level: 3.9 cm Sinotubular junction: 3.6 cm. Midportion ascending aortic aneurysm: 4.1 cm. Proximal aortic arch: 3.7 cm. Mid aortic arch: 3 cm Descending thoracic aorta: 2.9 cm. Atherosclerosis, coronary calcifications. Leaflet and annulus calcifications of the aortic valve. Centrilobular pulmonary emphysema. No pulmonary nodule or mass. No pulmonary consolidation. No pulmonary edema. Small secretions in airways. No pneumothorax or pleural effusions. On soft tissue windows, no lymphadenopathy. Heart size normal. No pericardial effusion. Left chest implanted generator, with lead coursing in the left neck. No pulmonary artery embolism. Limited evaluation of the upper abdomen demonstrates no acute abnormality. Hyperplastic adrenals. Small left kidney stones. On bone windows, no suspicious skeletal lesion or acute compression fracture deformity. Scattered degenerative changes of the spine. Calcifications in the bilateral breasts. Procedure Note Arley Barba MD - 01/15/[address] [address] EXAMINATION: CT Chest 01/15/2025 INDICATION: ANEURYSM; GATED STUDY pt. stated no complaints just a follow up. COMPARISON(S): 06/22/2024. TECHNIQUE: CT acquisition of the chest. Coronal and sagittal reformattedimages along with an axial MIP provided from the source data. Coronal andsagittal reformatted images were obtained from the source data. A doselowering technique was utilized for this procedure which may include butis not limited to dose reduction techniques, automated exposure control,and/or the use of iterative reconstruction in accordance with ALARAprinciple. Contrast: No intravenous contrast. FINDINGS: Aorta measurements: Sinuses of Valsalva level: 3.9 cm Sinotubular junction: 3.6 cm. Midportion ascending aortic aneurysm: 4.1 cm. Proximal aortic arch: 3.7 cm. Mid aortic arch: 3 cm Descending thoracic aorta: 2.9 cm. Atherosclerosis, coronary calcifications. Leaflet and annulus calcifications of the aortic valve. Centrilobular pulmonary emphysema. No pulmonary nodule or mass. No pulmonary consolidation. No pulmonaryedema. Small secretions in airways. No pneumothorax or pleural effusions. On soft tissue windows, no lymphadenopathy. Heart size normal. No pericardial effusion. Left chest implantedgenerator, with lead coursing in the left neck. No pulmonary artery embolism. Limited evaluation of the upper abdomen demonstrates no acute abnormality.Hyperplastic adrenals. Small left kidney stones. On bone windows, no suspicious skeletal lesion or acute compressionfracture deformity. Scattered degenerative changes of the spine. Calcifications in the bilateral breasts. IMPRESSION: 1. Stable aortic aneurysm measuring 4 cm. Referred By: DEAN VALADEZ Interpreted By: Arley Barba MD, 01/15/2025 8:25 AM Dean Valadez MD CT Final Result from Last 3 Months Insurance MEDICARE [facility] Advance Directives * Full Code (Latest Code Status on File) Date Activated Date Inactivated Comments 10/20/2024 1:26 PM Care Teams Certified Midwife Relationship Specialty Start Date End Date Roxie Meadows MD [address] [place] [id number] PCP - General FAMILY PRACTICE 04/01/20
--- OUTSIDE RECORDS SUMMARY | 2025-03-14 12:57 | XMS_ITS | Clinical Summary ---
Author Organization [facility] Address [address] [place] [address] Phone Care Team Providers Care Fire Management Officer Name Role Phone Roxie Meadows MD Primary Care Provider [phone] Allergies Active Allergy Reactions Criticality Noted Date [...] Date Smoking Tobacco: Every Day Cigarettes 1.5 56.3 Started: 11/11/1968 Smokeless Tobacco: Never Tobacco Cessation:Ready [...] Cologuard 1997 Immunochemical Fecal Occult Blood 1997 Medicare Initial AWV [id number] 03/10/2018 Influenza Immunization (#1) 2025 09/3 , 03/21/2023, 03/29/2022, Additional history exists SARS-COV-2 Immunization ( season) 2025 03/09/2024, 03/21/2023, 03/02/2022, Additional history exists Lung Cancer Screening 06/22/2025 [...] patient's age to complete this topic Insurance .[address] [id number] MEDICARE MEDICARE [facility] Advance Directives Documents on File Type Date Recorded Patient Business Records Manager Expl anation Power of Pharmaceutical Worker for Health Care 02/18/2019 4:20 PM POA FOR HEALTH CARE Care Teams Fire Management Officer Relationship Specialty Start Date End Date Roxie Meadows MD [address] [place] [address] PCP - General Family Medicine 09/21/24
--- OUTSIDE RECORDS SUMMARY | 2025-03-14 12:57 | XMS_ITS | Clinical Summary ---
Author Organization [facility] Address [address] [place] [address] Care Team Providers Care Adjunct Psychology Faculty Member Name Role Phone Roxie Meadows MD Primary Care Provider [phone] Source Comments [facility],non-owned Affiliates and Associated Physician Practices is amultiple site organization consisting of ambulatory clinics and hospital sitesin [place], [place], [place] and [place]. This disclosure is being madepursuant to the Care Everywhere program and may not contain all information available regarding this patient. Last updated 18.[facility] Allergies Active Allergy Reactions Criticality Noted Date [...] and heating? Not hard at all 02/03/2024 [facility] [place] Occupat ional Health - Occupational Stress [...] place to sleep or slept in a skilled nursing (including now)? No 02/03/2024 Comments No Sex and Gender Information Value Date Recorded Sex Assigned at Not on file Legal Sex Female 10:43 AM CDT Gender Identity Not on file Sexual Orientation Not on file Last Filed Vital Signs Vital Sign Reading Time Taken Comments Blood Pressure 117/66 07/15/2024 7:58 AM DENTAL BILLER Pulse 95 07/15/2024 7:58 AM DENTAL BILLER Temperature 37.1 C (98.7 F) 06/18/2024 10:06 AM DENTAL BILLER Respiratory Rate 18 06/18/2024 10:06 AM DENTAL BILLER Oxygen Saturation 100% 07/15/2024 7:58 AM DENTAL BILLER Inhaled Oxygen Concentration - - Weight 50.4 kg (111 lb 3.2 oz) 07/15/2024 7:58 A M DENTAL BILLER Height 162.6 cm (5' 4) 07/15/2024 7:58 AM DENTAL BILLER Body Mass Index 19.09 07/15/2024 7:58 AM DENTAL BILLER Plan of Treatment Health Maintenance Due Date [...] - Risk 60-74 years 1-dose series) 2012 DEPRESSION SCREENING 06/10/2024 COVID-19 VACCINE ( season) 2025 03/02/2022, 10/06/2021, 04/10/2021, Additional history exists INFLUENZA VACCINE (#1) 2025 9, 04/09/2018, 04/06/2018, [...] this topic Medical Devices Implanted Type Area Plate Stacker Hand Device Identifier Shelf Expiration Date Model / Serial / Lot Vercise [employer]ia Directional Lead Kit 45 Cm 8 Contact Dbs Implanted:Qty: 1 on 02/03/2024 by Marcellus Root MD at [facility] Left: Cranial [employer] 12/02/2025 [id number] / [id number] / N/A Kit Nrstm Dbs Bur Hl Plg Strl Implanted:Qty: 1 on 02/03/2024 by Marcellus Root MD at [facility] Left: Cranial [employer] Scimed [id number] / / [id number] Aren Kit Pls Gntr Vercise Genus R16 - [id number] Implanted:Qty: 1 on 02/12/2024 by Marcellus Root MD at [facility] Left: Chest [employer] Adalberto 09/18/2025 [id number] BILL ONLY / [id number] / [id number] Kit Nrstm 55cm Ld Xtn 8 Cntct Implanted:Qty: 1 on 02/12/2024 by Marcellus Root MD at [facility] Left: Neck [employer] Scimed [id number] / / Explanted Type Area Plate Stacker Hand Device Identifier Shelf Expiration Date Model / Serial / Lot Wire K 1.6mm 229mm 2 End Troc Pnt Sty 1 - Sn/A Explanted:Qty: 1 on 02/03/2024 at [facility] [employer] 08/22/2031 [id number] / N/A / [id number] Nrstm Impl Bst Sci Or Cbl Pshbtn 8 Cntct Explanted:Qty: 1 on 02/03/2024 at [facility] Left: Cranial [employer] [id number] / / Insurance [facility] MEDICARE [facility] MEDICARE [facility] [place] [address] Advance Directives * Full Code (Latest Code Status on File) Date Activated Date Inactivated Comments 02/03/2024 12:51 PM 02/04/2024 11:50 AM Care Teams Adjunct Psychology Faculty Member Relationship Specialty Start Date End Date Roxie Meadows MD [address] [place] [address] [place] [address] PCP - General Family Medicine 09/11/23
--- NOTE | 2025-03-14 13:06 | ECG_ITS ---
Test Date: 2025-03-14 13:20:42 Measurements Intervals Verner Rate: 98 P: 74 NM: 176 QRS: -20 QRSD: 86 T: 71 QT: 353 QTc: 453 Interpretive Statements SINUS RHYTHM POSSIBLE RIGHT ATRIAL ENLARGEMENT POSSIBLE LEFT ATRIAL ENLARGEMENT INFERIOR INFARCT, AGE INDETERMINATE BASELINE ARTIFACT- I, III, AVR, AVL, AVF BORDERLINE ECG No previous ECG available for comparison Electronically Signed On 03-14-2025 13:53:30 CDT by Theo Yanez D.O.
[2025-03-14 13:33] LABS: Hematocrit 40.6 % (37.0-47.0); Hemoglobin 13.4 g/dL (12.0-15.0); Immature Granulocyte Percent A 0.6 % (0-0.5); Lymphocytes Absolute Auto 0.80 K/mm3 (0.9-3.2); Mean Corpuscular HGB Conc 33.0 g/dl (32-36); Mean Corpuscular Hemoglobin 33.3 pg (26-34); Mean Corpuscular Volume 101.0 fl (80-100); Nucleated Red Blood Cells Absolute Auto 0.000 K/mm3 (0.0-0.012); Nucleated Red Blood Cells Perc 0.0 % (0.0-0.2); Platelet Count Result 296 k/mm3 (150-375); Red Blood Count 4.02 M/mm3 (4.2-5.4); White Blood Count 14.0 K/mm3 (4.5-10.0)
[2025-03-14 13:44] LABS: INR 0.9; Prothrombin Time 12.6 Seconds (11.1-14.7)
[2025-03-14 13:45] LABS: Partial Thromboplastin Time 26.3 Seconds (22.3-36.8)
[2025-03-14 13:56] LABS: Alanine Aminotransferase 10 U/L (6-35); Albumin Level 4.7 g/dL (3.5-5.1); Alkaline Phosphatase 68 U/L (38-126); Anion Gap 12 mmol/L (4-12); Aspartate Amino Transferase 33 U/L (14-36); Bilirubin,Total 0.6 mg/dL (0.2-1.3); Blood Urea Nitrogen 16 mg/dL (7-17); Calcium 10.6 mg/dL (8.4-10.2); Carbon Dioxide 20 mmol/L (22-30); Chloride 101 mmol/L (98-107); Estimated CRCL calculation 43 ml/min; Estimated Glomerular Filt Rate > 60; Glucose 128 mg/dL (65-110); Lipase 30 U/L (23-300); Potassium 3.7 mmol/L (3.4-5.0); Sodium 133 mmol/L (137-145); Total Protein 7.9 g/dL (6.3-8.2)
--- NOTE | 2025-03-14 14:04 | ED.CHESTPAIN ---
HPI - Chest Pain General Chief Complaint: Chest Pain <PACHECO Gresham Last Filed: 03/14/25 20:04> Stated Complaint: chest pain <PACHECO Gresham Last Filed: 03/14/25 20:04> Time Seen by Provider: 03/14/25 14:00 <PACHECO Gresham Last Filed: 03/14/25 20:04> Source: patient <PACHECO Gresham Last Filed: 03/14/25 20:04> Mode of arrival: ambulatory <PACHECO Gresham Last Filed: 03/14/25 20:04> Limitations: no limitations <PACHECO Grseham Last Filed: 03/14/25 20:04> History of Present Illness HPI narrative: Patient is a 74 y/o female, with PMH of Parkinson's Disease, depression/anxiety, AAA, who presents to the ED via EMS with report of CP. Patient reports she was walking out of a store around 11:00 a.m. this morning when she had a sudden onset of severe crushing chest pain in her midsternal chest radiating through to her back and across her upper shoulders. She states she felt extremely weak, SOB, and fatigued and like she was going to pass out. EMS was called. She states EMS administered ASA and NTG spray which did improve pain slightly. She complains of midsternal chest tightness radiating through to her back currently but denies ongoing crushing chest pain. Denies history of similar pain. Does have history of AAA, follows at [facility]. States she had her biannual imaging of this recently which was stable, states it is just over 4cm. <PACHECO Gresham Last Filed: 03/14/25 20:04> Related Data Home Medications: Home Medications ?Medication ?Instructions ?Recorded ?Confirmed ?Last Taken ?Type acetaminophen 650 mg 650 mg PO Q12H 10/11/20 03/14/25 03/14/25 History tablet,extended release (Tylenol 8 Hour) carbidopa ER 50 mg-levodopa 200 mg 1 tablet PO QHS 10/11/20 03/14/25 03/13/25 History tablet,extended release cholecalciferol (vitamin D3) 25 2,000 unit PO DAILY 02/01/22 03/14/25 03/14/25 History mcg (1,000 unit) capsule lorazepam 0.5 mg tablet 0.5 mg PO TID PRN Anxiety 02/01/22 03/14/25 03/14/25 History carbidopa ER 25 mg-levodopa 100 mg 1 tablet PO TID 03/23/24 03/15/25 03/14/25 13:30 History tablet,extended release zoledronic acid 5 mg/100 mL in 1 ea IV DIRECTED 03/23/24 03/14/25 09/04/23 History mannitol 5 %-water intravenous piggybck (Reclast) tramadol 50 mg tablet 50 mg PO DAILY PRN pain 03/14/25 03/14/25 03/13/25 History carbidopa 25 mg-levodopa 100 mg 1 tablet PO QID 03/15/25 03/15/25 Unknown History tablet <Margaret Henderson PA-C - Last Filed: 03/14/25 20:04> Allergies/Adverse Reactions: Allergies Allergy/AdvReac Type Severity Reaction Status Date / Time gentamicin Allergy Intermediate Swelling Verified 03/14/25 17:51 Iodinated Contrast Media Allergy Hives Verified 03/14/25 17:51 <Margaret Henderson PA-C - Last Filed: 03/14/25 20:04> Review of Systems Review of Systems: All systems reviewed & are unremarkable except as noted in HPI. <PACHECO Gresham Last Filed: 03/14/25 20:04> All systems reviewed & are unremarkable except as noted in HPI and below <PACHECO Gresham Last Filed: 03/14/25 20:04> [facility] Past Medical History Medical History: Medical History AAA (abdominal aortic aneurysm) Hypotension Depression Anxiety History of colon polyps Parkinson's disease Chronic idiopathic constipation Kidney stone Smoking addiction Hyperparathyroidism Vitamin D deficiency Osteoporosis GERD (gastroesophageal reflux disease) IBS (irritable bowel syndrome) <PACHECO Gresham Last Filed: 03/14/25 20:04> Surgical History Surgical History: Surgical History Status post deep brain stimulator placement 02/03/24 and 02/12/24 S/P endometrial ablation History of appendectomy 2019 <PACHECO Gresham Last Filed: 03/14/25 20:04> Family History Family History: Family History Father Family history of malignant neoplasm of stomach Family history of malignant neoplasm Cancer Sibling Family history of malignant melanoma Son Cancer Other Alcoholism <PACHECO Gresham Last Filed: 03/14/25 20:04> Social History Social History: Social History Smoking packs per day: 1.5 Smoking cigarettes per day: 30.0 Years smoked: 50 Smoking pack-years: 75.00 Smoking status: Current every day smoker Tobacco type: cigarettes Second hand tobacco smoke exposure: Yes Alcohol intake: never Alcohol use details: rarely Substance use: never Substance use type: does not use Do You Feel Safe in your Home?: Yes Lack of Transportation: No Lack of Food: Never True Current Housing: I Have Housing Concerned About Future Housing: No Difficulty Paying Gas/Electric Bills: No Difficulty Paying for Meds: No Currently Unemployed: No Education: Associate Degree Difficulty w/ Childcare or Family Care: No Living arrangements: with family Spiritual care concerns: No <PACHECO Gresham Last Filed: 03/14/25 20:04> Exam Narrative: GENERAL: Well appearing, thin, non-toxic, in no acute distress. HEAD: Normocephalic, atraumatic. RESPIRATORY: Airway patent, respirations nonlabored. Clear to auscultation bilaterally, no rales, rhonchi, wheezing. No focal lung sounds. CARDIOVASCULAR: Regular rate and rhythm without murmurs, rubs, or gallops. ABDOMINAL: Soft, nontender, nondistended. Normoactive BS. No pulsatile masses. MUSCULOSKELETAL: Moves all extremities. No gross deformities. No peripheral edema. SKIN: Warm, dry, normal color. NEURO: A&O X3. Speech clear. Cranial nerves II-XII grossly intact. Steady gait. No ataxic movements. PSYCHIATRIC: Appropriate mood and affect. Normal interaction. <Margaret Henderson PA-C - Last Filed: 03/14/25 20:04> Course KELP OR SEAGRASS GATHERER/PA Physician Supervision This visit was performed by both a physician and an APC. I performed all aspects of the MDM as documented. <Dwayne Ayoub MD - Last Filed: 03/15/25 18:00> Vital Signs Vital signs: Vital Signs Temperature 98.4 F 03/14/25 13:29 Pulse Rate 97 03/14/25 13:29 Respiratory Rate 20 03/14/25 13:29 Blood Pressure 117/68 03/14/25 13:29 Pulse Oximetry 98 03/14/25 13:29 Oxygen Delivery Room Air 03/14/25 13:29 Temperature 98 F 03/15/25 15:56 Pulse Rate 79 03/15/25 16:00 Respiratory Rate 15 03/15/25 15:56 Blood Pressure 119/65 03/15/25 15:56 Pulse Oximetry 98 03/15/25 15:56 Oxygen Delivery Room Air 03/15/25 04:00 Oxygen Flow Rate 2 03/14/25 16:13 Fraction of Inspired Oxygen 28 03/14/25 16:13 <Margaret Henderson PA-C - Last Filed: 03/14/25 20:04> Vital Signs Temperature 98.4 F 03/14/25 13:29 Pulse Rate 97 03/14/25 13:29 Respiratory Rate 20 03/14/25 13:29 Blood Pressure 117/68 03/14/25 13:29 Pulse Oximetry 98 03/14/25 13:29 Oxygen Delivery Room Air 03/14/25 13:29 Temperature 98 F 03/15/25 15:56 Pulse Rate 79 03/15/25 16:00 Respiratory Rate 15 03/15/25 15:56 Blood Pressure 119/65 03/15/25 15:56 Pulse Oximetry 98 03/15/25 15:56 Oxygen Delivery Room Air 03/15/25 04:00 Oxygen Flow Rate 2 03/14/25 16:13 Fraction of Inspired Oxygen 28 03/14/25 16:13 <Dwayne Ayoub MD - Last Filed: 03/15/25 18:00> MDM - Chest Pain MDM Narrative Medical decision making narrative: Patient presented to ED with episode of crushing chest pain through to her back that began around 11:00 a.m.. No previous history of cardiac disease, but does have history of AAA. Reports pain is improved currently, but still having chest tightness. Vital signs are stable upon arrival here. EKG with sinus rhythm, some very mild depression in lateral leads, no STEMI. Baseline troponin resulted elevated to 1.87. Chest x-ray is clear. Given report of symptoms with history of AAA, decision was made to emergently pre treat patient for contrast allergy to obtain imaging of aneurysm and ensure no rupture given life-threatening nature. I did have a long discussion with patient about this and she is in agreement. Given solu-medrol/benadryl. CTA of chest/abd/pelvis w/o evidence of dissection. Does show aneurysm of 4.4cm ascending aorta which is consistent with patient's most recent imaging/size. Patient tolerated contrast well, no reaction/hives/itching/resp distress Discussed case with Dr. Caballero, non-interventional cardiology, recommended discussion with interventional cardiology for more emergent cath. Discussed case with Dr. Montoya, Interventional Cardiology, recommended to repeat EKG and troponin now. Call back. Repeat EKG at [address] shows changes [address] mild [address] elevation in inferior leads. Patient reports 6/10 chest tightness currently. STEMI was activated. Was notified by house real estate legal secretary that key filer is on his way in with the quality assurance qa lab analyst team to take patient. Patient is in agreement. Was given 2mg Morphine dose and reported resolution of chest pain. I did not speak to key filer again on phone. Patient did receive ASA by EMS, but did not receive heparin/Brilinta in the ED. medical lab specialist nurse was notified of this. 1644- Patient left ED to quality assurance qa lab analyst. <Margaret Henderson PA-C - Last Filed: 03/14/25 20:04> Medical Records Data Attestation: I reviewed the patient's medical records. <Margaret Henderson PA-C - Last Filed: 03/14/25 20:04> Lab Data Attestation: I reviewed the patient's lab results. <Margaret Henderson PA-C - Last Filed: 03/14/25 20:04> Result diagrams: 03/15/25 08:34 03/15/25 08:34 <Margaret Henderson PA-C - Last Filed: 03/14/25 20:04> Labs: Lab Results 03/14/25 03/14/25 Range/Units 13:26 15:41 WBC 14.0 H (4.5-10.0) K/mm3 RBC 4.02 L (4.2-5.4) M/mm3 Hgb 13.4 (12.0-15.0) g/dL Hct 40.6 (37.0-47.0) % MCV 101.0 H (80-100) fl MCH 33.3 (26-34) pg MCHC 33.0 (32-36) g/dl RDW 13.2 (11.5-14.5) % Plt Count 296 (150-375) k/mm3 MPV 9.2 (7.4-10.4) fl Immature Gran % (Auto) 0.6 H (0-0.5) % Neut % (Auto) 89.5 H (45.5-73.1) % Lymph % (Auto) 5.7 L (18.3-44.2) % Heard % (Auto) 3.9 (2.6-8.5) % Eos % (Auto) 0.0 (0-4.4) % Baso % (Auto) 0.3 (0.2-1.2) % Lymph # (Auto) 0.80 L (0.9-3.2) K/mm3 Heard # (Auto) 0.6 (0.1-0.6) K/mm3 Eos # (Auto) 0.0 (0-0.3) K/mm3 Baso # (Auto) 0.0 (0.0-0.1) K/mm3 Abs Immat Gran (auto) 0.08 H (0.00-0.031) K/mm3 Absolute Neuts (auto) 12.5 H (1.3-6.7) K/mm3 Absolute Nucleated RBC 0.000 (0.0-0.012) K/mm3 Nucleated RBC % 0.0 (0.0-0.2) % PT 12.6 (11.1-14.7) Seconds INR 0.9 APTT 26.3 (22.3-36.8) Seconds Sodium 133 L (137-145) mmol/L Potassium 3.7 (3.4-5.0) mmol/L Chloride 101 (98-107) mmol/L Carbon Dioxide 20 L (22-30) mmol/L Anion Gap 12 (4-12) mmol/L BUN 16 (7-17) mg/dL Creatinine 0.70 (0.7-1.0) mg/dL Estim Creat Clear Calc 43 ml/min Estimated GFR > 60 (59 - ) Glucose 128 H (65-110) mg/dL Calcium 10.6 H (8.4-10.2) mg/dL Total Bilirubin 0.6 (0.2-1.3) mg/dL AST 33 (14-36) U/L ALT 10 (6-35) U/L Alkaline Phosphatase 68 (38-126) U/L Troponin I 1.870 H* 4.290 H* D (0.000-0.034) ng/mL Total Protein 7.9 (6.3-8.2) g/dL Albumin 4.7 (3.5-5.1) g/dL Lipase 30 (23-300) U/L <Margaret Henderson PA-C - Last Filed: 03/14/25 20:04> Lab Results 03/14/25 03/14/25 Range/Units 13:26 15:41 WBC 14.0 H (4.5-10.0) K/mm3 RBC 4.02 L (4.2-5.4) M/mm3 Hgb 13.4 (12.0-15.0) g/dL Hct 40.6 (37.0-47.0) % MCV 101.0 H (80-100) fl MCH 33.3 (26-34) pg MCHC 33.0 (32-36) g/dl RDW 13.2 (11.5-14.5) % Plt Count 296 (150-375) k/mm3 MPV 9.2 (7.4-10.4) fl Immature Gran % (Auto) 0.6 H (0-0.5) % Neut % (Auto) 89.5 H (45.5-73.1) % Lymph % (Auto) 5.7 L (18.3-44.2) % Heard % (Auto) 3.9 (2.6-8.5) % Eos % (Auto) 0.0 (0-4.4) % Baso % (Auto) 0.3 (0.2-1.2) % Lymph # (Auto) 0.80 L (0.9-3.2) K/mm3 Heard # (Auto) 0.6 (0.1-0.6) K/mm3 Eos # (Auto) 0.0 (0-0.3) K/mm3 Baso # (Auto) 0.0 (0.0-0.1) K/mm3 Abs Immat Gran (auto) 0.08 H (0.00-0.031) K/mm3 Absolute Neuts (auto) 12.5 H (1.3-6.7) K/mm3 Absolute Nucleated RBC 0.000 (0.0-0.012) K/mm3 Nucleated RBC % 0.0 (0.0-0.2) % PT 12.6 (11.1-14.7) Seconds INR 0.9 APTT 26.3 (22.3-36.8) Seconds Sodium 133 L (137-145) mmol/L Potassium 3.7 (3.4-5.0) mmol/L Chloride 101 (98-107) mmol/L Carbon Dioxide 20 L (22-30) mmol/L Anion Gap 12 (4-12) mmol/L BUN 16 (7-17) mg/dL Creatinine 0.70 (0.7-1.0) mg/dL Estim Creat Clear Calc 43 ml/min Estimated GFR > 60 (59 - ) Glucose 128 H (65-110) mg/dL Calcium 10.6 H (8.4-10.2) mg/dL Total Bilirubin 0.6 (0.2-1.3) mg/dL AST 33 (14-36) U/L ALT 10 (6-35) U/L Alkaline Phosphatase 68 (38-126) U/L Troponin I 1.870 H* 4.290 H* D (0.000-0.034) ng/mL Total Protein 7.9 (6.3-8.2) g/dL Albumin 4.7 (3.5-5.1) g/dL Lipase 30 (23-300) U/L <Dwayne Ayoub MD - Last Filed: 03/15/25 18:00> Imaging Data Attestation: I personally reviewed and interpreted this imaging study as follows: <Margaret Henderson PA-C - Last Filed: 03/14/25 20:04> Radiologist's impression: ITS Impressions Chest X-Ray 03/14/25 13:43 IMPRESSION: 1. No acute cardiopulmonary findings. Chest/Abdomen/Pelvis CTA 03/14/25 15:14 IMPRESSION: 1. No aneurysm or dissection identified. No acute process. 2. Incidental findings above <Margaret Henderson PA-C - Last Filed: 03/14/25 20:04> ECG Data EKG #1: Attestation: I personally reviewed and interpreted this ECG as follows: <Margaret Henderson PA-C - Last Filed: 03/14/25 20:04> ECG completion date: 03/14/25 <Margaret Henderson PA-C - Last Filed: 03/14/25 20:04> ECG completion time: 13:20 <Margaret Henderson PA-C - Last Filed: 03/14/25 20:04> EKG Interpretation: normal rate (98), sinus rhythm and non-specific ST changes <Margaret Henderson PA-C - Last Filed: 03/14/25 20:04> Discharge Plan Discharge Clinical Impression: ST elevation (STEMI) myocardial infarction Qualifiers: Involved coronary artery: unspecified coronary artery Qualified Code(s): I21.3 - ST elevation (STEMI) myocardial infarction of unspecified site AAA (abdominal aortic aneurysm) Qualifiers: Abdominal aorta location: unspecified Presence of rupture: without rupture Qualified Code(s): I71.40 - Abdominal aortic aneurysm, without rupture, unspecified <Margaret Henderson PA-C - Last Filed: 03/14/25 20:04> Patient Disposition: Still a Patient <Margaret Henderson PA-C - Last Filed: 03/14/25 20:04> Condition: Serious <Margaret Henderson PA-C - Last Filed: 03/14/25 20:04>
[2025-03-14 14:05] LABS: Troponin I 1.870 ng/mL (0.000-0.034)
--- OUTSIDE RECORDS SUMMARY | 2025-03-14 14:08 | XMS_ITS | Encounter Summary ---
Author Organization [facility] Address [facility] [place] [address] Care Team Providers Care Licensed Esthetician Name Role Phone Roxie Meadows MD Primary Care Provider [phone] Encounter Details Date Type Department Care Team (Late st Contact Info) Description 06/07/2023 MyChart Message Enc [facility] Medical Group Multispecialty Care - [facility] [address] [facility], [address] [place] [address] Wilner Rosario MD 3 [place] [address] dyskinesia Social History Tobacco Use Types Packs/Day [...] Sex Assigned at Female 08/14/2024 5:42 AM SCIENTIFIC LABORATORY SUPERVISOR Legal Sex Female 7:58 AM CDT Gender Identity Not on file Sexual Orientation Not on file documented as of this encounter Plan of Treatment Upcoming Encounters Date Type Department Care Team (Late st Contact Info) Description 03/16/2025 11:15 AM CDT Appointment [facility] 5 [place] [address] Tho Horner, PT [address] [place] [address] James Mcduffie MD [address] [facility] [address] [place] [address] [place] Sidhu, GERIATRIC AIDE [address] [place] [address] 03/17/2025 11:40 AM CDT [facility] [address], [address] [phone] Wilner Rosario MD 3 [place] [address] 03/18/2025 10:45 AM CDT Appointment [facility] [address] [place] [address] Tho Horner, PT [address] [place] [address] 05/04/2025 2:00 PM SCIENTIFIC LABORATORY SUPERVISOR Office Visit [facility] [address] [phone] Ac Connelly MD [address] [address] 06/23/2025 11:40 AM SCIENTIFIC LABORATORY SUPERVISOR [facility] - [facility] [address] [facility], [address] [phone] Wilner Rosario MD 3 [place] [address] 08/09/2025 9:30 AM SCIENTIFIC LABORATORY SUPERVISOR Appointment [facility] [address] [place] [address] Nicholas Simms MD Three [facility] [address] [place] [address] 03/07/2026 10:15 AM CDT Office Visit [facility] [address] [place] [address] Nicholas Simms MD Three [facility] [address] [place] [address] 05/10/2026 9:00 AM SCIENTIFIC LABORATORY SUPERVISOR Appointment [facility] [address] [place] [address] Fam Valadez MD 3 [facility] [address] [place] [address] 05/19/2026 10:30 AM SCIENTIFIC LABORATORY SUPERVISOR Office Visit [facility] THREE [facility] [address] [place] [address] Fam Valadez MD 3 [facility] [address] [place] [address] documented as of this encounter Visit Diagnoses Not on filedocumented in this encounter Care Teams Licensed Esthetician Relationship Specialty Start Date End Date Roxie Meadows MD [address] [place] [phone] PCP - General FAMILY PRACTICE 04/01/20 documented as of this encounter
--- OUTSIDE RECORDS SUMMARY | 2025-03-14 14:08 | XMS_ITS | Encounter Summary ---
Author Organization [facility] Address Critical access hospital6 [place] [address] Care Team Providers Care Sinker Puller Name Role Phone Roxie Meadows MD Primary Care Provider Encounter Details Date Type Department Care Team (Late st Contact Info) Description 09/02/2023 MyChart Message Enc [facility] Medical Group Multispecialty Care - [facility] [address] [facility], [address] [place] [address] Wilner Rosario MD 3 [place] [address] shoulder inhury Social History Tobacco Use Types [...] Sex Assigned at Female 08/14/2024 5:42 AM HEAVY CLEANER Legal Sex Female 7:58 AM CDT Gender Identity Not on file Sexual Orientation Not on file documented as of this encounter Progress Notes * Ama Smith RN - 09/03/2023 7:27 AM CDT Please advise documented in this encounter Plan of Treatment Upcoming Encounters Date Type Department Care Team (Late st Contact Info) Description 03/16/2025 11:15 AM CDT Appointment [facility] [address] [place] [address] Tho Horner, PT [address] [place] [address] James Mcduffie MD [address], [place] [address] [place] Sidhu, TALENT PARTNER [address] [facility] [place] [address] 03/17/2025 11:40 AM CDT [facility] - [address], [address] [address] Wilner Rosario MD [address] [place] [address] 03/18/2025 10:45 AM CDT Appointment [facility] [address] [place] [address] Tho Horner, PT [address] [place] [address] 05/04/2025 2:00 PM HEAVY CLEANER Office Visit [facility] [address] [phone] Ac Connelly MD [address] [address] 06/23/2025 11:40 AM HEAVY CLEANER [facility] [address] [facility], [address] [place] [address] Wilner Rosario MD 3 [facility] [address] 08/09/2025 9:30 AM HEAVY CLEANER Appointment [facility] Non Invasive Cardiology ONE [facility] [place] [address] Nicholas Simms MD Three [facility] [address] [place] [address] 03/07/2026 10:15 AM CDT Office Visit [facility] [address] [place] [address] Nicholas Simms MD [address] [facility] [address] [place] [address] 05/10/2026 9:00 AM HEAVY CLEANER [facility] [facility] [place] [address] Fam Valadez MD 3 [facility] [address] [place] [address] 05/19/2026 10:30 AM HEAVY CLEANER Office Visit [facility] [address] [facility] [place] [address] Fam Valadez MD 3 [facility] [address] [place] [address] documented as of this encounter Visit Diagnoses Not on filedocumented in this encounter Care Teams Sinker Puller Relationship Specialty Start Date End Date Roxie Meadows MD [address] [place], [place] [address] [address] PCP - General FAMILY PRACTICE 04/01/20 documented as of this encounter
--- OUTSIDE RECORDS SUMMARY | 2025-03-14 14:08 | XMS_ITS | Clinical Summary ---
Author Organization [facility] Address [facility] [place] [address] Care Team Providers Care Bareback Rider Name Role Phone Roxie Meadows MD Primary Care Provider [phone] Allergies Active Allergy Reactions Criticality Noted Date [...] 04/19/2017 Overview (01/03/2023): Description: Reassured Parkinson's disease ([facility]) 03/13/2017 Overview (11/01/2023): Last Assessment & Plan: [...] - 03/11/2025 11:59 PM CDT Hospital Encounter [facility] [address] [place] [address] Tho Horner, PT Back Pain Discharge Disposition: Home or Self Care (Routine Discharge) 03/11/2025 Travel 03/08/2025 12:52 PM CDT - 03/08/2025 11:59 PM CDT Hospital Encounter [facility] [address] [place] [address] Tho Horner, PT Back Pain Discharge Disposition: Home or Self Care (Routine Discharge) 03/08/2025 10:00 AM CDT Office Visit [facility] [address] [place] [address] Nicholas Simms MD Hypertension (1yr) 03/08/2025 Orders Only [facility] [address] [facility] [place] [address] [place] [address] Nicholas Simms MD 03/08/2025 Travel 03/04/[address] [facility] Care - [facility] [address] [facility], [address] [place] [phone] Wilner Rosario MD refill request 03/03/2025 10:15 AM CDT - 03/03/2025 11:59 PM CDT Hospital Encounter [facility] [address] [place] [address] Tho Horner, PT James Mcduffie MD Dickman, Jonathan F, PTA Back Pain Discharge Disposition: Home or Self Care (Routine Discharge) 03/03/2025 Travel 03/01/2025 9:22 AM CDT - 03/01/2025 11:59 PM CDT Hospital Encounter [facility] [address] [place] [address] Tho Horner, PT Back Pain Discharge Disposition: Home or Self Care (Routine Discharge) 03/01/2025 Travel 02/16/2025 Telephone [facility] [address] [place] [address] James Mcduffie MD Appointment Request 02/05/2025 11:07 AM CDT - 02/05/2025 11:59 PM CDT Hospital Encounter [facility] [address] [place] [address] Tho Horner, PT Wilner Rosario MD Parkinson's Disease Discharge Disposition: Home or Self Care (Routine Discharge) 02/05/2025 Travel 02/03/2025 10:30 AM CDT - 02/03/2025 11:59 PM CDT Hospital [facility] [address] [place] [address] Tho Horner, Wilner Caraballo MD Parkinson's Disease Discharge Disposition: Home or Self Care (Routine Discharge) 02/03/2025 Travel 01/28/2025 9:49 AM CDT - 01/28/2025 11:59 PM CDT Hospital Encounter [facility] [address] [place] [address] Tho Horner, PT Wilner Rosario MD Parkinson's Disease Discharge Disposition: Home or Self Care (Routine Discharge) 01/28/2025 Travel 01/27/2025 8:50 AM CDT - 01/27/2025 11:59 PM CDT Hospital Encounter [facility] ONE [facility] [place] [address] James Li NP Discharge Disposition: Home or Self Care (Routine Discharge) 01/27/2025 Travel 01/26/2025 Telephone [facility] Care - [facility] [address] [facility], [address] [place] [address] Wilner Rosario MD Orders 01/25/2025 10:24 AM CDT - 01/25/2025 11:59 PM CDT Hospital Encounter [facility] [address] [place] [address] Tho Horner, PT Wilner Rosario MD Kovarik, Ryan A, WINDOWS SYSTEMS ADMIN Parkinson's Disease Discharge Disposition: Home or Self Care (Routine Discharge) 01/25/2025 Travel 01/22/2025 10:20 AM CDT [facility] [address] [facility], [address] [place] [address] Wilner Rosario MD Parkinson's Disease (Follow up) 01/22/[address] [facility] - [facility] [address] [facility], [address] [place] [address] Wilner Rosario MD 01/22/2025 Telephone [facility] [address] [facility], [address] [place] [address] Wilner Rosario MD Botox (Lower Limb Dystonia) 01/22/2025 Travel 01/21/2025 10:00 AM CDT [facility] [address] [address] Dean Valadez MD Thoracic Aortic Aneurysm 01/20/2025 10:19 AM CDT - 01/20/2025 11:59 PM CDT Hospital Encounter [facility] [address] [place] [address] Tho Horner, PT Wilner Rosario MD Kovarik, Ryan A, WINDOWS SYSTEMS ADMIN Parkinson's Disease Discharge Disposition: Home or Self Care (Routine Discharge) 01/20/2025 Travel 01/18/2025 11:05 AM CDT - 01/18/2025 11:59 PM CDT Hospital Encounter [facility] [address] [place] [address] Tho Horner, PT Wilner Rosario MD Kovarik, Ryan A, WINDOWS SYSTEMS ADMIN Parkinson's Disease Discharge Disposition: Home or Self Care (Routine Discharge) 01/18/2025 Travel 01/15/2025 7:48 AM CDT - 01/15/2025 11:59 PM CDT Hospital Encounter [facility] [place] [address] Dean Valadez MD Discharge Disposition: Home or Self Care (Routine Discharge) 01/15/[address] [facility] - [address] [place] [address] Wilner Rosario MD Information 01/15/2025 Travel 01/13/2025 9:09 AM CDT - 01/13/2025 11:59 PM CDT Hospital Encounter [facility] [address] [place] [address] Tho Horner, PT Parkinson's Disease Discharge Disposition: Home or Self Care (Routine Discharge) 01/13/2025 Travel 01/11/2025 10:00 AM CDT - 01/11/2025 11:59 PM CDT Hospital Encounter [facility] [address] [place] [address] Tho Horner, PT Stefan Dsouza PTA Parkinson's Disease Discharge Disposition: Home or Self Care (Routine Discharge) 01/11/2025 Travel 01/07/2025 7:43 AM CDT - 01/07/2025 11:59 PM CDT Hospital Encounter [facility] [address] [place] [address] Tho Horner, PT Wilner Rosario MD Parkinson's Disease Discharge Disposition: Home or Self Care (Routine Discharge) 01/07/2025 Travel 01/04/2025 8:30 AM CDT - 01/04/2025 11:59 PM CDT Hospital Encounter [facility] [address] [place] [address] Tho Horner, PT Parkinson's Disease Discharge Disposition: Home or Self Care (Routine Discharge) 01/04/2025 Travel 12/31/2024 MyChart Message Enc [facility] Multispecialty Care - [address], [address] [place] [address] Wilner [facility] MD [facility] 12/23/2024 [facility] - [address], [address] [place] [address] Wilner Rosario MD referral request from Last [...] Tobacco Cessation:Counseling Given: Not Answered Comments:Proivder to primary substance abuse counselor Alcohol Use Standard Drinks/Week Comments Yes [...] Sex Assigned at Female 08/14/2024 5:42 AM ZINC FURNACE CHARGER Legal Sex Female 7:58 AM CDT Gender [...] Info) Description 03/16/2025 11:15 AM CDT Appointment [facility] [address] [place] [address] Tho Horner, PT [address] [place] [address] James Mcduffie MD [address] [facility] [address], [place] [address] Dayton Sidhu, [facility] [address] [place] [address] 03/17/2025 11:40 AM CDT Office Visit [facility]pecialty Care - [facility] [address] [facility], [address] [place] [address] Wilner Rosario MD 3 [place] [address] 03/18/2025 10:45 AM CDT Appointment [facility] [address] [place] [address] Tho Horner, PT [address] [place] [address] 05/04/2025 2:00 PM ZINC FURNACE CHARGER Office Visit [facility] [address] [phone] Ac Connelly MD 3 [facility] [place] [address] [place] [address] 06/23/2025 11:40 AM ZINC FURNACE CHARGER Office Visit [facility] - [facility] [address] [facility], [address] [place] [address] Wilner Rosario MD 3 [facility] [place] [address] 08/09/2025 9:30 AM ZINC FURNACE CHARGER Appointment [facility] [place] [address] Nicholas Simms MD Three [facility] [address] [place] [address] 03/07/2026 10:15 AM CDT Office Visit [facility] [address] [address] [place] [address] Nicholas Simms MD Three [facility] [address] [place] [address] 05/10/2026 9:00 AM ZINC FURNACE CHARGER [place]ment [facility] [address] [place] [address] Dean Valadez MD 3 [facility] [address] [place] [address] 05/19/2026 10:30 AM ZINC FURNACE CHARGER Office Visit [facility] [address] [facility] [place] [address] [place] [address] Dean Valadez MD 3 [facility] [address] [place] [address] Health Maintenance Due Date Last Done Comments [...] Zoster Vaccines Completed 04/13/2023, 02/10/2023 PHQ-2 (Physician [place]) Completed 01/22/2025 Meningococcal B Vaccine Aged Out No l onger eligible based on patient's age to complete this topic Meningococcal Vaccine Aged Out No ashley misha eligible based on patient's age to complete this topic RSV Immunizations Under 20 Months Aged Out No longer eligible based on patient's age to complete this topic Medical Devices Implanted Type Area Restaurant Maintenance Technician Device Identifier Shelf Expiration Date Model / Serial / Lot Left Dbs Lead Implant- 024 Implanted:Qty: 1 on 02/03/2024 by Marcellus Root MD Lead Implant Left: Brain Novel LISA [id number] / Deep Brain Stimulator Implant-02/12/20 24 Implanted:Qty: 1 on 02/12/2024 by Marcellus Root MD Stimulator Implant Left: Chest Last Second Tickets [id number] / Description:MR CONDITIONAL A T 1.5 T ONLY, FULL BODY ELIGIBLE , NEEDS REMOTE FULLY CHARGED AND WITH PATIENT TO DO IMPEDANCE CHECK AND TURN OFF STIMULATION, FOLLOW SCAN CONDITIONS IN MOST RECENT MRI TECHNICAL MANUAL FOR BODY PART AND COIL USED Dbs [place] Hole Plug-02/03/2024 Implanted:Qty: 1 on 02/03/2024 by Marcellus Root MD Brain [employer] Tickets [id number] / [id number] / Left Dbs Lead Extansion-2023 Implanted:Qty: 1 on 02/12/2024 by Marcellus Root MD Left: Neck Last Second Tickets [id number] / / Procedures Procedure [...] 2:29 PM Narrative 01/29/2025 2:38 PM CDT [facility] [address] [place], [place] [address] EXAMINATION: MRI LUMB SPINE WO CON HISTORY: [...] neuroforaminal narrowing. L4-L5: Large disc bulge with elgp-wn-nzwifpfa centers. There is moderate spinal canal narrowing with narrowing of both lateral recesses. There is moderate right and wwzo-qx-izzyogtm left neuroforaminal narrowing. L5-S1: Disc bulge and moderate to severe facet arthritis. No significant spinal canal narrowing. Moderate left and mild right neural foraminal narrowing. Procedure Note Jona Laird MD - 01/29/2025 [facility] 1 [place], [place] [address] EXAMINATION: MRI LUMB SPINE WO CON HISTORY: [...] neuroforaminal narrowing. L4-L5: Large disc bulge with jhmk-ui-hjhlgfup centers. There is moderatespinal canal narrowing with narrowing of both lateral recesses. There ismoderate right and drah-jn-uqwrlekh left neuroforaminal narrowing. L5-S1: Disc bulge and moderate to severe facet arthritis. No significantspinal canal narrowing. Moderate left and mild right neural foraminalnarrowing. IMPRESSION: Degenerative disease as above, including moderate spinal canal stenosis atL3-4 and L4-5. Referred By: JAMES LI Interpreted By: Jona Laird MD, 01/29/2025 2:29 PM us James Li DIRECTOR OF IT OPERATIONS MRI Final Result * XR CHEST PA OR AP 1V (01/27/2025 9:18 AM CDT) Anatomical Region Laterality Modality Chest Radiographic Melody ging 01/27/2025 9:37 AM CDT Impressions 01/27/2025 10:07 AM CDT IMPRESSION: Implanted stimulator device on the left chest with intact single lead. Ordered By: JAMES LI Interpreted By: Ion Oliver, 01/27/2025 9:37 AM Narrative 01/27/2025 10:07 AM CDT [address] [address] IMAGING STUDIES: XR CHEST PA OR AP [...] Procedure Note Ion Oliver MD - 01/27/[address] [address] IMAGING STUDIES: XR CHEST PA OR AP [...] Ion Oliver, 01/27/2025 9:37 AM James Li DIRECTOR OF IT OPERATIONS GENERAL IMAGING Final Result * XR CERV SPINE AP+LAT 2V (01/27/2025 9:18 AM CDT) Anatomical Region Laterality Modality Spine Radiographic Melody ging 01/27/2025 9:37 AM CDT Impressions 01/27/2025 10:07 AM CDT IMPRESSION: Implanted stimulator device on the left chest with intact single lead. Ordered By: JAMES LI Interpreted By: Ion Oliver, 01/27/2025 9:37 AM Narrative 01/27/2025 10:07 AM CDT [address] [address] IMAGING STUDIES: XR CHEST PA OR AP [...] Procedure Note Ion Oliver MD - 01/27/[address] [address] IMAGING STUDIES: XR CHEST PA OR AP [...] Ion Oliver, 01/27/2025 9:37 AM James Li DIRECTOR OF IT OPERATIONS GENERAL IMAGING Final Result * CT CHEST WO CON (01/15/2025 8:13 AM CDT) Anatomical Region Laterality Modality Chest Computed Tomogra phy 01/15/2025 8:25 AM CDT Impressions 01/15/2025 8:33 AM CDT IMPRESSION: 1. Stable aortic aneurysm measuring 4 cm. Referred By: DEAN VALADEZ Interpreted By: Arley Barba MD, 01/15/2025 8:25 AM Narrative 01/15/2025 8:33 AM CDT [address] [address] EXAMINATION: CT Chest 01/15/2025 INDICATION: ANEURYSM; GATED [...] Procedure Note Arley Barba MD - 01/15/[address] [address] EXAMINATION: CT Chest 01/15/2025 INDICATION: ANEURYSM; GATED [...] Result from Last 3 Months Insurance MEDICARE [facility] Advance Directives * Full Code (Latest Code Status on File) Date Activated Date Inactivated Comments 10/20/2024 1:26 PM Care Teams Bareback Rider Relationship Specialty Start Date End Date Roxie Meadows MD [address] [place] [phone] PCP - General FAMILY PRACTICE 04/01/20
--- OUTSIDE RECORDS SUMMARY | 2025-03-14 14:08 | XMS_ITS | Encounter Summary ---
Author Organization [facility] Address [facility] [place] [address] Care Team Providers Care Fingerer Name Role Phone Roxie Meadows MD Primary Care Provider [phone] Encounter Details Date Type Department Care Team (Late st Contact Info) Description 11/13/2024 MyChart Message Enc [facility] Neurology Speciality Clinic - [address] [place] [address] Wilner Rosario MD 3 [place] [address] RE: referral to Dr Cabrera Social History Tobacco Use Types Packs/Day Years Used Date Smoking Tobacco: Never Cigarettes 1.5 50 - 01/16/2024 Passive Smoke Exposure: Current Smokeless Tobacco: Never Comments:Proivder to phone counselor Alcohol Use Standard Drinks/Week Comments Yes [...] Sex Assigned at Female 08/14/2024 5:42 AM RAG INSPECTOR Legal Sex Female 7:58 AM CDT Gender Identity Not on file Sexual Orientation Not on file documented as of this encounter Plan of Treatment Upcoming Encounters Date Type Department Care Team (Late st Contact Info) Description 03/16/2025 11:15 AM CDT Appointment [facility] [address] [place] [address] Tho Horner, PT 725 [place] [address] James Mcduffie MD [address] [facility] [address], [place] [address] Dayton Sidhu, [facility] [address] [facility] [place] [address] 03/17/2025 11:40 AM CDT Office Visit [facility] Multispecialty Care - [address], [address] [place] [address] Wilner Rosario MD 3 [place] [address] 03/18/2025 10:45 AM CDT Appointment [facility] [address] [place] [address] Tho Horner, PT [address] [place] [address] 05/04/2025 2:00 PM RAG INSPECTOR Office Visit [facility] [address] [address] Ac Connelly MD 3 [facility] [address] [place], [place] [address] 06/23/2025 11:40 AM RAG INSPECTOR Office Visit [facility] Group Multispecialty Care - [facility] 3 [facility], [address] [place] [address] Wilner Rosario MD [address] [facility] [place] [address] 08/09/2025 9:30 AM RAG INSPECTOR Appointment [facility] [place] [address] Nicholas Simms MD Three [facility] [address] [place] [address] 03/07/2026 10:15 AM CDT Office Visit [facility] [address] [place] [address] Nicholas Simms MD Three [facility] [address] [place] [address] 05/10/2026 9:00 AM RAG INSPECTOR [facility]ment [facility] [address] [facility] [place] [address] Fam Valadez MD 3 [facility] [address] [place] [address] 05/19/2026 10:30 AM RAG INSPECTOR Office Visit [facility] [address] [facility] [place] [place] [address] Fam Valadez MD 3 [facility] [address] [place] [address] documented as of this encounter Visit Diagnoses Not on filedocumented in this encounter Care Teams Fingerer Relationship Specialty Start Date End Date Roxie Meadows MD [address] [place] [address] PCP - General FAMILY PRACTICE 04/01/20 documented as of this encounter
--- OUTSIDE RECORDS SUMMARY | 2025-03-14 14:08 | XMS_ITS | Encounter Summary ---
Author Organization [facility] Address [facility] [place] [address] Care Team Providers Care Property Disposal Officer Name Role Phone Roxie Meadows MD Primary Care Provider [phone] Encounter Details Date Type Department Care Team (Latest Contact Info) Description 11/22/2023 SharesPostt Message Enc [facility] G[facility] Specialty Clinic [address] [address] Ac Connelly MD [address] [place] [address] Medication change request Social History Tobacco Use Types Packs/Day Years Used Date Smoking Tobacco: Every Day Cigarettes 1.5 50 Passive Smoke Exposure: Current Smokeless Tobacco: Never Comments:Proivder to career guidance counselor Alcohol Use Standard Drinks/Week Comments Yes 1.7 (1 standard drink = 0.6 oz p ure alcohol) PHQ-2 Answer Date Recorded Patient Health Questionnaire-2 Score 0 11/01/2023 Comments No Sex and Gender Information Value Date Recorded Sex Assigned at Female 08/14/2024 5:42 AM VP [employer] Legal Sex Female 7:58 AM CDT Gender Identity Not on file Sexual Orientation Not on file documented as of this encounter Plan of Treatment Upcoming Encounters Date Type Department Care Team (Late st Contact Info) Description 03/16/2025 11:15 AM CDT Appointment [facility] [address] [place], [place] [id number] Tho Horner M, PT 725 [place] [address] James Mcduffie MD [address] [facility] [address], [facility] [place] [address] Dayton Sidhu, CERTIFIED ORTHOTIST/PEDORTHIST [address] [place] [address] 03/17/2025 11:40 AM CDT [facility] [address], [facility] [address] [place] [phone] Wilner Rosario MD [address] [place] [address] 03/18/2025 10:45 AM CDT Appointment [facility] [address] [place] [address] Tho Horner, PT [address]25 [place] [address] 05/04/2025 2:00 PM VP [employer] Office Visit [facility] [address] [address] Ac Connelly MD [address] [address] 06/23/2025 11:40 AM VP [employer] [facility] [address] [facility], [address] [place] [phone] Wilner Rosario MD 3 [place] [address] 08/09/2025 9:30 AM VP [employer] Appointment [facility] [place] [address] Nicholas Simms MD [address] [place] [address] 03/07/2026 10:15 AM CDT Office Visit [facility] [address] [place] [address] Nicholas Simms MD [address] [place] [address] 05/10/2026 9:00 AM VP [employer] Appointment [facility] [address] [place] [address] Fam Valadez MD 3 [facility] [address] [place] [address] 05/19/2026 10:30 AM VP [employer] Office Visit [facility] [address] [facility] [address] [place] [address] Fam Valadez MD 3 [facility] [address] [place] [address] documented as of this encounter Visit Diagnoses Not on filedocumented in this encounter Care Teams Property Disposal Officer Relationship Specialty Start Date End Date Roxie Meadows MD [address] [place] [phone] PCP - General FAMILY PRACTICE 04/01/20 documented as of this encounter
--- OUTSIDE RECORDS SUMMARY | 2025-03-14 14:08 | XMS_ITS | Encounter Summary ---
Author Organization [facility] Address [facility] [place] [address] Care Team Providers Care Cigar Head Puncher Name Role Phone Roxie Meadows MD Primary Care Provider [phone] Encounter Details Date Type Department Care Team (Late st Contact Info) Description 11/08/2024 Aniikahart Message Enc [facility] Medical [facility] Neurology Speciality Clinic - [address] [place] [address] Wilner Rosario MD 3 [place] [address] Info you requested Social History Tobacco Use Types Packs/Day Years Used Date Smoking Tobacco: Never Cigarettes 1.5 50 - 01/16/2024 Passive Smoke Exposure: Current Smokeless Tobacco: Never Comments:Proivder to pet adoption counselor Alcohol Use Standard Drinks/Week Comments Yes [...] Sex Assigned at Female 08/14/2024 5:42 AM MOBILE MECHANIC Legal Sex Female 7:58 AM CDT Gender Identity Not on file Sexual Orientation Not on file documented as of this encounter Plan of Treatment Upcoming Encounters Date Type Department Care Team (Late st Contact Info) Description 03/16/2025 11:15 AM CDT Appointment [facility] 725 [place] [address] Tho Horner, PT 725 [place] [address] James Mcduffie MD [address] [facility] [address], [place] [address] [place] Sidhu, PHOTOGRAPHIC PROCESS WORKER 1215 [place] [address] 03/17/2025 11:40 AM CDT Office Visit [facility] Multispecialty Care - [address], [address] [place] [address] Wilner Rosario MD 3 [place] [address] 03/18/2025 10:45 AM CDT Appointment [facility] [address] [place] [address] Tho Horner, PT 725 [place] [address] 05/04/2025 2:00 PM MOBILE MECHANIC Office Visit [facility]ology Specialty Clinic [address] [address] Ac Connelly MD 3 [facility] [address] [place], [place] [address] 06/23/2025 11:40 AM MOBILE MECHANIC Office Visit [facility] Medical Group Multispecialty Care - [facility] 3 [facility], [address] [place] [address] Wilner Rosario MD 3 [facility] [place] [address] 08/09/2025 9:30 AM MOBILE MECHANIC Appointment [facility] Non Invasive Cardiology ONE [facility] [place] [address] Nicholas Simms MD Three [facility] [address] [place] [address] 03/07/2026 10:15 AM CDT Office Visit [facility] [address] [place] [address] Nicholas Simms MD Three [facility] [address] [place] [address] 05/10/2026 9:00 AM MO[address]LE MECHANIC [facility] [facility] [place] [address] [facility] [place] [place] [address] Fam Valadez MD 3 [facility] [address] [place] [address] 05/19/2026 10:30 AM MOBILE MECHANIC Office Visit [facility] THREE [facility], [address] [place] [address] Fam Valadez MD 3 [facility] [address] [place] [address] documented as of this encounter Visit Diagnoses Not on filedocumented in this encounter Care Teams Cigar Head Puncher Relationship Specialty Start Date End Date Roxie Meadows MD [address] [facility] [place] [address] PCP - General FAMILY PRACTICE 04/01/20 documented as of this encounter
--- OUTSIDE RECORDS SUMMARY | 2025-03-14 14:08 | XMS_ITS | Clinical Summary ---
Author Organization [facility] Address [address] [place] [address] Care Team Providers Care Fittings Finisher Name Role Phone Roxie Meadows MD Primary Care Provider [phone] Source Comments [facility],non-owned Affiliates and Associated Physician Practices is amultiple site organization consisting of ambulatory clinics and hospital sitesin [place], [place], [place] and [place]. This disclosure is being madepursuant to the Care Everywhere program and may not contain all information available regarding this patient. Last updated 18.[facility] Allergies Active Allergy Reactions Criticality Noted Date [...] and heating? Not hard at all 02/03/2024 [facility] [place] of Occupat ional Health - Occupational Stress [...] place to sleep or slept in a retirement (including now)? No 02/03/2024 Comments No Sex and Gender Information Value Date Recorded Sex Assigned at Not on file Legal Sex Female 10:43 AM CDT Gender Identity Not on file Sexual Orientation Not on file Last Filed Vital Signs Vital Sign Reading Time Taken Comments Blood Pressure 117/66 07/15/2024 7:58 AM CLINICAL CODER Pulse 95 07/15/2024 7:58 AM CLINICAL CODER Temperature 37.1 C (98.7 F) 06/18/2024 10:06 AM CLINICAL CODER Respiratory Rate 18 06/18/2024 10:06 AM CLINICAL CODER Oxygen Saturation 100% 07/15/2024 7:58 AM CLINICAL CODER Inhaled Oxygen Concentration - - Weight 50.4 kg (111 lb 3.2 oz) 07/15/2024 7:58 A M CLINICAL CODER Height 162.6 cm (5' 4) 07/15/2024 7:58 AM CLINICAL CODER Body Mass Index 19.09 07/15/2024 7:58 AM CLINICAL CODER Plan of Treatment Health Maintenance Due Date [...] this topic Medical Devices Implanted Type Area Inspector Golf Ball Device Identifier Shelf Expiration Date Model / Serial / Lot Vercise Cartesia Directional Lead Kit 45 Cm 8 Contact Dbs Implanted:Qty: 1 on 02/03/2024 by Marcellus Root MD at [facility] Left: Cranial [employer] Neuro 12/02/2025 [id number] / [id number] / N/A Kit Nrstm Dbs Bur Hl Plg Strl Implanted:Qty: 1 on 02/03/2024 by Marcellus Root MD at [facility] Left: Cranial [employer] Scimed [id number] / / [id number] Aren Kit Pls Gntr Vercise Genus R16 - [id number] Implanted:Qty: 1 on 02/12/2024 by Marcellus Root MD at [facility] Left: Chest [employer] Adalberto 09/18/2025 [id number] BILL ONLY / [id number] / [id number] Kit Nrstm 55cm Ld Xtn 8 Cntct Implanted:Qty: 1 on 02/12/2024 by Marcellus Root MD at [facility] Left: Neck [employer] Scimed [id number] / / Explanted Type Area Inspector Golf Ball Device Identifier Shelf Expiration Date Model / Serial / Lot Wire K 1.6mm 229mm 2 End Troc Pnt Sty 1 - Sn/A Explanted:Qty: 1 on 02/03/2024 at [facility] [employer] 08/22/2031 [id number] / N/A / [id number] Nrstm Impl Bst Sci Or Cbl Pshbtn 8 Cntct Explanted:Qty: 1 on 02/03/2024 at [facility] Left: Cranial [employer] Neuro [id number] / / Insurance [facility] MEDICARE [facility] MEDICARE [facility] [place] [address] Advance Directives * Full Code (Latest Code Status on File) Date Activated Date Inactivated Comments 02/03/2024 12:51 PM 02/04/2024 11:50 AM Care Teams Fittings Finisher Relationship Specialty Start Date End Date Roxie Meadows MD [address] [place] [address] [place] [address] PCP - General Family Medicine 09/11/23
--- OUTSIDE RECORDS SUMMARY | 2025-03-14 14:08 | XMS_ITS | Encounter Summary ---
Author Organization [facility] Address [facility] [place] [address] Care Team Providers Care Marine Resource Economist Name Role Phone Roxie Meadows MD Primary Care Provider [phone] Encounter Details Date Type Department Care Team (Latest Contact Info) Description 12/21/2022 MyChart Message Enc [facility] Medical Group Multispecialty Care - [facility] 3 [facility], [address] [place] [address] Wilner Rosario MD 3 [place] [address] updated information Social History Tobacco Use Types Packs/Day Years Used Date Smoking Tobacco: Every Day Cigarettes Passive Smoke Exposure: Current Smokeless Tobacco: Never PHQ-2 Answer Date Recorded Patient Health Questionnaire-2 Score 1 12/20/2022 Comments Unknown Sex and Gender Information Value Date Recorded Sex Assigned at Female 08/14/2024 5:42 AM SEWER BUILDER Legal Sex Female 7:58 AM CDT Gender Identity Not on file Sexual Orientation Not on file documented as of this encounter Plan of Treatment Upcoming Encounters Date Type Department Care Team (Late st Contact Info) Description 03/16/2025 11:15 AM CDT Appointment [facility] 725 [place], [place] [address] Tho Horner, PT 725 [place] [address] James Mcduffie MD [address] [facility] [address], [facility] [place] [address] Dayton Sidhu, [facility] [address] [place] [address] 03/17/2025 11:40 AM CDT [facility] 3 [facility], [address] [place] [address] Wilner Rosario MD 3 [place] [address] 03/18/2025 10:45 AM CDT Appointment [facility] 725 [place] [address] Tho Horner, PT 725 [place] [address] 05/04/2025 2:00 PM SEWER BUILDER Office Visit [facility] G[facility]ology Specialty Clinic [address] [address] Ac Connelly MD [address] [address] 06/23/2025 11:40 AM SEWER BUILDER Office Visit [facility] 3 [facility], [address] [place] [address] Wilner Rosario MD 3 [place] [address] 08/09/2025 9:30 AM SEWER BUILDER [facility]ment [facility] ONE [facility] [address] Nicholas Simms MD [address] [place] [address] 03/07/2026 10:15 AM CDT Office Visit [facility] [address] [place] [address] Nicholas Simms MD Three [facility] [address] [place] [address] 05/10/2026 9:00 AM SEWER BUILDER Appointment [facility] [address] [place] [address] Fam Valadez MD 3 [facility] [address] [place] [address] 05/19/2026 10:30 AM SEWER BUILDER Office Visit [facility] THREE [facility], [address] [place] [address] Fam Valadez MD 3 [facility] [address] [place] [address] documented as of this encounter Visit Diagnoses Not on filedocumented in this encounter Care Teams Marine Resource Economist Relationship Specialty Start Date End Date Roxie Meadwos MD [address] [place] [phone] PCP - General FAMILY PRACTICE 04/01/20 documented as of this encounter
--- OUTSIDE RECORDS SUMMARY | 2025-03-14 14:08 | XMS_ITS | Clinical Summary ---
Author Organization [facility] Address [address] [facility] [address] [place] [address] Phone Care Team Providers Care Upholsterer Limousine And Hearse Name Role Phone Roxie Meadows MD Primary Care Provider Allergies Active Allergy Reactions Criticality Noted Date [...] patient's age to complete this topic Insurance .[address] [address] MEDICARE MEDICARE [facility] Advance Directives Documents on File Type Date Recorded Patient Nephrologist Expl anation Power of Pump Rebuilder for Health Care 02/18/2019 4:20 PM POA FOR HEALTH CARE Care Teams Upholsterer Limousine And Hearse Relationship Specialty Start Date End Date Roxie Meadows MD [address] [place] [address] PCP - General Family Medicine 09/21/24
--- OUTSIDE RECORDS SUMMARY | 2025-03-14 14:08 | XMS_ITS | Encounter Summary ---
Author Organization [facility] Address [facility] [place] [address] Care Team Providers Care Webbing Tacker Name Role Phone Roxie Meadows MD Primary Care Provider [phone] Encounter Details Date Type Department Care Team (Latest Contact Info) Description 06/13/2024 TouchPo Android POSt Message Enc [facility] Medical Group Gastroenterology Specialty Clinic [address] [address] Ac Connelly MD [address] [place] [phone] refill request Social History Tobacco Use Types Packs/Day Years Used Date Smoking Tobacco: Never Cigarettes 1.5 50 - 01/16/2024 Passive Smoke Exposure: Current Smokeless Tobacco: Never Comments:Proivder to gambling counsellor Alcohol Use Standard Drinks/Week Comments Yes 0 (1 standard drink = 0.6 oz pur e alcohol) rarely PHQ-2 Answer Date Recorded Patient Health Questionnaire-2 Score 0 04/29/2024 Comments No Sex and Gender Information Value Date Recorded Sex Assigned at Female 08/14/2024 5:42 AM OR FIRST ASSIST REGISTERED NURSE Legal Sex Female 7:58 AM CDT Gender Identity Not on file Sexual Orientation Not on file documented as of this encounter Plan of Treatment Upcoming Encounters Date Type Department Care Team (Late st Contact Info) Description 03/16/2025 11:15 AM CDT Appointment [facility] 725 [place] [address] Tho Horner, PT 725 [place] [address] James Mcduffie MD [address] [address] Dayton Sidhu, VEHICLE BODY MAKER 1215 [facility] [place] [address] 03/17/2025 11:40 AM CDT [facility] [address], [address] [phone] Wilner Rosario MD 3 [place], [place] [address] 03/18/2025 10:45 AM CDT Appointment [facility] 725 [place] [address] Tho Horner, PT 725 [place] [address] 05/04/2025 2:00 PM OR FIRST ASSIST REGISTERED NURSE Office Visit [facility] G[facility]ology Specialty Clinic [address] [phone] Ac Connelly MD [address] [address] 06/23/2025 11:40 AM OR FIRST ASSIST REGISTERED NURSE [facility] 3 [facility], [address] [phone] Wilner Rosario MD 3 [place] [address] 08/09/2025 9:30 AM OR FIRST ASSIST REGISTERED NURSE Appointment [facility] [address] Nicholas Simms MD [address] [facility] [address] [place] [address] 03/07/2026 10:15 AM CDT Office Visit [facility] [address] [place] [address] Nicholas Simms MD Three [facility] [address] [place] [address] 05/10/2026 9:00 AM OR FIRST ASSIST REGISTERED NURSE Appointment [facility] [address] [place] [address] Fam Valadez MD [address] [facility] [address] [place] [address] 05/19/2026 10:30 AM OR FIRST ASSIST REGISTERED NURSE Office Visit [facility] THREE [facility], [address] [place] [address] Fam Valadez MD [address] [facility] [address] [place] [address] documented as of this encounter Visit Diagnoses Not on filedocumented in this encounter Care Teams Webbing Tacker Relationship Specialty Start Date End Date Roxie Meadows MD [address] [place] [address] PCP - General FAMILY PRACTICE 04/01/20 documented as of this encounter
--- OUTSIDE RECORDS SUMMARY | 2025-03-14 14:08 | XMS_ITS | Encounter Summary ---
Author Organization [facility] Address [facility] [place] [address] Care Team Providers Care Biosecurity Officer Name Role Phone Roxie Meadows MD Primary Care Provider [phone] Encounter Details Date Type Department Care Team (Late st Contact Info) Description 07/28/2024 MyChart Message Enc [facility] Medical Group Neurology Speciality Clinic - [address] [place] [address] Wilner Rosario MD 3 [place] [address] Documents/Mary Social History Tobacco Use Types Packs/Day Years Used Date Smoking Tobacco: Never Cigarettes 1.5 50 - 01/16/2024 Passive Smoke Exposure: Current Smokeless Tobacco: Never Comments:Proivder to risk reduction counselor Alcohol Use Standard Drinks/Week Comments Yes 0 (1 standard drink = 0.6 oz pur e alcohol) rarely PHQ-2 Answer Date Recorded Patient Health Questionnaire-2 Score 0 04/29/2024 Comments No Sex and Gender Information Value Date Recorded Sex Assigned at Female 08/14/2024 5:42 AM WAITER/WAITRESS ROOM SERVICE Legal Sex Female 7:58 AM CDT Gender Identity Not on file Sexual Orientation Not on file documented as of this encounter Plan of Treatment Upcoming Encounters Date Type Department Care Team (Late st Contact Info) Description 03/16/2025 11:15 AM CDT Appointment [facility] 5 [place] [address] Tho Horner, PT 725 [place] [address] James Mcduffie MD 6828 [facility] [address], [facility] [address] [place] Sidhu, BURNER MACHINE OPERATOR 1215 [facility] [place] [address] 03/17/2025 11:40 AM CDT [facility] - [address], [address] [phone] Wilner Rosario MD 3 [place] [address] 03/18/2025 10:45 AM CDT Appointment [facility] 725 [place] [address] Tho Horner, PT 725 [place] [address] 05/04/2025 2:00 PM WAITER/WAITRESS ROOM SERVICE Office Visit [facility]ology Specialty Clinic [address] [phone] Ac Connelly MD [address] [address] 06/23/2025 11:40 AM WAITER/WAITRESS ROOM SERVICE [facility] 3 [facility], [address] [place] [address] Wilner Rosario MD 3 [place] [address] 08/09/2025 9:30 AM WAITER/WAITRESS ROOM SERVICE Appointment [facility] [address] Nicholas Simms MD Three [facility] [address] [place] [address] 03/07/2026 10:15 AM CDT Office Visit [facility] [address] [place] [address] Nicholas Simms MD Three [facility] [address] [place] [address] 05/10/2026 9:00 AM WAITER/WAITRESS ROOM SERVICE [facility] [place] [address] [place] [address] Fam Valadez MD 3 [facility] [address] [place] [address] 05/19/2026 10:30 AM WAITER/WAITRESS ROOM SERVICE Office Visit [facility] THREE [facility], [address] [place] [address] Fam Valadez MD 3 [facility] [address] [place] [address] documented as of this encounter Visit Diagnoses Not on filedocumented in this encounter Care Teams Biosecurity Officer Relationship Specialty Start Date End Date Roxie Meadows MD [address] [place] [phone] PCP - General FAMILY PRACTICE 04/01/20 documented as of this encounter
--- OUTSIDE RECORDS SUMMARY | 2025-03-14 14:08 | XMS_ITS | Encounter Summary ---
Author Organization [facility] Address [facility] [place] [address] Care Team Providers Care Alignment Technician Name Role Phone Roxie Meadows MD Primary Care Provider [phone] Encounter Details Date Type Department Care Team (Late st Contact Info) Description 09/22/2024 MyChart Message Enc [facility] Medical Group Neurology Speciality Clinic - [address] [place] [phone] Wilner Rosario MD 3 [place], [place] [phone] update decreasing carbo/Levo Social History Tobacco Use Types Packs/Day Years Used Date Smoking Tobacco: Never Cigarettes 1.5 50 - 01/16/2024 Passive Smoke Exposure: Current Smokeless Tobacco: Never Comments:Proivder to recreational counselor Alcohol Use Standard Drinks/Week Comments Yes 0 (1 standard drink = 0.6 oz pur e alcohol) rarely PHQ-2 Answer Date Recorded Patient Health Questionnaire-2 Score 0 04/29/2024 Comments No Sex and Gender Information Value Date Recorded Sex Assigned at Female 08/14/2024 5:42 AM BUSINESS LAW PROFESSOR Legal Sex Female 7:58 AM CDT Gender Identity Not on file Sexual Orientation Not on file documented as of this encounter Plan of Treatment Upcoming Encounters Date Type Department Care Team (Late st Contact Info) Description 03/16/2025 11:15 AM CDT Appointment [facility] 725 [place] [address] Tho Horner, PT 725 [place] [address] James Mcduffie MD 6828 [facility] [address], [facility] [place] [address] Dayton Sidhu, PHOTOENGRAVING MACHINE OPERATOR/TENDER 1215 [facility] [place] [address] 03/17/2025 11:40 AM CDT [facility] [address], [address] [phone] Wilner Rosario MD 3 [place] [address] 03/18/2025 10:45 AM CDT Appointment [facility] 725 [place] [address] Tho Horner, PT 725 [place] [address] 05/04/2025 2:00 PM BUSINESS LAW PROFESSOR Office Visit [facility]ology Specialty Clinic [address] [address] Ac Connelly MD [address] [address] 06/23/2025 11:40 AM BUSINESS LAW PROFESSOR [facility] 3 [facility], [address] [place] [address] Wilner Rosario MD 3 [place] [address] 08/09/2025 9:30 AM BUSINESS LAW PROFESSOR Appointment [facility] [place] [address] Nicholas Simms MD [address] [place] [address] 03/07/2026 10:15 AM CDT Office Visit [facility] [address] [place] [address] Nicholas Simms MD [address] [place] [address] 05/10/2026 9:00 AM BUSINESS LAW PROFESSOR [facility]ment [facility] [place] [address] [place] [address] Fam Valadez MD 3 [facility] [address] [place] [address] 05/19/2026 10:30 AM BUSINESS LAW PROFESSOR Office Visit [facility] THREE [facility], [address] [place] [address] Fam Valadez MD 3 [facility] [address] [place] [address] documented as of this encounter Visit Diagnoses Not on filedocumented in this encounter Care Teams Alignment Technician Relationship Specialty Start Date End Date Roxie Meadows MD [address] [place] [address] PCP - General FAMILY PRACTICE 04/01/20 documented as of this encounter
--- OUTSIDE RECORDS SUMMARY | 2025-03-14 14:08 | XMS_ITS | Clinical Summary ---
Author Organization [facility] Address [address] [place] [address] Care Team Providers Care Pocket Closer Name Role Phone Roxie Meadows MD Primary Care Provider [phone] Wilner Rosario MD Unavailable [phone] Allergies Active Allergy Reactions Criticality Noted Date [...] a week and report back us via Bomboard. - Start fludrocort as planned. -Continue CD/LD [...] constipation Assessment & Plan (08/16/2021 3:19 PM PRODUCT DESIGN SPECIALIST): She has relatively mild stage 2 PD [...] 2 weeks and report back us via Carlypsot -continue CD/LD 25/100 1.5 tabs every 3 [...] occurs at night or in the early intervention specialist and she wishes to leave this untreated. [...] constipation. Assessment & Plan (08/15/2020 4:50 PM PRODUCT DESIGN SPECIALIST): Ms. Boucher has stage 2 PD (at [...] on file Legal Sex Female 7:50 PM PRODUCT DESIGN SPECIALIST Gender Identity Female 08/08/2020 9:59 AM PRODUCT DESIGN SPECIALIST Sexual Orientation Straight 08/08/2020 9: 59 AM PRODUCT DESIGN SPECIALIST Occupation Industry Job Start Date Job End Date retired nurse Not on file Not on file Not on file Obstetrics History Last Filed Vital Signs Vital Sign Reading Time Taken Comments Blood Pressure 111/68 03/27/2019 9:15 AM CDT Pulse 93 03/27/2019 9:15 AM CDT Temperature - - Respiratory Rate - - Oxygen Saturation 96% 04/16/2018 9:29 AM PRODUCT DESIGN SPECIALIST Inhaled Oxygen Concentration - - Weight 45.4 [...] vaccine 65+ Completed 01/16/2020, 09/10 Insurance MEDICARE [facility] MEDICARE [facility] [place] [address] Care Teams Pocket Closer Relationship Specialty Start Date End Date Roxie Meadows MD [address] [place] [address] PCP - General Family Medicine 08/16/21 Wilner oRsario MD [address] [id number] Referring Physician Neurology 11/20/24
--- OUTSIDE RECORDS SUMMARY | 2025-03-14 14:08 | XMS_ITS | Encounter Summary ---
Author Organization [facility] Address [facility] [place] [address] Care Team Providers Care Evaluator Transfer Students Name Role Phone Roxie Meadows MD Primary Care Provider [phone] Encounter Details Date Type Department Care Team (Late st Contact Info) Description 08/31/2024 Magento Message Enc [facility], [facility] [address] [place], [place] [id number] Chantell Laguna, ANP-BC [facility]. [facility] [address] [place], [place] [id number] Test Results Social History Tobacco Use Types Packs/Day Years Used Date Smoking Tobacco: Never Cigarettes 1.5 50 - 01/16/2024 Passive Smoke Exposure: Current Smokeless Tobacco: Never Comments:Proivder to financial counselor Alcohol Use Standard Drinks/Week Comments Yes 0 (1 standard drink = 0.6 oz pur e alcohol) rarely PHQ-2 Answer Date Recorded Patient Health Questionnaire-2 Score 0 04/29/2024 Comments No Sex and Gender Information Value Date Recorded Sex Assigned at Female 08/14/2024 5:42 AM LEAD PRINTER Legal Sex Female 7:58 AM CDT Gender Identity Not on file Sexual Orientation Not on file documented as of this encounter Plan of Treatment Upcoming Encounters Date Type Department Care Team (Late st Contact Info) Description 03/16/2025 11:15 AM CDT Appointment [facility] [address] [place] [address] Tho Horner, PT [address] [place] [address] James Mcduffie MD [address] [facility] [address], [facility] [place] [address] Dayton Sidhu, SPEAR FISHER [address] [place] [address] 03/17/2025 11:40 AM CDT [facility] [address], [address] [phone] Wilner Rosario MD [address] [place] [address] 03/18/2025 10:45 AM CDT Appointment [facility] [address] [place] [address] Tho Horner, PT [address] [place] [address] 05/04/2025 2:00 PM LEAD PRINTER Office Visit [facility] [address] [phone] Ac Connelly MD [address] [address] 06/23/2025 11:40 AM LEAD PRINTER [facility] [address] [facility], [address] [place] [phone] Wilner Rosario MD [address] [place] [address] 08/09/2025 9:30 AM LEAD PRINTER Appointment [facility] [address] Nicholas Simms MD Three [facility] [address] [place] [address] 03/07/2026 10:15 AM CDT Office Visit [facility] [address] [place] [address] Nicholas Simms MD Three [facility]., [address] [place] [address] 05/10/2026 9:[address] [facility] [place] [address] [place] [address] Fam Valadez MD 3 [facility] [address] [place] [address] 05/19/2026 10:30 AM LEAD PRINTER Office Visit [facility] [facility] [place] [address] [place] [address] Fam Valadez MD 3 [facility] [address] [place] [address] documented as of this encounter Visit Diagnoses Not on filedocumented in this encounter Care Teams Evaluator Transfer Students Relationship Specialty Start Date End Date Roxie Meadows MD [address] [place] [phone] PCP - General FAMILY PRACTICE 04/01/20 documented as of this encounter
--- NOTE | 2025-03-14 15:34 | ECG_ITS ---
Test Date: 2025-03-14 15:49:04 Measurements Intervals [place] Rate: 79 P: 74 WI: 203 QRS: -24 QRSD: 89 T: 81 QT: 396 QTc: 455 Interpretive Statements SINUS RHYTHM BORDERLINE AV CONDUCTION DELAY POSSIBLE RIGHT ATRIAL ENLARGEMENT POSSIBLE LEFT ATRIAL ENLARGEMENT INFERIOR INFARCT, AGE INDETERMINATE BASELINE ARTIFACT- I, II, AVR, AVL, AVF ABNORMAL ECG Compared to ECG 03/14/2025 13:20:42 NO SIGNIFICANT CHANGE Electronically Signed On 03-14-2025 19:31:24 CDT by Theo Yanez D.O.
[2025-03-14] MEDS: MORPHINE SULFATE (*CRX) 4 MG/ML INJ 2 MG IV PUSH (16:00)
[2025-03-14 16:16] LABS: Troponin I 4.290 ng/mL (0.000-0.034)
--- NOTE | 2025-03-14 16:52 | PM.CNCAR ---
Assessment and Plan Assessment and plan (1) ST elevation (STEMI) myocardial infarction: Code(s): I21.3 - ST elevation (STEMI) myocardial infarction of unspecified site Status: Acute Plan STEMI anterior wall and old inferior wall WV Ascending aortic aneurysm mild Parkinson's disease Plan Aspirin Emergency left heart catheterization Transthoracic echocardiogram History of Present Illness History of Present Illness Consult date/time: 03/14/25 16:52 Reason For Visit: STEMI Narrative: 74-year-old female patient presents to the hospital with acute episode of chest pain started at 10:30 a.m.. Chest pain was severe retrosternal radiating to both shoulders pressure squeezing like. She was having no nausea vomiting or sweating. Chest pain was started to improve in the ED however serial EKGs show significant change with elevation in the anterior leads and cardiac cath rn was activated on repeat EKG. Review of Systems Review of Systems: All systems reviewed & are unremarkable except as noted in HPI and below PMFSH Past Medical History Medical History AAA (abdominal aortic aneurysm) Hypotension Depression Anxiety History of colon polyps Parkinson's disease Chronic idiopathic constipation Kidney stone Smoking addiction Hyperparathyroidism Vitamin D deficiency Osteoporosis GERD (gastroesophageal reflux disease) IBS (irritable bowel syndrome) Surgical History Surgical History Status post deep brain stimulator placement 02/03/24 and 02/12/24 S/P endometrial ablation History of appendectomy 2019 Family History Family History Father Family history of malignant neoplasm of stomach Family history of malignant neoplasm Sibling Family history of malignant melanoma Other Alcoholism Cancer Social History Social History Smoking packs per day: 2 Smoking cigarettes per day: 40.0 Years smoked: 55 Smoking pack-years: 110.00 Smoking status: Current every day smoker Tobacco type: cigarettes Second hand tobacco smoke exposure: Yes Alcohol intake: current Alcohol use details: rarely Substance use: never Substance use type: does not use Do You Feel Safe in your Home?: Yes Lack of Transportation: No Lack of Food: Never True Current Housing: I Have Housing Concerned About Future Housing: No Difficulty Paying Gas/Electric Bills: No Difficulty Paying for Meds: No Currently Unemployed: No Education: Associate Degree Difficulty w/ Childcare or Family Care: No Living arrangements: with family Spiritual care concerns: No Meds Home Medications and Allergies Home Medications ?Medication ?Instructions ?Recorded ?Confirmed ?Type acetaminophen 650 mg 650 mg PO Q12H 10/11/20 02/12/25 History tablet,extended release (Tylenol 8 Hour) carbidopa ER 50 mg-levodopa 200 mg 1 tablet PO QHS 10/11/20 02/12/25 History tablet,extended release cholecalciferol (vitamin D3) 25 2,000 unit PO DAILY 02/01/22 02/12/25 History mcg (1,000 unit) capsule lorazepam 0.5 mg tablet 0.5 mg PO TID PRN Anxiety 02/01/22 02/12/25 History mirtazapine 30 mg tablet 45 mg PO HS 09/19/23 02/12/25 History lactulose 10 gram/15 mL oral See Rx Instructions .Route 10/29/23 02/12/25 Rx solution .COMPLEX #2,838 mL carbidopa ER 25 mg-levodopa 100 mg 1 tablet PO TID 03/23/24 02/12/25 History tablet,extended release clonazepam 0.5 mg tablet 0.25 mg PO QHS PRN sleep 03/23/24 02/12/25 History zoledronic acid 5 mg/100 mL in 1 ea IV DIRECTED 03/23/24 02/12/25 History mannitol 5 %-water intravenous piggybck (Reclast) Allergies Allergy/AdvReac Type Severity Reaction Status Date / Time gentamicin Allergy Intermediate Swelling Verified 03/14/25 13:52 Iodinated Contrast Media Allergy Hives Verified 03/14/25 13:52 Vital Signs Vital Signs - 24 hr 03/14/25 13:29 03/14/25 13:54 03/14/25 14:45 Temperature 36.9 C Pulse Rate 97 83 89 Respiratory Rate 20 16 18 Blood Pressure 117/68 149/84 H Pulse Oximetry 98 100 Oxygen Delivery Room Air Oxygen Flow Rate Fraction of Inspired Oxygen 03/14/25 15:00 03/14/25 15:00 03/14/25 15:01 Temperature Pulse Rate 85 85 84 Respiratory Rate 16 15 17 Blood Pressure 112/75 112/75 Pulse Oximetry 98 Oxygen Delivery Oxygen Flow Rate Fraction of Inspired Oxygen 03/14/25 15:15 03/14/25 15:16 03/14/25 15:30 Temperature Pulse Rate 81 84 80 Respiratory Rate 15 17 15 Blood Pressure 118/74 113/74 Pulse Oximetry 98 98 96 Oxygen Delivery Oxygen Flow Rate Fraction of Inspired Oxygen 03/14/25 15:31 03/14/25 15:55 03/14/25 16:11 Temperature Pulse Rate 77 82 84 Respiratory Rate 19 20 18 Blood Pressure 125/77 Pulse Oximetry 96 98 Oxygen Delivery Oxygen Flow Rate Fraction of Inspired Oxygen 03/14/25 16:13 Temperature Pulse Rate 81 Respiratory Rate 20 Blood Pressure Pulse Oximetry 96 Oxygen Delivery Nasal Cannula Oxygen Flow Rate 2 Fraction of Inspired Oxygen 28 Exam Const: General: comfortable and no acute distress Other: Able to lie flat HENMT: Face/Nose/Sinus: Normal nares present and no epistaxis Mouth: Yes moist mucous membranes Eyes: Sclera: sclerae normal Pupils: Equal, round and reactive pupils present Neck: Neck: supple and no JVD Carotids: no bruits Resp: Auscultation: clear to auscultation bilaterally and lung sounds not diminished Other: No chest wall tenderness Cardio: Rate: regular rate Rhythm: regular rhythm Heart sounds: no gallops, no murmurs and no rubs GI: GI Palp: Yes Soft to palpation and No Tenderness to palpation present (GI) Auscultation: normal bowel sounds Skin: General skin exam: normal color, rashes and/or lesions noted and no erythema Other: Warm Neuro: Cranial nerves: Yes Equal, round and reactive pupils present Speech: normal speech Other: No obvious focal deficit or facial asymmetry Extrem: General: no edema Other: Normal capillary refills Intact distal pulses. Results Labs and Meds 03/14/25 13:26 03/14/25 13:26 Lab results: Cardiac Enzymes 03/14/25 03/14/25 Range/Units 13:26 15:41 AST 33 (14-36) U/L Troponin I 1.870 H* 4.290 H* D (0.000-0.034) ng/mL Coagulation 03/14/25 Range/Units 13:26 PT 12.6 (11.1-14.7) Seconds APTT 26.3 (22.3-36.8) Seconds CBC 03/14/25 Range/Units 13:26 WBC 14.0 H (4.5-10.0) K/mm3 RBC 4.02 L (4.2-5.4) M/mm3 Hgb 13.4 (12.0-15.0) g/dL Hct 40.6 (37.0-47.0) % Plt Count 296 (150-375) k/mm3 Lymph # (Auto) 0.80 L (0.9-3.2) K/mm3 Mcminn # (Auto) 0.6 (0.1-0.6) K/mm3 Eos # (Auto) 0.0 (0-0.3) K/mm3 Baso # (Auto) 0.0 (0.0-0.1) K/mm3 Comprehensive Metabolic Panel 03/14/25 Range/Units 13:26 Sodium 133 L (137-145) mmol/L Potassium 3.7 (3.4-5.0) mmol/L Chloride 101 (98-107) mmol/L Carbon Dioxide 20 L (22-30) mmol/L BUN 16 (7-17) mg/dL Creatinine 0.70 (0.7-1.0) mg/dL Glucose 128 H (65-110) mg/dL Calcium 10.6 H (8.4-10.2) mg/dL AST 33 (14-36) U/L ALT 10 (6-35) U/L Alkaline Phosphatase 68 (38-126) U/L Total Protein 7.9 (6.3-8.2) g/dL Albumin 4.7 (3.5-5.1) g/dL Patient Weight 03/14/25 23:59 Weight 44 kg
--- NOTE | 2025-03-14 17:24 | WPDCARDPROC ---
Cardiac Cath Procedure Note Date of procedure:: 03/14/25 Performing physician:: Ronen Montoya MD Indication:: STEMI Procedure Procedure performed:: Left heart catheterization and coronary angiogram Sedation/Medication given:: Moderate sedation was done using Versed and fentanyl. Sedation was performed under monitoring by physician and RN. Monitoring of hemodynamics oxygen saturation and respiratory rate that was performed continuously during procedure. At the end of the procedure patient was fully awake Access site:: Right common femoral access Estimated blood loss:: Less than 50 mL Procedure note:: Access site prepped and draped in a sterile fashion Verbal consent was obtained Access was obtained with ultrasound guidance using modified Seldinger technique Right and left coronary angiogram was performed in different views LV-gram was done using pigtail Findings:: Left main is normal Lad showed mid segment 30% stenosis with SABA 3 flow Left circumflex with no obstructive disease RCA with nonobstructive disease dominant vessel LV-gram Apical hypokinesis ejection fraction 35-40% Conclusion:: No obstructive coronary artery disease 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
[2025-03-14 17:35] LABS: MRSA (PCR) NOT DETECTED (NOT DETECTE)
--- NOTE | 2025-03-14 17:47 | ADMGEN ---
This patient, Aspen Boucher, was admitted to Intensive Care Unit-6. Patient/family oriented to hospital policies and general routines including ID bracelet, bed and alarms, visiting hours, pain management, procedures, bathroom and other care routines, personal items, smoking policy, room service/diet, and visiting hours. Information on how to activate the Rapid Response Team has been discussed. Patient/Family are encouraged to report perceived risks to care and to ask questions if they do not understand what they are told or what they should do.
[2025-03-14] MEDS: SODIUM CHLORIDE 0.9% IV 1,000 ML 125 ML IV CONT (18:40)
[2025-03-14 19:59] LABS: Troponin I 3.590 ng/mL (0.000-0.034)
[2025-03-14] MEDS: CARBIDOPA/LEVODOPA 25/100 MG CR TABLET 2 TABLET PO (22:46)
[2025-03-15] VITALS (23 sets, daily range): BP systolic 91–124; BP diastolic 48–76; PULSE 68–93; RESP 14–20; TEMP 36.4–36.7; O2SAT 95–100
--- NOTE | 2025-03-15 | ECHO_ITS ---
Patient Info Name: Aspen Boucher Age: 74 years : 1950 Gender: Female Ht: 25 in Wt: 214 lbs BSA: 1.48 m2 HR: 76 bpm BP: 91 / 48 mmHg Heart Rhythm: Sinus Rhythm Technical Quality: Fair Exam Date: 03/15/2025 3:11 PM Patient Status: I Admit Date: 03/14/2025 Exam Type: CA echo doppler color flow Complete two-dimensional, color flow and Doppler transthoracic echocardiogram is performed. Staff Referring Physician: Margaret Henderson Parachute Cushion Installer: Bebe Hopson Attending Provider: Ronen Montoya Summary 1. Complete two-dimensional, color flow and Doppler transthoracic echocardiogram is performed. 2. Left ventricular systolic function is normal, estimated at 50-55. 3. There is mildly increased left ventricular wall thickness. 4. The left ventricular diastolic function is grade I diastolic dysfunction. 5. The mid anteroseptal, and mid inferolateral wall are hypokinetic. 6. The aortic valve is not well visualized. 7. There is mild aortic valve regurgitation. Left Ventricle Left ventricular chamber dimension is normal. Left ventricular systolic function is normal, estimated at 50-55. There is mildly increased left ventricular wall thickness. The left ventricular diastolic function is grade I diastolic dysfunction. The mid anteroseptal, and mid inferolateral wall are hypokinetic. Right Ventricle Right ventricular chamber dimension is normal. Right ventricular systolic function is normal. Left Atria Left atrial chamber dimension is normal. Right Atria Right atrial chamber dimension is normal. Aortic Valve The aortic valve is not well visualized. There is no aortic valve sclerosis. There is no aortic valve stenosis. There is mild aortic valve regurgitation. Pulmonic Valve The pulmonic valve is normal. There is no pulmonic valve stenosis. There is no pulmonic regurgitation. Mitral Valve The mitral valve has normal leaflets. There is no mitral valve stenosis. There is no mitral valve regurgitation. Tricuspid Valve The tricuspid valve leaflets are normal. There is no significant tricuspid valve stenosis. There is no tricuspid valve regurgitation. Pericardium/Pleural The pericardium appears normal. There is no pericardial effusion. Inferior Vena Cava Normal inferior vena cava with <50% collapse upon inspiration consistent with elevated right atrial pressure, 10 mmHg. Aorta The aortic root size at the sinus of Valsalva is normal. The prox ascending aorta size is normal. Left Ventricular Outflow Tract Name Value Normal LVOT 2D LVOT Diameter 1.9 cm LVOT Doppler LVOT Peak Velocity 123 cm/s LVOT Peak Gradient 4 mmHg LVOT Mean Gradient 2 mmHg LVOT VTI 21 cm LVOT VTI/AV VTI Ratio 0.9 LVOT Stroke Volume 60 ml LVOT CO 4.0 l/min LVOT CI 2.7 l/min/m2 Pulmonic Valve Name Value Normal RVOT Doppler RVOT Peak Velocity 85 cm/s RVOT Peak Gradient 3 mmHg PV Doppler PV Peak Velocity 95 cm/s PV Peak Gradient 4 mmHg Mitral Valve Name Value Normal MV Diastolic Function MV E Peak Velocity 78 cm/s MV A Peak Velocity 95 cm/s MV E/A 0.8 MV Decel Time (PW) 220 ms MV Annular TDI MV E/e' (Septal) 11.3 MV E/e' (Lateral) 11.3 MV E/e' (Average) 11.3 Tricuspid Valve Name Value Normal Estimated PAP/RSVP RA Pressure 10 mmHg <=5 Aortic Valve Name Value Normal AV Doppler AV Peak Velocity 128 cm/s AV Peak Gradient 7 mmHg AV Mean Gradient 3 mmHg AV VTI 23 cm AV Area (Cont Eq VTI) 2.6 cm2 >=3.0 AV Area (Cont Eq Lanre) 2.7 cm2 AV DI (Lanre) 0.96 AV Regurgitation 2D LVOT Area 2.9 cm2 Ventricles Name Value Normal LV Dimensions 2D/MM IVS Diastolic Thickness (2D) 0.9 cm 0.6-1.0 LVID Diastole (2D) 4.6 cm 3.8-5.2 LVIW Diastolic Thickness (2D) 0.9 cm 0.6-0.9 LVID Systole (2D) 3.1 cm 2.2-3.5 LVOT Diameter 1.9 cm LV Mass (2D Cubed) 137.20 g 67.00-162.00 LV Mass Index (2D Cubed) 93 g/m2 43-95 Relative Wall Thickness (2D) 0.37 <=0.42 LV Fractional Shortening/Ejection Fraction 2D/MM LV Fractional Shortening (2D) 33 % 27-45 LV EF (2D Teichholz) 61 % LV Diastolic Volume (4C MOD) 62 ml LV EF (4C MOD) 62 % LV Diastolic Volume (2C MOD) 57 ml LV EF (2C MOD) 67 % LV Diastolic Volume (BP MOD) 60 ml 46-106 LV Diastolic Volume Index (BP MOD) 41 ml/m2 29-61 LV Systolic Volume (BP MOD) 23 ml 14-42 LV Systolic Volume Index (BP MOD) 16 ml/m2 8-24 LV EF (BP MOD) 62 % 54-74 LV Diastolic Length (4C) 6.7 cm LV Systolic Length (4C) 6.4 cm LV Stroke Volume (4C MOD) 39 ml Atria Name Value Normal LA Dimensions LA Volume (4C A-L) 53 ml LA Volume (BP A-L) 37 ml RA Dimensions RA Systolic Major [place] Length (4C) 4.4 cm 2.2-2.8 RA Area (4C) 11.7 cm2 <=18.0 Wall Motion Scoring Report Signatures
--- NOTE | 2025-03-15 08:00 | PM.CNCAR ---
Assessment and Plan Assessment and plan (1) Acute non-ST segment elevation myocardial infarction: Code(s): I21.4 - Non-ST elevation (NSTEMI) myocardial infarction Status: Acute (2) Nonischemic dilated cardiomyopathy: Code(s): I42.0 - Dilated cardiomyopathy Status: Acute (3) Hyperparathyroidism: Code(s): E21.3 - Hyperparathyroidism, unspecified Status: Acute (4) Parkinson's disease: Code(s): G20 - Parkinson's disease Status: Acute Plan Assessment: 1. Acute non ST segment elevation myocardial infarction: 74-year-old female without any previous cardiac problems 1000 with crushing chest pain associated with elevated cardiac enzymes and EKG changes. I specifically did show significant ST segment elevation. Subsequent cardiac catheterization revealed 30% lad disease and reduced systolic function in range of 30-35%. The differential diagnosis may include -Acute vasospastic disease in the LAD followed by chest pain and myocardial injury he subsequently on reduced ejection fraction due to stunned myocardium -Acute stress-induced cardiomyopathy. Generally seen in younger female patient. Echocardiogram should help to rule out takotsubo cardiomyopathy. 2. Nonischemic dilated cardiomyopathy. 3. Hypotension with blood pressure as low as 96/54 mm of mercury. 4. History of Parkinson's disease, hyperparathyroidism. 5. Aneurysmal dilatation of ascending aorta measuring 4.4 cm. Recommendations: 1. Clinically patient is stable without shortness of breath or chest pain. BNP done this morning was 4660. Clinically patient appears to be without fluid overload at this time. 2. Echocardiogram is pending to rule out takotsubo cardiomyopathy. 3. Blood pressure remains low at 96/54 mm of mercury which limits starting patient on guideline directed medical therapy. Patient currently on aspirin 81 mg daily, atorvastatin 20 mg at bedtime. Carbidopa levodopa per home dose. Will start patient on midodrine 5 mg t.i.d. for hypotension. More recent blood pressures are improved to 124/76 mm of mercury. In view of elevated BNP and now improved blood pressure will discontinue IV fluids. Patient is concerned about starting the mitral drain and will also hold it as long as the blood pressure is stable. 4. Admitting chest x-ray was negative for acute cardiac findings and normal cardiac size. CT scan of the chest and abdomen with CT angiogram was negative for any acute aortic dissection. Incidental finding noted with aneurysm of ascending aorta measuring 4.4 cm. No other significant findings noted 5. Consult hospitalist Service for Parkinson's. . History of Present Illness History of Present Illness Consult date/time: 03/15/25 08:00 Reason For Visit: NSTEMI Narrative: No female with history of Parkinson's disease, abdominal aortic aneurysm presented to the emergency room with complaints of chest pain. Apparently at about 11:00 a.m. in the morning she had a sudden onset of severe crushing chest pain in the midsternum radiating through her back and across the upper shoulder. Patient felt extremely weak, short of breath and fatigued. Patient also felt a CP she has could pass out. Subsequently EMS was called and was given aspirin and nitroglycerin spray. There was some improvement of chest pain. Once in the emergency room her chest pain had improved. No history of previous myocardial infarction, history of angina or congestive heart failure. No complaints of fever or chills. No complaints of arm pain or shortness of breath or diaphoresis. No complaints of fever or chills. No complaints of abdominal pain nausea vomiting or diarrhea. Admitting blood pressure was 117/68 mm of mercury his heart rate was 97 per minute. Patient was afebrile and O2 saturation was 99% Admitting laboratory data oral device count 14,000 hemoglobin is 13.4 platelets are normal. Sodium 133, potassium is 3.7, BUN 16 creatinine 0.7. ProBNP is pending. Admitting EKG to pull the normal sinus rhythm with hyperacute T changes in the lateral leads possible inferior wall myocardial infarction. Patient had urgent cardiac catheterization done on 03/14/2020 by with SABA 3 flow and reduced ejection fraction range of 35-40%. Post procedure patient continued to have low blood pressure and was started on IV fluids. Patient examined at the bedside. Patient is awake alert and appears comfortable sitting in the chair. No complaints of shortness of breath chest pain. Blood pressure is slowly improving. Review of Systems Review of Systems: Twelve point review of system was completed. Pertinent positive and negative findings per HPI. Constitutional negative for fever chills, weight loss or diaphoresis. Head and neck review of system is negative. Cardiovascular positive for chest pain radiating to back. Negative for shortness of breath or palpitation. Pulmonary negative for shortness of breath, cough or hemoptysis. Gastrointestinal negative for abdominal pain, nausea vomiting or diarrhea. Neurovascular negative for focal weakness, dizziness, syncope, seizures or recurrent falls. Skin and musculoskeletal are negative. FOR[facility]LY [facility], [facility] Past Medical History Medical History AAA (abdominal aortic aneurysm) Hypotension Depression Anxiety History of colon polyps Parkinson's disease Chronic idiopathic constipation Kidney stone Smoking addiction Hyperparathyroidism Vitamin D deficiency Osteoporosis GERD (gastroesophageal reflux disease) IBS (irritable bowel syndrome) Surgical History Surgical History Status post deep brain stimulator placement 02/03/24 and 02/12/24 S/P endometrial ablation History of appendectomy 2019 Family History Family History Father Family history of malignant neoplasm of stomach Family history of malignant neoplasm Cancer Sibling Family history of malignant melanoma Son Cancer Other Alcoholism Social History Social History Smoking packs per day: 1.5 Smoking cigarettes per day: 30.0 Years smoked: 50 Smoking pack-years: 75.00 Smoking status: Current every day smoker Tobacco type: cigarettes Second hand tobacco smoke exposure: Yes Alcohol intake: never Alcohol use details: rarely Substance use: never Substance use type: does not use Do You Feel Safe in your Home?: Yes Lack of Transportation: No Lack of Food: Never True Current Housing: I Have Housing Concerned About Future Housing: No Difficulty Paying Gas/Electric Bills: No Difficulty Paying for Meds: No Currently Unemployed: No Education: Associate Degree Difficulty w/ Childcare or Family Care: No Living arrangements: with family Spiritual care concerns: No Meds Home Medications and Allergies Home Medications ?Medication ?Instructions ?Recorded ?Confirmed ?Type acetaminophen 650 mg 650 mg PO Q12H 10/11/20 03/14/25 History tablet,extended release (Tylenol 8 Hour) carbidopa ER 50 mg-levodopa 200 mg 1 tablet PO QHS 10/11/20 03/14/25 History tablet,extended release cholecalciferol (vitamin D3) 25 2,000 unit PO DAILY 02/01/22 03/14/25 History mcg (1,000 unit) capsule lorazepam 0.5 mg tablet 0.5 mg PO TID PRN Anxiety 02/01/22 03/14/25 History lactulose 10 gram/15 mL oral See Rx Instructions .Route 10/29/23 03/14/25 Rx solution .COMPLEX #2,838 mL carbidopa ER 25 mg-levodopa 100 mg 1 tablet PO TID 03/23/24 03/15/25 History tablet,extended release zoledronic acid 5 mg/100 mL in 1 ea IV DIRECTED 03/23/24 03/14/25 History mannitol 5 %-water intravenous piggybck (Reclast) tramadol 50 mg tablet 50 mg PO DAILY PRN pain 03/14/25 03/14/25 History carbidopa 25 mg-levodopa 100 mg 1 tablet PO QID 03/15/25 03/15/25 History tablet Allergies Allergy/AdvReac Type Severity Reaction Status Date / Time gentamicin Allergy Intermediate Swelling Verified 03/14/25 17:51 Iodinated Contrast Media Allergy Hives Verified 03/14/25 17:51 Vital Signs Vital Signs - 24 hr 03/14/25 13:29 03/14/25 13:54 03/14/25 14:45 Temperature 36.9 C Pulse Rate 97 83 89 Pulse Rate [Monitor] Respiratory Rate 20 16 18 Blood Pressure 117/68 149/84 H Pulse Oximetry 98 100 Oxygen Delivery Room Air Oxygen Flow Rate Fraction of Inspired Oxygen 03/14/25 15:00 03/14/25 15:00 03/14/25 15:01 Temperature Pulse Rate 85 85 84 Pulse Rate [Monitor] Respiratory Rate 16 15 17 Blood Pressure 112/75 112/75 Pulse Oximetry 98 Oxygen Delivery Oxygen Flow Rate Fraction of Inspired Oxygen 03/14/25 15:15 03/14/25 15:16 03/14/25 15:30 Temperature Pulse Rate 81 84 80 Pulse Rate [Monitor] Respiratory Rate 15 17 15 Blood Pressure 118/74 113/74 Pulse Oximetry 98 98 96 Oxygen Delivery Oxygen Flow Rate Fraction of Inspired Oxygen 03/14/25 15:31 03/14/25 15:55 03/14/25 16:11 Temperature Pulse Rate 77 82 84 Pulse Rate [Monitor] Respiratory Rate 19 20 18 Blood Pressure 125/77 Pulse Oximetry 96 98 Oxygen Delivery Oxygen Flow Rate Fraction of Inspired Oxygen 03/14/25 16:13 03/14/25 17:47 03/14/25 18:00 Temperature 36.6 C Pulse Rate 81 76 72 Pulse Rate [Monitor] 66 Respiratory Rate 20 14 20 Blood Pressure 126/77 132/78 Pulse Oximetry 96 98 98 Oxygen Delivery Nasal Cannula Oxygen Flow Rate 2 Fraction of Inspired Oxygen 28 03/14/25 18:00 03/14/25 18:01 03/14/25 18:16 Temperature Pulse Rate 76 74 76 Pulse Rate [Monitor] 74 78 Respiratory Rate 20 18 Blood Pressure 129/76 132/78 Pulse Oximetry 97 98 Oxygen Delivery Oxygen Flow Rate Fraction of Inspired Oxygen 03/14/25 18:46 03/14/25 19:16 03/14/25 20:00 Temperature 36.4 C Pulse Rate 76 78 71 Pulse Rate [Monitor] 76 78 Respiratory Rate 18 18 16 Blood Pressure 127/77 107/60 101/59 L Pulse Oximetry 99 96 97 Oxygen Delivery Oxygen Flow Rate Fraction of Inspired Oxygen 03/14/25 20:00 03/14/25 20:00 03/14/25 20:16 Temperature Pulse Rate 71 67 Pulse Rate [Monitor] 67 Respiratory Rate 18 Blood Pressure 104/63 Pulse Oximetry 98 Oxygen Delivery Room Air Oxygen Flow Rate Fraction of Inspired Oxygen 03/14/25 21:16 03/14/25 22:00 03/14/25 22:00 Temperature Pulse Rate 77 76 76 Pulse Rate [Monitor] 77 Respiratory Rate 16 18 Blood Pressure 110/66 115/69 Pulse Oximetry 98 98 Oxygen Delivery Oxygen Flow Rate Fraction of Inspired Oxygen 03/14/25 22:16 03/14/25 23:16 03/15/25 00:00 Temperature Pulse Rate 76 74 Pulse Rate [Monitor] 77 74 Respiratory Rate 15 16 Blood Pressure 117/69 113/76 Pulse Oximetry 98 97 Oxygen Delivery Room Air Oxygen Flow Rate Fraction of Inspired Oxygen 03/15/25 00:00 03/15/25 00:00 03/15/25 02:00 Temperature 36.6 C Pulse Rate 81 81 79 Pulse Rate [Monitor] Respiratory Rate 18 17 Blood Pressure 110/64 121/75 Pulse Oximetry 98 97 Oxygen Delivery Oxygen Flow Rate Fraction of Inspired Oxygen 03/15/25 02:00 03/15/25 03:00 03/15/25 04:00 Temperature Pulse Rate 79 83 79 Pulse Rate [Monitor] Respiratory Rate 17 Blood Pressure 109/58 L Pulse Oximetry 96 Oxygen Delivery Oxygen Flow Rate Fraction of Inspired Oxygen 03/15/25 04:00 03/15/25 04:00 03/15/25 05:00 Temperature 36.6 C Pulse Rate 80 74 Pulse Rate [Monitor] Respiratory Rate 16 20 Blood Pressure 102/58 L 96/57 L Pulse Oximetry 96 95 Oxygen Delivery Room Air Oxygen Flow Rate Fraction of Inspired Oxygen 03/15/25 06:00 03/15/25 06:21 03/15/25 07:00 Temperature 36.7 C Pulse Rate 76 76 72 Pulse Rate [Monitor] Respiratory Rate 20 18 Blood Pressure 91/48 L 92/64 L Pulse Oximetry 99 100 Oxygen Delivery Oxygen Flow Rate Fraction of Inspired Oxygen Exam Narrative: Patient was examined at bedside. Patient is awake alert and appears comfortable without any acute distress. Oriented x3. Normal cephalic and normal build. Head and neck examination is unremarkable. Head is atraumatic. Sclerae is nonicteric. ENT examination is negative. Neck is supple. There is no JVD or carotid bruit. Thyroid is not enlarged. There is no cervical adenopathy. Lungs are clear to auscultation percussion. Breathing is nonlabored. There is still crepitation or wheezing Cardiovascular positive for S1-S2 there is no significant murmurs S3-S4. Abdomen is soft and nontender. There is no hepatosplenomegaly. Bowel sounds present throughout Extremities reveal no pedal edema. Neurological examination is intact. Results Labs and Meds 03/15/25 08:34 03/15/25 08:34 Lab results: Cardiac Enzymes 03/14/25 03/14/25 03/14/25 Range/Units 13:26 15:41 19:21 AST 33 (14-36) U/L Troponin I 1.870 H* 4.290 H* D 3.590 H* (0.000-0.034) ng/mL Coagulation 03/14/25 Range/Units 13:26 PT 12.6 (11.1-14.7) Seconds APTT 26.3 (22.3-36.8) Seconds CBC 03/14/25 Range/Units 13:26 WBC 14.0 H (4.5-10.0) K/mm3 RBC 4.02 L (4.2-5.4) M/mm3 Hgb 13.4 (12.0-15.0) g/dL Hct 40.6 (37.0-47.0) % Plt Count 296 (150-375) k/mm3 Lymph # (Auto) 0.80 L (0.9-3.2) K/mm3 Loving # (Auto) 0.6 (0.1-0.6) K/mm3 Eos # (Auto) 0.0 (0-0.3) K/mm3 Baso # (Auto) 0.0 (0.0-0.1) K/mm3 Comprehensive Metabolic Panel 03/14/25 Range/Units 13:26 Sodium 133 L (137-145) mmol/L Potassium 3.7 (3.4-5.0) mmol/L Chloride 101 (98-107) mmol/L Carbon Dioxide 20 L (22-30) mmol/L BUN 16 (7-17) mg/dL Creatinine 0.70 (0.7-1.0) mg/dL Glucose 128 H (65-110) mg/dL Calcium 10.6 H (8.4-10.2) mg/dL AST 33 (14-36) U/L ALT 10 (6-35) U/L Alkaline Phosphatase 68 (38-126) U/L Total Protein 7.9 (6.3-8.2) g/dL Albumin 4.7 (3.5-5.1) g/dL Intake and Output 03/14/25 03/15/25 03/15/25 23:59 07:59 15:59 Intake Total 1500 Output Total 650 900 Balance -650 600 Intake: IV 1000 Sodium Chloride 0.9% IV 1,000 1000 ml @ 125 mls/hr IV CONT .Q8H ONE Rx#:[id number] Oral 500 Output: Urine 650 900 Patient Weight 03/15/25 23:59 Weight 47.6 kg
[2025-03-15 08:44] LABS: Hematocrit 38.4 % (37.0-47.0); Hemoglobin 12.9 g/dL (12.0-15.0); Mean Corpuscular HGB Conc 33.6 g/dl (32-36); Mean Corpuscular Hemoglobin 33.2 pg (26-34); Mean Corpuscular Volume 99.0 fl (80-100); Platelet Count Result 283 k/mm3 (150-375); Red Blood Count 3.88 M/mm3 (4.2-5.4); White Blood Count 18.4 K/mm3 (4.5-10.0)
[2025-03-15] MEDS: LACTULOSE 20 GM/30 ML UDC 10 GM PO ×2 (08:57→16:04)
[2025-03-15] MEDS: CARBIDOPA/LEVODOPA 25/100 MG TABLET 1 TABLET PO ×3 (08:58→16:04)
--- NOTE | 2025-03-15 09:04 | WPDCNINT ---
Assessment and Plan Assessment and plan (1) Stress-induced cardiomyopathy: Code(s): I51.81 - Takotsubo syndrome Status: Acute Assessment and Plan: Patient presented with chest pain with abnormal EKG and elevated troponin. Cardiac catheterization negative for any coronary disease but Lgram consistent with stress-induced cardiomyopathy with apical hypokinesis. Echo was ordered and is pending. Continue aspirin. Start statin. Hold OFX RVR beta-meredith at this time due to soft blood pressure. Cardiology following Further management as per Cardiology Obtain records from [facility] for past echocardiograms to review (2) Acute non-ST segment elevation myocardial infarction: Code(s): I21.4 - Non-ST elevation (NSTEMI) myocardial infarction Status: Acute Assessment and Plan: See above (3) Nonischemic dilated cardiomyopathy: Code(s): I42.0 - Dilated cardiomyopathy Status: Acute Assessment and Plan: See above (4) Ascending aortic aneurysm: Code(s): I71.21 - Aneurysm of the ascending aorta, without rupture Status: Acute Assessment and Plan: Appears to be similar to baseline with no dissection on the CT scan. Monitor. (5) Parkinson's disease: Code(s): G20 - Parkinson's disease Status: Acute Assessment and Plan: Continue Sinemet (6) Smoking addiction: Code(s): F17.200 - Nicotine dependence, unspecified, uncomplicated Status: Acute Assessment and Plan: Patient was counseled and encouraged to quit smoking (7) Constipation: Code(s): K59.00 - Constipation, unspecified Status: Acute Assessment and Plan: Continue lactulose. Start MiraLax. Plan DVT prophylaxis -Lovenox Nutrition -diet ordered Code Status - Full Code Incentive spirometry, transfer out of ICU today [facility] [facility] Consult Note Consult date: 03/15/25 Reason for consult: STEMI HPI: Aspen Boucher is a 74 year old female with past medical history of ascending aortic aneurysm, Parkinson's disease presented to ER yesterday with chief complaint of chest pain. Patient normally receives her care through [facility] but yesterday she was at grocery store when she started feeling dizzy and weak. She states that she did not lose her consciousness or fall. Then in a parking lot she felt squeezing chest pain in the middle of chest which she rated at 10 out 10. Pain radiated to her neck and shoulders. She denies any nausea vomiting shortness of breath palpitation. She states she felt like she was squeezed by a wrestler. Prior to this incident she was feeling fine and denies any dyspnea on exertion or chest pain on exertion. She states the past workup was in spring although she does not know all the details. She does see a accountant manager and cardiothoracic surgeon regularly. She also smokes 1/2 pack per day cigarettes. She takes her medications regularly. All other systems were reviewed and were negative. In the ER patient was found to be having elevated troponin with abnormal EKG his CTA chest abdomen pelvis was done which showed unchanged ascending aortic aneurysm with no dissection. Cardiology was consulted and patient was taken to cardiac catheterization lab. Patient underwent cardiac catheterization which showed no significant coronary disease with only 30% stenosis of LAD. LVgram showed finding consistent of stress-induced cardiomyopathy. Postprocedure patient was admitted to ICU for further evaluation management. This morning she states she feels better and her pain has resolved she would like to be discharged. When asked if she had any new stress situations patient states that she was recently diagnosed with macular degeneration about a week ago. She also states that she has a stressful life because of health problems of her . Apart from smoking she denies any alcohol use or marijuana use. No other drug use. All other systems were reviewed and were negative. Review of Systems Review of Systems: All systems reviewed & are unremarkable except as noted in HPI and below (HPI) [facility] Past Medical History Medical History AAA (abdominal aortic aneurysm) Hypotension Depression Anxiety History of colon polyps Parkinson's disease Chronic idiopathic constipation Kidney stone Smoking addiction Hyperparathyroidism Vitamin D deficiency Osteoporosis GERD (gastroesophageal reflux disease) IBS (irritable bowel syndrome) Surgical History Surgical History Status post deep brain stimulator placement 02/03/24 and 02/12/24 S/P endometrial ablation History of appendectomy 2019 Family History Family History Father Family history of malignant neoplasm of stomach Family history of malignant neoplasm Cancer Sibling Family history of malignant melanoma Son Cancer Other Alcoholism Social History Social History Smoking packs per day: 1.5 Smoking cigarettes per day: 30.0 Years smoked: 50 Smoking pack-years: 75.00 Smoking status: Current every day smoker Tobacco type: cigarettes Second hand tobacco smoke exposure: Yes Alcohol intake: never Alcohol use details: rarely Substance use: never Substance use type: does not use Do You Feel Safe in your Home?: Yes Lack of Transportation: No Lack of Food: Never True Current Housing: I Have Housing Concerned About Future Housing: No Difficulty Paying Gas/Electric Bills: No Difficulty Paying for Meds: No Currently Unemployed: No Education: Associate Degree Difficulty w/ Childcare or Family Care: No Living arrangements: with family Spiritual care concerns: No Meds Home Medications and Allergies Home Medications ?Medication ?Instructions ?Recorded ?Confirmed ?Type acetaminophen 650 mg 650 mg PO Q12H 10/11/20 03/14/25 History tablet,extended release (Tylenol 8 Hour) carbidopa ER 50 mg-levodopa 200 mg 1 tablet PO QHS 10/11/20 03/14/25 History tablet,extended release cholecalciferol (vitamin D3) 25 2,000 unit PO DAILY 02/01/22 03/14/25 History mcg (1,000 unit) capsule lorazepam 0.5 mg tablet 0.5 mg PO TID PRN Anxiety 02/01/22 03/14/25 History lactulose 10 gram/15 mL oral See Rx Instructions .Route 10/29/23 03/14/25 Rx solution .COMPLEX #2,838 mL carbidopa ER 25 mg-levodopa 100 mg 1 tablet PO TID 03/23/24 03/14/25 History tablet,extended release zoledronic acid 5 mg/100 mL in 1 ea IV DIRECTED 03/23/24 03/14/25 History mannitol 5 %-water intravenous piggybck (Reclast) tramadol 50 mg tablet 50 mg PO DAILY PRN pain 03/14/25 03/14/25 History Allergies Allergy/AdvReac Type Severity Reaction Status Date / Time gentamicin Allergy Intermediate Swelling Verified 03/14/25 17:51 Iodinated Contrast Media Allergy Hives Verified 03/14/25 17:51 Vital Signs Vital Signs - 24 hr 03/14/25 13:29 03/14/25 13:54 03/14/25 14:45 Temperature 36.9 C Pulse Rate 97 83 89 Pulse Rate [Monitor] Respiratory Rate 20 16 18 Blood Pressure 117/68 149/84 H Pulse Oximetry 98 100 Oxygen Delivery Room Air Oxygen Flow Rate Fraction of Inspired Oxygen 03/14/25 15:00 03/14/25 15:00 03/14/25 15:01 Temperature Pulse Rate 85 85 84 Pulse Rate [Monitor] Respiratory Rate 16 15 17 Blood Pressure 112/75 112/75 Pulse Oximetry 98 Oxygen Delivery Oxygen Flow Rate Fraction of Inspired Oxygen 03/14/25 15:15 03/14/25 15:16 03/14/25 15:30 Temperature Pulse Rate 81 84 80 Pulse Rate [Monitor] Respiratory Rate 15 17 15 Blood Pressure 118/74 113/74 Pulse Oximetry 98 98 96 Oxygen Delivery Oxygen Flow Rate Fraction of Inspired Oxygen 03/14/25 15:31 03/14/25 15:55 03/14/25 16:11 Temperature Pulse Rate 77 82 84 Pulse Rate [Monitor] Respiratory Rate 19 20 18 Blood Pressure 125/77 Pulse Oximetry 96 98 Oxygen Delivery Oxygen Flow Rate Fraction of Inspired Oxygen 03/14/25 16:13 03/14/25 17:47 03/14/25 18:00 Temperature 36.6 C Pulse Rate 81 76 72 Pulse Rate [Monitor] 66 Respiratory Rate 20 14 20 Blood Pressure 126/77 132/78 Pulse Oximetry 96 98 98 Oxygen Delivery Nasal Cannula Oxygen Flow Rate 2 Fraction of Inspired Oxygen 28 03/14/25 18:00 03/14/25 18:01 03/14/25 18:16 Temperature Pulse Rate 76 74 76 Pulse Rate [Monitor] 74 78 Respiratory Rate 20 18 Blood Pressure 129/76 132/78 Pulse Oximetry 97 98 Oxygen Delivery Oxygen Flow Rate Fraction of Inspired Oxygen 03/14/25 18:46 03/14/25 19:16 03/14/25 20:00 Temperature 36.4 C Pulse Rate 76 78 71 Pulse Rate [Monitor] 76 78 Respiratory Rate 18 18 16 Blood Pressure 127/77 107/60 101/59 L Pulse Oximetry 99 96 97 Oxygen Delivery Oxygen Flow Rate Fraction of Inspired Oxygen 03/14/25 20:00 03/14/25 20:00 03/14/25 20:16 Temperature Pulse Rate 71 67 Pulse Rate [Monitor] 67 Respiratory Rate 18 Blood Pressure 104/63 Pulse Oximetry 98 Oxygen Delivery Room Air Oxygen Flow Rate Fraction of Inspired Oxygen 03/14/25 21:16 03/14/25 22:00 03/14/25 22:00 Temperature Pulse Rate 77 76 76 Pulse Rate [Monitor] 77 Respiratory Rate 16 18 Blood Pressure 110/66 115/69 Pulse Oximetry 98 98 Oxygen Delivery Oxygen Flow Rate Fraction of Inspired Oxygen 03/14/25 22:16 03/14/25 23:16 03/15/25 00:00 Temperature Pulse Rate 76 74 Pulse Rate [Monitor] 77 74 Respiratory Rate 15 16 Blood Pressure 117/69 113/76 Pulse Oximetry 98 97 Oxygen Delivery Room Air Oxygen Flow Rate Fraction of Inspired Oxygen 03/15/25 00:00 03/15/25 00:00 03/15/25 02:00 Temperature 36.6 C Pulse Rate 81 81 79 Pulse Rate [Monitor] Respiratory Rate 18 17 Blood Pressure 110/64 121/75 Pulse Oximetry 98 97 Oxygen Delivery Oxygen Flow Rate Fraction of Inspired Oxygen 03/15/25 02:00 03/15/25 03:00 03/15/25 04:00 Temperature Pulse Rate 79 83 79 Pulse Rate [Monitor] Respiratory Rate 17 Blood Pressure 109/58 L Pulse Oximetry 96 Oxygen Delivery Oxygen Flow Rate Fraction of Inspired Oxygen 03/15/25 04:00 03/15/25 04:00 03/15/25 05:00 Temperature 36.6 C Pulse Rate 80 74 Pulse Rate [Monitor] Respiratory Rate 16 20 Blood Pressure 102/58 L 96/57 L Pulse Oximetry 96 95 Oxygen Delivery Room Air Oxygen Flow Rate Fraction of Inspired Oxygen 03/15/25 06:00 03/15/25 06:21 03/15/25 07:00 Temperature 36.7 C Pulse Rate 76 76 72 Pulse Rate [Monitor] Respiratory Rate 20 18 Blood Pressure 91/48 L 92/64 L Pulse Oximetry 99 100 Oxygen Delivery Oxygen Flow Rate Fraction of Inspired Oxygen 03/15/25 08:00 Temperature Pulse Rate 82 Pulse Rate [Monitor] Respiratory Rate 18 Blood Pressure 96/54 L Pulse Oximetry 98 Oxygen Delivery Oxygen Flow Rate Fraction of Inspired Oxygen Exam Narrative: General: Pt is alert awake and in NAD Lungs/Chest: Trachea central Clear BS B/L, No crackles or wheezing. Cardiac: RRR. Normal S1 S2. No murmurs Circulation: Pedal pulses are intact and symmetrical. Abdomen: Normal bowel sounds.. Soft. NT. ND. Extremities: No clubbing, cyanosis or edema. Warm right groin cath site showed no swelling or hematoma : Chou in place Neurologic: Follows commands. Moves all 4 extremities PERRL AO x3 Skin: No Rash Results Labs 03/15/25 08:34 03/14/25 13:26 Labs: Impressions Chest X-Ray 03/14/25 13:43 IMPRESSION: 1. No acute cardiopulmonary findings. Chest/Abdomen/Pelvis CTA 03/14/25 15:14 IMPRESSION: 1. No aneurysm or dissection identified. No acute process. 2. Incidental findings above Short CBC 03/14/25 03/15/25 Range/Units 13:26 08:34 WBC 14.0 H 18.4 H (4.5-10.0) K/mm3 Hgb 13.4 12.9 (12.0-15.0) g/dL Hct 40.6 38.4 (37.0-47.0) % Plt Count 296 283 (150-375) k/mm3 BMP 03/14/25 13:26 Sodium 133 L Potassium 3.7 Chloride 101 Carbon Dioxide 20 L BUN 16 Creatinine 0.70 Glucose 128 H Calcium 10.6 H Cardiac Enzymes 03/14/25 03/14/25 03/14/25 Range/Units 13:26 15:41 19:21 Troponin I 1.870 H* 4.290 H* D 3.590 H* (0.000-0.034) ng/mL Liver Function 03/14/25 Range/Units 13:26 Total Bilirubin 0.6 (0.2-1.3) mg/dL AST 33 (14-36) U/L ALT 10 (6-35) U/L Alkaline Phosphatase 68 (38-126) U/L Albumin 4.7 (3.5-5.1) g/dL Quality VTE Prophylaxis VTE prophylaxis: pharmacologic ordered Hospitalist [facility] Advance Care Plan I have confirmed that the patient's Advanced Care Plan is present, code status is documented, or surrogate decision maker is listed in patient medical record.: Yes Medication Reconciliation I have utilized all available resources to obtain, update and review the patients current medications (includes all prescriptions, OTC, herbals, cannabis, and nutritional supplements).: Yes
[2025-03-15 09:14] LABS: Alanine Aminotransferase 12 U/L (6-35); Albumin Level 4.2 g/dL (3.5-5.1); Alkaline Phosphatase 50 U/L (38-126); Anion Gap 11 mmol/L (4-12); Aspartate Amino Transferase 40 U/L (14-36); Bilirubin,Total 0.5 mg/dL (0.2-1.3); Blood Urea Nitrogen 13 mg/dL (7-17); Calcium 10.2 mg/dL (8.4-10.2); Carbon Dioxide 21 mmol/L (22-30); Chloride 102 mmol/L (98-107); Estimated CRCL calculation 53 ml/min; Estimated Glomerular Filt Rate > 60; Glucose 197 mg/dL (65-110); Magnesium 1.7 mg/dL (1.6-2.3); Potassium 4.2 mmol/L (3.4-5.0); Sodium 134 mmol/L (137-145); Total Protein 7.1 g/dL (6.3-8.2)
[2025-03-15 09:18] LABS: NT Pro B Type Natriuretic Pept 4660 pg/mL (19.9-100)
[2025-03-15 09:38] LABS: Thyroid Stimulating Hormone Reflex 0.351 uIU/mL (0.465-4.68)
[2025-03-15] MEDS: ACETAMINOPHEN 325 MG TABLET 650 MG PO ×2 (09:58→20:51)
[2025-03-15 10:14] LABS: Free T4 Free Thyroxine Reflex 1.46 ng/dL (0.78-2.19)
[2025-03-15 11:03] LABS: Total Triiodothyronine (T3) 0.62 NG/ML (0.82-1.58)
[2025-03-15] MEDS: FAMOTIDINE 20 MG/2 ML VIAL 40 MG IV PUSH (16:04)
--- NOTE | 2025-03-15 20:05 | PM.IMCN ---
Assessment and Plan Assessment and plan (1) Stress-induced cardiomyopathy: Code(s): I51.81 - Takotsubo syndrome Status: Acute Assessment and Plan: Patient initially presented on 03/14 with acute retrosternal chest pain. Initial workup concerning for STEMI and elevated troponin. scientific laboratory supervisor was emergently activated, see cardiac catheterization results below. Findings more so concerning for stressed induced cardiomyopathy with apical hypokinesis. - echo, 03/15: LV systolic function normal, estimated EF 50-55%, mildly increased LV wall thickness, diastolic function grade 1, mid anteroseptal and mid inferior lateral wall are hypokinetic, AV not well visualized but appears to have mild regurgitation - continue aspirin, start statin - hold beta-meredith, BP soft and was started on midodrine. States she will not likely take the medication (midodrine) as her blood pressure has previously varied and has varied while she is here. Recommended discussion with the cardiac team. - cardiology consulted, see notes - obtaining records from [facility] for review of past echocardiograms, also reports there are reports at [place] in [place] (2) ST elevation (STEMI) myocardial infarction: Qualifiers: Involved coronary artery: unspecified coronary artery Qualified Code(s): I21.3 - ST elevation (STEMI) myocardial infarction of unspecified site Code(s): I21.3 - ST elevation (STEMI) myocardial infarction of unspecified site Status: Acute Assessment and Plan: - see above - troponin: 1.87 -> 4.29 -> 3.59 - cardiac catheterization, 03/14: LV-gram Apical hypokinesis ejection fraction 35-40% Conclusion:: No obstructive coronary artery disease Left ventricular systolic dysfunction consistent with a stress-induced myopathy (3) Nonischemic dilated cardiomyopathy: Code(s): I42.0 - Dilated cardiomyopathy Status: Acute Assessment and Plan: - see above (4) Ascending aortic aneurysm: Qualifiers: Presence of rupture: without rupture Qualified Code(s): I71.21 - Aneurysm of the ascending aorta, without rupture Code(s): I71.21 - Aneurysm of the ascending aorta, without rupture Status: Acute Assessment and Plan: - CTA chest/abdomen/pelvis, 03/14: There is aneurysmal dilatation of the ascending aorta maximally measuring 4.4 cm. Mild atherosclerotic changes noted of the thoracic aorta and abdominal aorta with ectasia but no aneurysm. - appears to be similar to baseline with no dissection on CT scan neck, monitoring (5) Parkinson's disease: Qualifiers: Dyskinesia presence: unspecified whether dyskinesia Fluctuating manifestations: without fluctuating manifestations Qualified Code(s): G20.A1 - Parkinson's disease without dyskinesia, without mention of fluctuations Code(s): G20 - Parkinson's disease Status: Chronic Assessment and Plan: - continue Sinemet (6) Smoking addiction: Code(s): F17.200 - Nicotine dependence, unspecified, uncomplicated Status: Acute Assessment and Plan: - has been counseled on smoking cessation (7) Constipation: Qualifiers: Constipation type: chronic idiopathic constipation Qualified Code(s): K59.04 - Chronic idiopathic constipation Code(s): K59.00 - Constipation, unspecified Status: Chronic Assessment and Plan: - continue lactulose - started on MiraLax on 03/15 Plan Diet: Heart healthy GI Prophylaxis: N/a DVT Prophylaxis: SCDs IV fluids: 125 mL/hour x1 L, completed Lines/Tubes: Peripheral IV Code Status: Full code HPI Date of Consult Consult date: 03/15/25 Requesting Physician: Ronen Montoya MD Primary Care Provider: Roxie Meadows MD Consult Narrative Reason for consult: Medical managment of existing disease processes while inpatient. Narrative: 74 y/o F with PMH of AAA, anxiety/depression, Parkinson's, kidney stones, hyperparathyroidism, osteoporosis, GERD, IBS and here with STEMI. The patient presents here on 03/14 with an acute episode of chest pain. Pain started at 10:30 a.m. same day. She described the chest pain as severe, retrosternal, radiation into bilateral shoulders, pressure, and a squeezing quality. She reported accompanying diaphoresis, dizziness, shortness of breath, significant generalized weakness/fatigue. Denied nausea or vomiting. Unsure if she had palpitations as the pain was so distracting/significant. She reports increased stress over the past year and half, however head no acute precipitating stressors. Initial evaluation in the ED showed significant change with elevation in the anterior leads which prompted the cardiac catheterization lab to be activated. Cardiac catheterization showed 30% stenosis of the LAD mid segment, apical hypokinesis, EF 35-40%. Findings concerning for left ventricular systolic dysfunction consistent with a stress induced myopathy. Initial VS at presentation: 98.4? F, HR 97, RR 20, 117/68, and 98% on RA. ED workup showed: WBC 14.0, no anemia, normal coags, sodium 133, creatinine 0.7 and GFR >60, glucose 128, calcium 10.6, initial troponin 1.8 with a peak of 4.29. CXR showed no acute cardiopulmonary findings. CTA of the chest/abdomen/pelvis showed no aneurysm or dissection, no acute process, incidental finding (see report). Review of Systems Review of Systems: All systems reviewed & are unremarkable except as noted in HPI and below [facility] Past Medical History Medical History AAA (abdominal aortic aneurysm) Hypotension Depression Anxiety History of colon polyps Parkinson's disease Chronic idiopathic constipation Kidney stone Smoking addiction Hyperparathyroidism Vitamin D deficiency Osteoporosis GERD (gastroesophageal reflux disease) IBS (irritable bowel syndrome) Surgical History Surgical History Status post deep brain stimulator placement 02/03/24 and 02/12/24 S/P endometrial ablation History of appendectomy 2018 Family History Family History Father Family history of malignant neoplasm of stomach Family history of malignant neoplasm Cancer Sibling Family history of malignant melanoma Son Cancer Other Alcoholism Social History Social History Smoking packs per day: 1.5 Smoking cigarettes per day: 30.0 Years smoked: 50 Smoking pack-years: 75.00 Smoking status: Current every day smoker Tobacco type: cigarettes Second hand tobacco smoke exposure: Yes Alcohol intake: never Alcohol use details: rarely Substance use: never Substance use type: does not use Do You Feel Safe in your Home?: Yes Lack of Transportation: No Lack of Food: Never True Current Housing: I Have Housing Concerned About Future Housing: No Difficulty Paying Gas/Electric Bills: No Difficulty Paying for Meds: No Currently Unemployed: No Education: Associate Degree Difficulty w/ Childcare or Family Care: No Living arrangements: with family Spiritual care concerns: No Meds Home Medications and Allergies Home Medications ?Medication ?Instructions ?Recorded ?Confirmed ?Type acetaminophen 650 mg 650 mg PO Q12H 10/11/20 03/14/25 History tablet,extended release (Tylenol 8 Hour) carbidopa ER 50 mg-levodopa 200 mg 1 tablet PO QHS 10/11/20 03/14/25 History tablet,extended release cholecalciferol (vitamin D3) 25 2,000 unit PO DAILY 02/01/22 03/14/25 History mcg (1,000 unit) capsule lorazepam 0.5 mg tablet 0.5 mg PO TID PRN Anxiety 02/01/22 03/14/25 History lactulose 10 gram/15 mL oral See Rx Instructions .Route 10/29/23 03/14/25 Rx solution .COMPLEX #2,838 mL carbidopa ER 25 mg-levodopa 100 mg 1 tablet PO TID 03/23/24 03/15/25 History tablet,extended release zoledronic acid 5 mg/100 mL in 1 ea IV DIRECTED 03/23/24 03/14/25 History mannitol 5 %-water intravenous piggybck (Reclast) tramadol 50 mg tablet 50 mg PO DAILY PRN pain 03/14/25 03/14/25 History carbidopa 25 mg-levodopa 100 mg 1 tablet PO QID 03/15/25 03/15/25 History tablet Allergies Allergy/AdvReac Type Severity Reaction Status Date / Time gentamicin Allergy Intermediate Swelling Verified 03/14/25 17:51 Iodinated Contrast Media Allergy Hives Verified 03/14/25 17:51 Vital Signs Vital Signs - 24 hr 03/14/25 20:16 03/14/25 21:16 03/14/25 22:00 Temperature Pulse Rate 67 77 76 Pulse Rate [Monitor] 67 77 Respiratory Rate 18 16 Blood Pressure 104/63 110/66 Pulse Oximetry 98 98 Oxygen Delivery 03/14/25 22:00 03/14/25 22:16 03/14/25 23:16 Temperature Pulse Rate 76 76 74 Pulse Rate [Monitor] 77 74 Respiratory Rate 18 15 16 Blood Pressure 115/69 117/69 113/76 Pulse Oximetry 98 98 97 Oxygen Delivery 03/15/25 00:00 03/15/25 00:00 03/15/25 00:00 Temperature 97.9 F Pulse Rate 81 81 Pulse Rate [Monitor] Respiratory Rate 18 Blood Pressure 110/64 Pulse Oximetry 98 Oxygen Delivery Room Air 03/15/25 02:00 03/15/25 02:00 03/15/25 03:00 Temperature Pulse Rate 79 79 83 Pulse Rate [Monitor] Respiratory Rate 17 17 Blood Pressure 121/75 109/58 L Pulse Oximetry 97 96 Oxygen Delivery 03/15/25 04:00 03/15/25 04:00 03/15/25 04:00 Temperature 97.8 F Pulse Rate 79 80 Pulse Rate [Monitor] Respiratory Rate 16 Blood Pressure 102/58 L Pulse Oximetry 96 Oxygen Delivery Room Air 03/15/25 05:00 03/15/25 06:00 03/15/25 06:21 Temperature Pulse Rate 74 76 76 Pulse Rate [Monitor] Respiratory Rate 20 20 Blood Pressure 96/57 L 91/48 L Pulse Oximetry 95 99 Oxygen Delivery 03/15/25 07:00 03/15/25 08:00 03/15/25 08:00 Temperature 98.1 F Pulse Rate 72 82 81 Pulse Rate [Monitor] Respiratory Rate 18 18 Blood Pressure 92/64 L 96/54 L Pulse Oximetry 100 98 Oxygen Delivery 03/15/25 09:00 03/15/25 10:00 03/15/25 10:00 Temperature Pulse Rate 93 87 93 Pulse Rate [Monitor] Respiratory Rate 16 15 Blood Pressure 97/69 L 97/68 L Pulse Oximetry 99 98 Oxygen Delivery 03/15/25 11:00 03/15/25 12:00 03/15/25 12:00 Temperature 97.6 F Pulse Rate 78 77 77 Pulse Rate [Monitor] Respiratory Rate 18 18 Blood Pressure 97/68 L 124/76 Pulse Oximetry 99 98 Oxygen Delivery 03/15/25 13:00 03/15/25 14:00 03/15/25 14:00 Temperature Pulse Rate 74 68 77 Pulse Rate [Monitor] Respiratory Rate 18 Blood Pressure 121/73 Pulse Oximetry 99 Oxygen Delivery 03/15/25 14:00 03/15/25 15:00 03/15/25 15:56 Temperature 98 F Pulse Rate 77 78 84 Pulse Rate [Monitor] Respiratory Rate 15 Blood Pressure 119/65 Pulse Oximetry 98 Oxygen Delivery 03/15/25 16:00 03/15/25 18:00 03/15/25 18:30 Temperature 98 F Pulse Rate 79 76 78 Pulse Rate [Monitor] Respiratory Rate 16 Blood Pressure 104/58 L Pulse Oximetry 98 Oxygen Delivery 03/15/25 20:00 Temperature 98.1 F Pulse Rate 78 Pulse Rate [Monitor] Respiratory Rate 16 Blood Pressure 106/66 Pulse Oximetry 97 Oxygen Delivery Exam Const: General: comfortable and no acute distress Other: , female, elderly, nontoxic appearance HENMT: Face/Nose/Sinus: Normal nares present Mouth: Yes moist mucous membranes Eyes: General: appearance normal, both eyes and all related structures Sclera: sclerae normal Pupils: Equal, round and reactive pupils present EOM: EOMs intact bilaterally Resp: Effort & Inspection: normal respiratory effort Auscultation: clear to auscultation bilaterally Cardio: Rate: regular rate Rhythm: regular rhythm Other: S1-S2 present without murmur, rub, ectopy GI: Other: Abdomen soft, nondistended, nontender. Normoactive bowel sounds in all quadrants. Skin: General skin exam: normal color and no rashes or lesions noted Wounds: no wounds Neuro: Speech: normal speech Motor exam (neuro): 5/5 motor strength present throughout Sensory Exam: normal sensation Other: A&O x4 Extrem: General: normal to inspection Psych: Mental Status: mental status grossly normal Affect: normal affect Other: Good insight and judgment, very pleasant Results Labs 03/15/25 08:34 03/15/25 08:34 Labs: Short CBC 03/15/25 Range/Units 08:34 WBC 18.4 H (4.5-10.0) K/mm3 Hgb 12.9 (12.0-15.0) g/dL Hct 38.4 (37.0-47.0) % Plt Count 283 (150-375) k/mm3 BMP 03/15/25 08:34 Sodium 134 L Potassium 4.2 Chloride 102 Carbon Dioxide 21 L BUN 13 Creatinine 0.62 L Glucose 197 H Calcium 10.2 Liver Function 03/15/25 Range/Units 08:34 Total Bilirubin 0.5 (0.2-1.3) mg/dL AST 40 H (14-36) U/L ALT 12 (6-35) U/L Alkaline Phosphatase 50 (38-126) U/L Albumin 4.2 (3.5-5.1) g/dL Quality VTE Prophylaxis VTE prophylaxis: mechanical ordered Hospitalist MIPS Advance Care Plan I have confirmed that the patient's Advanced Care Plan is present, code status is documented, or surrogate decision maker is listed in patient medical record.: Yes Medication Reconciliation I have utilized all available resources to obtain, update and review the patients current medications (includes all prescriptions, OTC, herbals, cannabis, and nutritional supplements).: Yes
[2025-03-15] MEDS: CARBIDOPA/LEVODOPA 25/100 MG CR TABLET 2 TABLET PO (20:51)
[2025-03-16] VITALS: PULSE 82
[2025-03-16 02:00] VITALS: PULSE 64
[2025-03-16 04:00] VITALS: BP 106/56; PULSE 71; PULSE 83; RESP 14; TEMP 36.7; O2SAT 97
[2025-03-16] MEDS: CARBIDOPA/LEVODOPA 25/100 MG TABLET 1 TABLET PO ×3 (04:05→12:10)
[2025-03-16 04:14] LABS: Hematocrit 37.5 % (37.0-47.0); Hemoglobin 12.4 g/dL (12.0-15.0); Mean Corpuscular HGB Conc 33.1 g/dl (32-36); Mean Corpuscular Hemoglobin 33.3 pg (26-34); Mean Corpuscular Volume 100.8 fl (80-100); Platelet Count Result 278 k/mm3 (150-375); Red Blood Count 3.72 M/mm3 (4.2-5.4); White Blood Count 12.0 K/mm3 (4.5-10.0)
[2025-03-16 04:33] LABS: Alanine Aminotransferase 6 U/L (6-35); Albumin Level 3.7 g/dL (3.5-5.1); Alkaline Phosphatase 63 U/L (38-126); Anion Gap 4 mmol/L (4-12); Aspartate Amino Transferase 30 U/L (14-36); Bilirubin,Total 0.2 mg/dL (0.2-1.3); Blood Urea Nitrogen 18 mg/dL (7-17); Calcium 10.3 mg/dL (8.4-10.2); Carbon Dioxide 28 mmol/L (22-30); Chloride 105 mmol/L (98-107); Estimated CRCL calculation 47 ml/min; Estimated Glomerular Filt Rate > 60; Glucose 106 mg/dL (65-110); Magnesium 1.9 mg/dL (1.6-2.3); Potassium 3.8 mmol/L (3.4-5.0); Sodium 137 mmol/L (137-145); Total Protein 6.2 g/dL (6.3-8.2)
[2025-03-16 06:00] VITALS: PULSE 75
[2025-03-16 08:00] VITALS: BP 106/72; PULSE 84; PULSE 92; RESP 20; TEMP 36.9; O2SAT 98
--- NOTE | 2025-03-16 08:11 | P.PNIM_ITS ---
Progress Note: A&P Assessment and Plan (1) Stress-induced cardiomyopathy: Code(s): I51.81 - Takotsubo syndrome Status: Acute Assessment and Plan: Patient initially presented on 03/14 with acute retrosternal chest pain. Initial workup concerning for STEMI and elevated troponin. pharmacy laboratory technician was emergently activated, see cardiac catheterization results below. Findings more so concerning for stressed induced cardiomyopathy with apical hypokinesis. - echo, 03/15: LV systolic function normal, estimated EF 50-55%, mildly increased LV wall thickness, diastolic function grade 1, mid anteroseptal and mid inferior lateral wall are hypokinetic, AV not well visualized but appears to have mild regurgitation - continue aspirin, start statin - hold beta-meredith, BP soft and was started on midodrine. States she will not likely take the medication (midodrine) as her blood pressure has previously varied and has varied while she is here. Recommended discussion with the cardiac team. - cardiology consulted, see notes - obtaining records from [facility] for review of past echocardiograms, also reports there are reports at [facility] [place] in [place] (2) ST elevation (STEMI) myocardial infarction: Qualifiers: Involved coronary artery: unspecified coronary artery Qualified Code(s): I21.3 - ST elevation (STEMI) myocardial infarction of unspecified site Code(s): I21.3 - ST elevation (STEMI) myocardial infarction of unspecified site Status: Acute Assessment and Plan: - see above - troponin: 1.87 -> 4.29 -> 3.59 - cardiac catheterization, 03/14: LV-gram Apical hypokinesis ejection fraction 35-40% Conclusion:: No obstructive coronary artery disease Left ventricular systolic dysfunction consistent with a stress-induced myopathy (3) Nonischemic dilated cardiomyopathy: Code(s): I42.0 - Dilated cardiomyopathy Status: Acute Assessment and Plan: - see above (4) Ascending aortic aneurysm: Qualifiers: Presence of rupture: without rupture Qualified Code(s): I71.21 - Aneurysm of the ascending aorta, without rupture Code(s): I71.21 - Aneurysm of the ascending aorta, without rupture Status: Acute Assessment and Plan: - CTA chest/abdomen/pelvis, 03/14: There is aneurysmal dilatation of the ascending aorta maximally measuring 4.4 cm. Mild atherosclerotic changes noted of the thoracic aorta and abdominal aorta with ectasia but no aneurysm. - appears to be similar to baseline with no dissection on CT scan neck, monitoring (5) Parkinson's disease: Qualifiers: Dyskinesia presence: unspecified whether dyskinesia Fluctuating manifestations: without fluctuating manifestations Qualified Code(s): G20.A1 - Parkinson's disease without dyskinesia, without mention of fluctuations Code(s): G20 - Parkinson's disease Status: Chronic Assessment and Plan: - continue Sinemet (6) Smoking addiction: Code(s): F17.200 - Nicotine dependence, unspecified, uncomplicated Status: Acute Assessment and Plan: - has been counseled on smoking cessation (7) Constipation: Qualifiers: Constipation type: chronic idiopathic constipation Qualified Code(s): K59.04 - Chronic idiopathic constipation Code(s): K59.00 - Constipation, unspecified Status: Chronic Assessment and Plan: - continue lactulose - started on MiraLax on 03/15 Plan Diet: Heart healthy GI Prophylaxis: N/a DVT Prophylaxis: SCDs IV fluids: 125 mL/hour x1 L, completed Lines/Tubes: Peripheral IV Code Status: Full code Subjective Date/time seen: 03/16/25 08:11 Interval history: Patient has a history of Parkinson's and orthostatic hypotension. Patient wants to discuss with her primary global supply chain director and take GDMT medication. Cleared by cardiology for discharge. Patient underwent cardiac catheterization shows left ventricle hypokinesis with ejection fraction 35-40% but no significant stenosis Review of Systems Review of Systems: All systems reviewed & are unremarkable except as noted in HPI and below Exam Narrative: benign Const: General: comfortable and no acute distress Other: , female, elderly, nontoxic appearance HENMT: Face/Nose/Sinus: Normal nares present Mouth: Yes moist mucous membranes Eyes: General: appearance normal, both eyes and all related structures Sclera: sclerae normal Pupils: Equal, round and reactive pupils present EOM: EOMs intact bilaterally Resp: Effort & Inspection: normal respiratory effort Auscultation: clear to auscultation bilaterally Cardio: Rate: regular rate Rhythm: regular rhythm Other: S1-S2 present without murmur, rub, ectopy GI: Other: Abdomen soft, nondistended, nontender. Normoactive bowel sounds in all quadrants. Skin: General skin exam: normal color and no rashes or lesions noted Wounds: no wounds Neuro: Cranial nerves: Yes Equal, round and reactive pupils present Speech: normal speech Motor exam (neuro): 5/5 motor strength present throughout Sensory Exam: normal sensation Other: A&O x4 Extrem: General: normal to inspection Psych: Mental Status: mental status grossly normal Affect: normal affect Other: Good insight and judgment, very pleasant Objective Data Vital Signs Vital Signs: Vital Signs - 24 hr 03/15/25 09:00 03/15/25 10:00 03/15/25 10:00 Temperature Pulse Rate 93 87 93 Respiratory Rate 16 15 Blood Pressure 97/69 L 97/68 L Pulse Oximetry 99 98 Oxygen Delivery 03/15/25 11:00 03/15/25 12:00 03/15/25 12:00 Temperature 97.6 F Pulse Rate 78 77 77 Respiratory Rate 18 18 Blood Pressure 97/68 L 124/76 Pulse Oximetry 99 98 Oxygen Delivery 03/15/25 13:00 03/15/25 14:00 03/15/25 14:00 Temperature Pulse Rate 74 68 77 Respiratory Rate 18 Blood Pressure 121/73 Pulse Oximetry 99 Oxygen Delivery 03/15/25 14:00 03/15/25 15:00 03/15/25 15:56 Temperature 98 F Pulse Rate 77 78 84 Respiratory Rate 15 Blood Pressure 119/65 Pulse Oximetry 98 Oxygen Delivery 03/15/25 16:00 03/15/25 18:00 03/15/25 18:30 Temperature 98 F Pulse Rate 79 76 78 Respiratory Rate 16 Blood Pressure 104/58 L Pulse Oximetry 98 Oxygen Delivery 03/15/25 20:00 03/15/25 20:00 03/15/25 20:00 Temperature 98.1 F Pulse Rate 78 71 Respiratory Rate 16 Blood Pressure 106/66 Pulse Oximetry 97 Oxygen Delivery Room Air 03/15/25 22:00 03/15/25 23:54 03/16/25 00:00 Temperature 98.1 F Pulse Rate 73 70 Respiratory Rate 14 Blood Pressure 91/54 L Pulse Oximetry 96 Oxygen Delivery Room Air 03/16/25 00:00 03/16/25 02:00 03/16/25 04:00 Temperature 98.1 F Pulse Rate 82 64 83 Respiratory Rate 14 Blood Pressure 106/56 L Pulse Oximetry 97 Oxygen Delivery 03/16/25 04:00 03/16/25 04:00 03/16/25 06:00 Temperature Pulse Rate 71 75 Respiratory Rate Blood Pressure Pulse Oximetry Oxygen Delivery Room Air Intake/Output Intake/Output: Intake & Output 03/13/25 03/14/25 03/15/25 03/16/25 23:59 23:59 23:59 23:59 Intake Total 2660 220 Output Total 650 1850 Balance -650 810 220 Meds/Results Medications: Active Medications Generic Name Dose Route Start Last Admin Trade Name Freq PRN Reason Stop Dose Admin Acetaminophen 650 mg 03/15/25 09:38 03/15/25 20:51 Acetaminophen 325 Mg Tablet PO 650 mg Q8HR PRN Administration Mild Pain (1-3) or Fever Atorvastatin Calcium 20 mg 03/15/25 09:00 03/15/25 09:58 Atorvastatin 20 Mg Tablet PO Not Given DAILY [facility] Carbidopa/Levodopa 2 tablet 03/15/25 21:00 03/15/25 20:51 Carbidopa/Levodopa 25/100 Mg Cr Tablet PO 2 tablet QHS GHADA Administration Carbidopa/Levodopa 1 tablet 03/15/25 16:00 03/16/25 04:05 Carbidopa/Levodopa 25/100 Mg Tablet PO 1 tablet 0400,0800,1200,1600 GHADA Administration Lactulose 10 gm 03/15/25 09:00 03/15/25 16:04 Lactulose 20 Gm/30 Ml Udc PO 10 gm BID GHADA Administration Lisinopril 2.5 mg 03/16/25 09:00 Lisinopril 2.5 Mg Tablet PO QAM [facility] Metoprolol Succinate 12.5 mg 03/16/25 09:00 Metoprolol Succinate Ext Rel 12.5 Mg Tabcr PO QAM [facility] Perflutren Lipid Microsphere 0 ml 03/14/25 17:31 Perflutren Lipid Microspheres 1.5 Ml Vial Diluted To 10 Ml Total Volume IV PUSH 03/17/25 17:31 ONCE PRN adequate visualization Protocol Polyethylene Glycol 17 gm 03/15/25 09:00 03/15/25 08:59 Polyethylene Glycol 3350 17 Gm Powd.Pack PO Not Given QAM [facility] Vitamin D 50 mcg 03/16/25 09:00 Cholecalciferol (Vitamin D3) 25 Mcg (1,000 Units) Tablet PO DAILY [facility] Radiology Results: ITS Impressions Chest X-Ray 03/14/25 13:43 IMPRESSION: 1. No acute cardiopulmonary findings. Chest/Abdomen/Pelvis CTA 03/14/25 15:14 IMPRESSION: 1. No aneurysm or dissection identified. No acute process. 2. Incidental findings above Labs Labs: Laboratory Results - last 24 hr 03/15/25 03/16/25 08:34 03:46 WBC 18.4 H 12.0 H RBC 3.88 L 3.72 L Hgb 12.9 12.4 Hct 38.4 37.5 MCV 99.0 100.8 H MCH 33.2 33.3 MCHC 33.6 33.1 RDW 13.3 13.6 Plt Count 283 278 MPV 9.5 9.9 Sodium 134 L 137 Potassium 4.2 3.8 Chloride 102 105 Carbon Dioxide 21 L 28 Anion Gap 11 4 BUN 13 18 H Creatinine 0.62 L 0.70 Estim Creat Clear Calc 53 47 Estimated GFR > 60 > 60 Glucose 197 H 106 Calcium 10.2 10.3 H Magnesium 1.7 1.9 Total Bilirubin 0.5 0.2 AST 40 H 30 ALT 12 6 Alkaline Phosphatase 50 63 NT-Pro-B Natriuret Pep 4660 H Total Protein 7.1 6.2 L Albumin 4.2 3.7 TSH (Reflex) 0.351 L Free T4 1.46 Total T3 0.62 L Quality VTE Prophylaxis VTE prophylaxis: mechanical ordered Hospitalist MIPS Advance Care Plan I have confirmed that the patient's Advanced Care Plan is present, code status is documented, or surrogate decision maker is listed in patient medical record.: Yes Medication Reconciliation I have utilized all available resources to obtain, update and review the patients current medications (includes all prescriptions, OTC, herbals, cannabis, and nutritional supplements).: Yes
[2025-03-16] MEDS: ACETAMINOPHEN 325 MG TABLET 650 MG PO (08:22)
[2025-03-16] MEDS: LACTULOSE 20 GM/30 ML UDC 10 GM PO (08:25)
[2025-03-16] MEDS: CHOLECALCIFEROL (VITAMIN D3) 25 MCG (1,000 UNITS) TABLET 50 MCG PO (08:26)
--- NOTE | 2025-03-16 09:24 | P.PNCA_ITS ---
Progress Note: A&P Assessment and Plan (1) Stress-induced cardiomyopathy: Code(s): I51.81 - Takotsubo syndrome Status: Acute (2) Ascending aortic aneurysm: Qualifiers: Presence of rupture: without rupture Qualified Code(s): I71.21 - Aneurysm of the ascending aorta, without rupture Code(s): I71.21 - Aneurysm of the ascending aorta, without rupture Status: Acute (3) Acute non-ST segment elevation myocardial infarction: Code(s): I21.4 - Non-ST elevation (NSTEMI) myocardial infarction Status: Acute (4) Parkinson's disease: Qualifiers: Dyskinesia presence: unspecified whether dyskinesia Fluctuating manifestations: without fluctuating manifestations Qualified Code(s): G20.A1 - Parkinson's disease without dyskinesia, without mention of fluctuations Code(s): G20 - Parkinson's disease Status: Chronic Plan Assessment: 1. Acute non ST segment elevation myocardial infarction: 74-year-old female without any previous cardiac problems admitted with crushing chest pain associated with elevated cardiac enzymes and EKG changes. I specifically did show significant ST segment elevation. Subsequent cardiac catheterization revealed 30% LAD disease and reduced systolic function in range of 30-35%. The differential diagnosis may include -Acute vasospastic disease in the LAD followed by chest pain and myocardial injury and subsequently on reduced ejection fraction due to stunned myocardium. -Acute stress-induced cardiomyopathy. Generally seen in younger female patient. Echocardiogram should help to rule out takotsubo cardiomyopathy. 2. Nonischemic dilated cardiomyopathy. 3. Hypotension with blood pressure as low as 96/54 mm of mercury. 4. History of Parkinson's disease, hyperparathyroidism. 5. Aneurysmal dilatation of ascending aorta measuring 4.4 cm. Recommendations: 1. Clinically patient is stable without shortness of breath or chest pain. BNP done this morning was 4660. Clinically patient appears to be without fluid overload at this time. 2. Echocardiogram performed on 03/15/2025 revealed normal left ventricular size and systolic function estimated at 50-55% with mild left ventricular hypertrophy and grade 1 diastolic dysfunction. No significant pericardial effusion. Mild aortic regurgitation is noted. Classic features of Takotsubo cardiomyopathy was not seen. Ejection fraction has reverted back to normal on echocardiogram compared to cardiac catheterization report. 3. Blood pressure remains remains soft. Blood pressure is 106/72 this morning and heart rate is 84-92 per minute. Clinically patient is stable without shortness of breath, chest pain or leg edema. Patient is resistant to taking new or medications. Patient is concerned about starting the mitral drain and will also hold it as long as the blood pressure is stable. 4. Admitting chest x-ray was negative for acute cardiac findings and normal c ardiac size. CT scan of the chest and abdomen with CT angiogram was negative for any acute aortic dissection. Incidental finding noted with aneurysm of ascending aorta measuring 4.4 cm. No other significant findings noted. 5. Consult hospitalist Service for Parkinson's. Blood pressure remains soft and therefore limitation for starting medication for this patient. Interestingly the ejection fraction now has come back to normal and patient remains asymptomatic. Increased activity. Monitor shows T changes on the monitor lead and a full will do 12 lead EKG. Patient possibly had spasm of the left anterior descending artery with the as crushing substernal chest pain and reduced systolic function with subsequently resolved. Patient is concerned about her visit with neurologist and Botox injection tomorrow. Increase activity in the hallway and okay to discharge patient after lunch if stable. Follow up with Cardiology Service in 7-10 days. . Subjective Date/time seen: 03/16/25 09:24 Interval history: Review of HPI: 74-year-old female with history of Parkinson's disease, abdominal aortic aneurysm presented to the emergency room with complaints of chest pain. Apparently at about 11:00 a.m. in the morning she had a sudden onset of severe crushing chest pain in the midsternum radiating through her back and across the upper shoulder. Patient felt extremely weak, short of breath and fatigued. Patient also felt a CP she has could pass out. Subsequently EMS was called and was given aspirin and nitroglycerin spray. There was some improvement of chest pain. Once in the emergency room her chest pain had improved. No history of previous myocardial infarction, history of angina or congestive heart failure. No complaints of fever or chills. No complaints of arm pain or shortness of breath or diaphoresis. No complaints of fever or chills. No complaints of abdominal pain nausea vomiting or diarrhea. Admitting blood pressure was 117/68 mm of mercury his heart rate was 97 per minute. Patient was afebrile and O2 saturation was 99% Admitting laboratory data oral device count 14,000 hemoglobin is 13.4 platelets are normal. Sodium 133, potassium is 3.7, BUN 16 creatinine 0.7. ProBNP is pending. Admitting EKG to pull the normal sinus rhythm with hyperacute T changes in the lateral leads possible inferior wall myocardial infarction. Patient had urgent cardiac catheterization done on 03/14/2020 by with SABA 3 flow and reduced ejection fraction range of 35-40%. Subjective; Patient was examined at the bedside. Patient is awake alert and appears comfortable without shortness of breath or chest pain. Patient did not take her metoprolol and lisinopril. Blood pressure remains soft this morning. No complaints of palpitations or leg edema. Review of Systems Review of Systems: Twelve point review of system was completed. Pertinent positive and negative findings per HPI. Cardiovascular negative for shortness of breath, chest pain, orthopnea or leg edema. Pulmonary negative for cough, hemoptysis or shortness of breath Neurovascular intact Exam Narrative: Patient was examined at bedside. Patient is awake alert and appears comfortable without any acute distress. Oriented x3. Normal cephalic and normal build. Head and neck examination is unremarkable. Head is atraumatic. Sclerae is nonicteric. ENT examination is negative. Neck is supple. There is no JVD or carotid bruit. Thyroid is not enlarged. There is no cervical adenopathy. Lungs are clear to auscultation percussion. Breathing is nonlabored. There is still crepitation or wheezing Cardiovascular positive for S1-S2 there is no significant murmurs S3-S4. Abdomen is soft and nontender. There is no hepatosplenomegaly. Bowel sounds present throughout Extremities reveal no pedal edema. Neurological examination is intact. Objective Data Vital Signs Vital Signs: Vital Signs - 24 hr 03/15/25 10:03/15/25 10:03/15/25 11:00 Temperature Pulse Rate 87 93 78 Respiratory Rate 15 18 Blood Pressure 97/68 L 97/68 L Pulse Oximetry 98 99 Oxygen Delivery 03/15/25 12:00 03/15/25 12:00 03/15/25 13:00 Temperature 36.4 C Pulse Rate 77 77 74 Respiratory Rate 18 Blood Pressure 124/76 Pulse Oximetry 98 Oxygen Delivery 03/15/25 14:00 03/15/25 14:00 03/15/25 14:00 Temperature Pulse Rate 68 77 77 Respiratory Rate 18 Blood Pressure 121/73 Pulse Oximetry 99 Oxygen Delivery 03/15/25 15:00 03/15/25 15:56 03/15/25 16:00 Temperature 36.6 C Pulse Rate 78 84 79 Respiratory Rate 15 Blood Pressure 119/65 Pulse Oximetry 98 Oxygen Delivery 03/15/25 18:00 03/15/25 18:30 03/15/25 20:00 Temperature 36.6 C 36.7 C Pulse Rate 76 78 78 Respiratory Rate 16 16 Blood Pressure 104/58 L 106/66 Pulse Oximetry 98 97 Oxygen Delivery 03/15/25 20:00 03/15/25 20:00 03/15/25 22:00 Temperature Pulse Rate 71 73 Respiratory Rate Blood Pressure Pulse Oximetry Oxygen Delivery Room Air 03/15/25 23:54 03/16/25 00:00 03/16/25 00:00 Temperature 36.7 C Pulse Rate 70 82 Respiratory Rate 14 Blood Pressure 91/54 L Pulse Oximetry 96 Oxygen Delivery Room Air 03/16/25 02:00 03/16/25 04:00 03/16/25 04:00 Temperature 36.7 C Pulse Rate 64 83 Respiratory Rate 14 Blood Pressure 106/56 L Pulse Oximetry 97 Oxygen Delivery Room Air 03/16/25 04:00 03/16/25 06:00 03/16/25 08:00 Temperature 36.9 C Pulse Rate 71 75 92 Respiratory Rate 20 Blood Pressure 106/72 Pulse Oximetry 98 Oxygen Delivery Intake/Output Intake/Output: Intake & Output 03/13/25 03/14/25 03/15/25 03/16/25 23:59 23:59 23:59 23:59 Intake Total 2660 220 Output Total 650 1850 Balance -650 810 220 Meds/Results Medications: Active Medications Generic Name Dose Route Start Last Admin Trade Name Freq PRN Reason Stop Dose Admin Acetaminophen 650 mg 03/15/25 09:38 03/16/25 08:22 Acetaminophen 325 Mg Tablet PO 650 mg Q8HR PRN Administration Mild Pain (1-3) or Fever Atorvastatin Calcium 20 mg 03/15/25 09:00 03/16/25 08:33 Atorvastatin 20 Mg Tablet PO Not Given DAILY GHADA Carbidopa/Levodopa 2 tablet 03/15/25 21:00 03/15/25 20:51 Carbidopa/Levodopa 25/100 Mg Cr Tablet PO 2 tablet QHS GHADA Administration Carbidopa/Levodopa 1 tablet 03/15/25 16:00 03/16/25 08:26 Carbidopa/Levodopa 25/100 Mg Tablet PO 1 tablet 0400,0800,1200,1600 GHADA Administration Lactulose 10 gm 03/15/25 09:00 03/16/25 08:25 Lactulose 20 Gm/30 Ml Udc PO 10 gm BID GHADA Administration Lisinopril 2.5 mg 03/16/25 09:00 03/16/25 08:34 Lisinopril 2.5 Mg Tablet PO Not Given QAM GHADA Metoprolol Succinate 12.5 mg 03/16/25 09:00 03/16/25 08:34 Metoprolol Succinate Ext Rel 12.5 Mg Tabcr PO Not Given QAM GHADA Perflutren Lipid Microsphere 0 ml 03/14/25 17:31 Perflutren Lipid Microspheres 1.5 Ml Vial Diluted To 10 Ml Total Volume IV PUSH 03/17/25 17:31 ONCE PRN adequate visualization Protocol Polyethylene Glycol 17 gm 03/15/25 09:00 03/16/25 08:31 Polyethylene Glycol 3350 17 Gm Powd.Pack PO Not Given QAM GHADA Vitamin D 50 mcg 03/16/25 09:00 03/16/25 08:26 Cholecalciferol (Vitamin D3) 25 Mcg (1,000 Units) Tablet PO 50 mcg DAILY GHADA Administration Radiology Results: ITS Impressions Chest X-Ray 03/14/25 13:43 IMPRESSION: 1. No acute cardiopulmonary findings. Chest/Abdomen/Pelvis CTA 03/14/25 15:14 IMPRESSION: 1. No aneurysm or dissection identified. No acute process. 2. Incidental findings above Labs Labs: Laboratory Results - last 24 hr 03/15/25 03/16/25 08:34 03:46 WBC 12.0 H RBC 3.72 L Hgb 12.4 Hct 37.5 MCV 100.8 H MCH 33.3 MCHC 33.1 RDW 13.6 Plt Count 278 MPV 9.9 Sodium 137 Potassium 3.8 Chloride 105 Carbon Dioxide 28 Anion Gap 4 BUN 18 H Creatinine 0.70 Estim Creat Clear Calc 47 Estimated GFR > 60 Glucose 106 Calcium 10.3 H Magnesium 1.9 Total Bilirubin 0.2 AST 30 ALT 6 Alkaline Phosphatase 63 Total Protein 6.2 L Albumin 3.7 TSH (Reflex) 0.351 L Free T4 1.46 Total T3 0.62 L
[2025-03-16 10:00] VITALS: PULSE 85
--- NOTE | 2025-03-16 10:24 | ECG_ITS ---
Test Date: 2025-03-16 10:52:52 Measurements Intervals [place] Rate: 80 P: 68 [place]: 172 QRS: 29 QRSD: 85 T: 251 QT: 380 QTc: 439 Interpretive Statements SINUS RHYTHM MINIMAL Q WAVES- INFERIOR LEADS ST-T WAVE ABNORMALITY IN ANTEROLAT/INF LEADS- CONSIDER ISCHEMIA BASELINE ARTIFACT- I, II, AVR, AVL, AVF, V1-V6 ABNORMAL ECG Compared to ECG 03/14/2025 15:49:04 Possible ischemia now present Electronically Signed On 03-16-2025 10:56:47 CDT by Theo Yanez D.O.
--- NOTE | 2025-03-16 12:30 | PC.NURSE ---
On 03/16/25, the CROTCH BREAKER, [Dwayne Marino ], provided care and completed [facility] documentation on this patient. I have reviewed the CROTCH BREAKER's documentation and agree with the findings.
--- NOTE | 2025-04-06 15:23 | PM.DS ---
DS: Admitting Diagnosis Discharge Date 03/16/25 Admitting Diagnosis 1. Acute non ST segment elevation myocardial infarction: 74-year-old female without any previous cardiac problems 1000 with crushing chest pain associated with elevated cardiac enzymes and EKG changes. I specifically did show significant ST segment elevation. Subsequent cardiac catheterization revealed 30% lad disease and reduced systolic function in range of 30-35%. The differential diagnosis may include -Acute vasospastic disease in the LAD followed by chest pain and myocardial injury he subsequently on reduced ejection fraction due to stunned myocardium -Acute stress-induced cardiomyopathy. Generally seen in younger female patient. Echocardiogram should help to rule out takotsubo cardiomyopathy. 2. Nonischemic dilated cardiomyopathy. 3. Hypotension with blood pressure as low as 96/54 mm of mercury. 4. History of Parkinson's disease, hyperparathyroidism. 5. Aneurysmal dilatation of ascending aorta measuring 4.4 cm. DS: Discharge Diagnosis Discharge Diagnosis Plan 1) Stress-induced cardiomyopathy: Code(s): I51.81 - Takotsubo syndrome Status: Acute (2) Ascending aortic aneurysm: Qualifiers: Presence of rupture: without rupture Qualified Code(s): I71.21 - Aneurysm of the ascending aorta, without rupture Code(s): I71.21 - Aneurysm of the ascending aorta, without rupture Status: Acute (3) Acute non-ST segment elevation myocardial infarction: Code(s): I21.4 - Non-ST elevation (NSTEMI) myocardial infarction Status: Acute (4) Parkinson's disease: Qualifiers: Dyskinesia presence: unspecified whether dyskinesia Fluctuating manifestations: without fluctuating manifestations Qualified Code(s): G20.A1 - Parkinson's disease without dyskinesia, without mention of fluctuations Code(s): G20 - Parkinson's disease Status: Chronic DS: Summary Hospital Course Reason for hospitalization: 74-year-old female with history of Parkinson's disease, abdominal aortic aneurysm presented to the emergency room with complaints of chest pain. Apparently at about 11:00 a.m. in the morning she had a sudden onset of severe crushing chest pain in the midsternum radiating through her back and across the upper shoulder. Patient felt extremely weak, short of breath and fatigued. Patient also felt a CP she has could pass out. Subsequently EMS was called and was given aspirin and nitroglycerin spray. There was some improvement of chest pain. Once in the emergency room her chest pain had improved. No history of previous myocardial infarction, history of angina or congestive heart failure. No complaints of fever or chills. No complaints of arm pain or shortness of breath or diaphoresis. No complaints of fever or chills. No complaints of abdominal pain nausea vomiting or diarrhea. Admitting blood pressure was 117/68 mm of mercury his heart rate was 97 per minute. Patient was afebrile and O2 saturation was 99% Admitting laboratory data oral device count 14,000 hemoglobin is 13.4 platelets are normal. Sodium 133, potassium is 3.7, BUN 16 creatinine 0.7. ProBNP is pending. Admitting EKG to pull the normal sinus rhythm with hyperacute T changes in the lateral leads possible inferior wall myocardial infarction. Patient had urgent cardiac catheterization done on 03/14/2020 by with SABA 3 flow and reduced ejection fraction range of 35-40%. Hospital Course: 1. Acute non ST segment elevation myocardial infarction: 74-year-old female without any previous cardiac problems admitted with crushing chest pain associated with elevated cardiac enzymes and EKG changes. I specifically did show significant ST segment elevation. Subsequent cardiac catheterization revealed 30% LAD disease and reduced systolic function in range of 30-35%. The differential diagnosis may include -Acute vasospastic disease in the LAD followed by chest pain and myocardial injury and subsequently on reduced ejection fraction due to stunned myocardium. -Acute stress-induced cardiomyopathy. Generally seen in younger female patient. Echocardiogram should help to rule out takotsubo cardiomyopathy. 2. Nonischemic dilated cardiomyopathy. 3. Hypotension with blood pressure as low as 96/54 mm of mercury. 4. History of Parkinson's disease, hyperparathyroidism. 5. Aneurysmal dilatation of ascending aorta measuring 4.4 cm. Recommendations: 1. Clinically patient is stable without shortness of breath or chest pain. BNP done this morning was 4660. Clinically patient appears to be without fluid overload at this time. 2. Echocardiogram performed on 03/15/2025 revealed normal left ventricular size and systolic function estimated at 50-55% with mild left ventricular hypertrophy and grade 1 diastolic dysfunction. No significant pericardial effusion. Mild aortic regurgitation is noted. Classic features of Takotsubo cardiomyopathy was not seen. Ejection fraction has reverted back to normal on echocardiogram compared to cardiac catheterization report. 3. Blood pressure remains remains soft. Blood pressure is 106/72 this morning and heart rate is 84-92 per minute. Clinically patient is stable without shortness of breath, chest pain or leg edema. Patient is resistant to taking new or medications. Patient is concerned about starting the mitral drain and will also hold it as long as the blood pressure is stable. 4. Admitting chest x-ray was negative for acute cardiac findings and normal cardiac size. CT scan of the chest and abdomen with CT angiogram was negative for any acute aortic dissection. Incidental finding noted with aneurysm of ascending aorta measuring 4.4 cm. No other significant findings noted. 5. Consult hospitalist Service for Parkinson's. Blood pressure remains soft and therefore limitation for starting medication for this patient. Interestingly the ejection fraction now has come back to normal and patient remains asymptomatic. Increased activity. Monitor shows T changes on the monitor lead and a full will do 12 lead EKG. Patient possibly had spasm of the left anterior descending artery with the as crushing substernal chest pain and reduced systolic function with subsequently resolved. Patient is concerned about her visit with neurologist and Botox injection tomorrow. Increase activity in the hallway and okay to discharge patient after lunch if stable. Follow up with Cardiology Service in 7-10 days. . Time spent discussing smoking cessation with patient: more than 10 minutes Status at Discharge Cognitive/behavioral status at discharge: Normal Functional status at discharge: independent ambulation Overall status at discharge: patient is back to baseline Time Spent with Patient Time attestation: Total time spent providing and/or coordinating discharge services: Time spent: Less than 30 minutes Exam Narrative: Patient was examined at bedside. Patient is awake alert and appears comfortable without any acute distress. Oriented x3. Normal cephalic and normal build. Head and neck examination is unremarkable. Head is atraumatic. Sclerae is nonicteric. ENT examination is negative. Neck is supple. There is no JVD or carotid bruit. Thyroid is not enlarged. There is no cervical adenopathy. Lungs are clear to auscultation percussion. Breathing is nonlabored. There is still crepitation or wheezing Cardiovascular positive for S1-S2 there is no significant murmurs S3-S4. Abdomen is soft and nontender. There is no hepatosplenomegaly. Bowel sounds present throughout Extremities reveal no pedal edema. Neurological examination is intact. Discharge Plan Discharge Attending physician on discharge: Margaret Henderson Consulting providers: Myah Paulino,Theo M.; Dwayne Ayoub; Danilo Trevino; Juli Pearson; Abraham Fishman; Orlando Quan; Max Iqbal Discharging Clinician: Jose Raul Caballero Patient Disposition: Home Activity: other - see discharge instructions Diet: heart healthy Wound Care Instructions: remove dressing to shower Discharge Instructions: [facility] [address] [place], [place] [id number] DISCHARGE INSTRUCTIONS - POST CARDIAC CATH Activity Restriction 1. No Driving for 24 hours 2. No lifting, pushing or pulling more than 10 LBS for 1 week 3. No strenuous activity or exercising for 1 week 4. Shower after 24 hours, do not soak in any water such as hot tubs or bath tubs Wound Care 1. Remove dressing 24 hours after your procedure prior to showering 2. Lather soap and water to puncture site and rinse then pat dry 3. You may apply a new band aid to the site and remove after 24 hours then leave open to air 4. Monitor daily for redness, drainage, mild swelling and fever Report IMMEDIATELY: CALL 911 1. If you experience any swelling or bleeding from puncture site. Hold firm pressure over the puncture site until help arrives 2. If you experience any new discomfort in you back, neck, jaw, stomach or arm. Any shortness of breath, nausea, vo miting, or cold sweats 3. If you experience any swelling, tenderness, or numbness in your leg or if your leg becomes cold or has color changes. Follow Up 1. Follow your doctors discharge instructions on resuming your medications. Some medications will need to be held after your procedure 2. Follow up with the office to schedule your next appointment with your doctor 3. Drink plenty of water following your procedure, avoid alcohol If you received a stent or a closure device keep your card with you such as in your wallet. Present your card to your doctor appointments to update your health care information. *For any other questions please call the office at [phone]. Office hours are 8AM 4:30PM Saturday through Saturday. Patient Instructions: How to Stop Smoking (DC), Heart Catheterization (GEN) Patient Language: Upper Sorbian Stand Alone Forms: General Discharge Information Follow-up/Referrals: Ronen Montoya MD [Physician, Cardiology] - Call for Appointment Discharge Medications: New atorvastatin 20 mg Tablet 20 mg PO DAILY 90 Days Qty: 90 1RF Continued acetaminophen [Tylenol 8 Hour] 650 mg tablet extended release 650 mg PO Q12H carbidopa-levodopa 50-200 mg tablet extended release 1 tablet PO QHS lorazepam 0.5 mg tablet 0.5 mg PO TID PRN (Reason: Anxiety) carbidopa-levodopa 25-100 mg tablet extended release 1 tablet PO TID cholecalciferol (vitamin D3) 25 mcg (1,000 unit) capsule 2,000 unit PO DAILY tramadol 50 mg tablet 50 mg PO DAILY PRN (Reason: pain) Rx Instructions: take 25 mg - 50 mg as needed for pain. carbidopa-levodopa 25-100 mg tablet 1 tablet PO QID Patient Comments: Patient states she takes at 0400, 0800, 1200, and 1600. lactulose 10 gram/15 mL solution See Rx Instructions .ROUTE .COMPLEX Qty: 2838 1RF Dose Instruction: TAKE 15ML BY MOUTH TWICE A DAY Rx Instructions: TAKE 15ML BY MOUTH TWICE A DAY Discontinued zoledronic [id number] [Reclast] 5 mg/100 mL piggyback 1 ea IV DIRECTED Patient Comments: Patient receives infusion every spring (once a year). Date of admission: 03/14/25 16:12 Primary Care Provider: Roxie Meadows Admitting Provider: Ronen Montoya Attending physician on admission: Jose Raul Caballero Condition: Stable
== END 2025-03-16 12:48 | disposition home or self-care (01) | DRG 281 ==
LOC: ANHED 14:06 → ANHICU 16:23 → ANHIMU 03-16 10:28 → ANHICU 03-17 16:11 → ANHIMU 03-17 16:11
PROVIDERS: Emergency Medicine; Internal Medicine; Admitting Provider Internal Medicine Interventional Cardiology; Emergency Provider Physician Assistant; PCP Family Medicine; Visit Provider Internal Medicine Adolescent Medicine
PROC: 4A023N7 Measurement of Cardiac Sampling and Pressure, Left Heart, Percutaneous Approach (ICD-10-PCS; CPT 93452; principal; 2025-03-14 16:30)
PROC: 4A023N7 Measurement of Cardiac Sampling and Pressure, Left Heart, Percutaneous Approach (ICD-10-PCS; 2025-03-14 16:30)
DX: I21.4 Non-ST elevation (NSTEMI) myocardial infarction (principal); I42.0 Dilated cardiomyopathy; I51.81 Takotsubo syndrome; I71.21 Aneurysm of the ascending aorta, without rupture; I95.9 Hypotension, unspecified; E55.9 Vitamin D deficiency, unspecified; F17.210 Nicotine dependence, cigarettes, uncomplicated; F41.9 Anxiety disorder, unspecified; F32.A Depression, unspecified; G20.A1 Parkinson's disease without dyskinesia, without mention of fluctuations; H35.30 Unspecified macular degeneration; K59.04 Chronic idiopathic constipation; K21.9 Gastro-esophageal reflux disease without esophagitis; K58.9 Irritable bowel syndrome, unspecified; Z96.82 Presence of neurostimulator
CPT/HCPCS: 36415; 71046; 71275; 74174; 80053; 83690; 83735; 83880; 84439; 84443; 84480; 84484; 85025; 85027; 85610; 85730; 87641; 93005; 93306; 93458; 96374; 96375; 99285; A9270; C1760; C1887; C1894; G0269; J1200; J1644; J2003; J2250; J2270; J2305; J2919; J3010; J7030; J7040; Q9967